=== PATIENT | female | born 1960 | race Caucasian/White ===

== ENCOUNTER 2022-03-16 16:34 | Inpatient (IN) | payer OTHER ==
--- NOTE | 2022-03-16 16:59 | Emergency Department Report ---
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 Pt also reported to be tachycardia. 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 No other modifying or associated factors reported. - Related Data Allergies/Adverse Reactions: Allergies Allergy/AdvReac Type Severity Reaction Status Date / Time No Known Allergies Allergy Unverified 03/16/22 16:49 ED Review of Systems ROS: Stated complaint: STROKE Other details as noted in HPI Comment: All other systems reviewed and negative Neurological: weakness, confusion, abnormal gait ED Past Medical Hx - Past Medical History Previous Medical History?: Yes Hx CVA: Yes ED Neuro Physical Exam - General Limitations: Altered Mental Status, Physical Limitation General appearance: lethargic Suspected Stroke: Yes - Head Head exam: Present: atraumatic - Eye Pupils: Present: normal accommodation - ENT ENT exam: Present: normal exam, normal orophraynx, mucous membranes dry - Neck Neck exam: Present: normal inspection, full ROM. Absent: tenderness - Respiratory Respiratory exam: Present: normal lung sounds bilaterally. Absent: respiratory distress, wheezes, accessory muscle use - Cardiovascular Cardiovascular Exam: Present: regular rate, normal rhythm, normal heart sounds - GI/Abdominal GI/Abdominal exam: Present: soft, normal bowel sounds. Absent: distended, tenderness - Extremities Exam Extremities exam: Present: pedal edema (+ bilateral pitting edema) - NIHSS Assessment Interval: Baseline 1a. Level of Consciousness: resp stimuli/obtunded 1b. LOC Questions: aphasic 1c. LOC Commands: performs no tasks correctly 2. Best Gaze: partial gaze palsy 3. Visual: no visual loss 4. Facial Palsy: partial paralysis 5b. Motor Arm Right: some gravity effort 5a. Motor Arm Left: no movement 6a. Motor Leg Left: no movement 6b. Motor Leg Right: some gravity effort 7. Limb Ataxia: present 1 limb 8. Sensory: severe/total sensory loss 9. Best Language: mute/global aphasia 10. Dysarthria: severe dysarthria 11. Extinction/Inattention: visual/tactile inattention Total Score: 30 Stroke Severity: Severe Stroke - Psychiatric Psychiatric exam: Present: normal affect - Skin Skin exam: Present: warm ED Course Vital Signs 03/16/22 03/16/22 03/16/22 16:46 16:48 16:49 Temperature 98.7 F Pulse Rate 136 H 117 H Respiratory 16 22 18 Rate Blood Pressure Blood Pressure 130/91 129/86 [Left] O2 Sat by Pulse 100 97 98 Oximetry 03/16/22 03/16/22 03/16/22 17:22 17:31 17:45 Temperature Pulse Rate 119 H 119 H 119 H Respiratory 15 21 22 Rate Blood Pressure 139/86 129/86 Blood Pressure [Left] O2 Sat by Pulse 97 97 Oximetry 03/16/22 03/16/22 03/16/22 18:01 18:15 18:31 Temperature Pulse Rate 118 H 118 H 117 H Respiratory 14 21 17 Rate Blood Pressure 129/91 124/85 128/92 Blood Pressure [Left] O2 Sat by Pulse 97 97 96 Oximetry 03/16/22 03/16/22 03/16/22 18:45 19:01 19:15 Temperature Pulse Rate 115 H 115 H 114 H Respiratory 20 20 20 Rate Blood Pressure 115/80 128/82 131/86 Blood Pressure [Left] O2 Sat by Pulse 97 97 97 Oximetry 03/16/22 03/16/22 03/16/22 19:31 19:45 20:01 Temperature Pulse Rate 114 H 114 H 113 H Respiratory 19 17 20 Rate Blood Pressure 144/70 128/72 118/67 Blood Pressure [Left] O2 Sat by Pulse 97 98 98 Oximetry 03/16/22 03/16/22 03/16/22 20:15 20:31 20:45 Temperature Pulse Rate 113 H 111 H 102 H Respiratory 15 17 18 Rate Blood Pressure 124/69 121/56 112/62 Blood Pressure [Left] O2 Sat by Pulse 98 97 99 Oximetry - Reevaluation(s) Reevaluation #1: 03/16/22 22:35 Dr. Casas from [facility] call me back and let me know that there would not be any medical or stepdown bed for this patient so therefore we can go ahead and admit patient to our hospital. At this point I called Dr. Chanel who accepted patient for further evaluation and treatment. - Consultations Consultation #1: 03/16/22 20:46 Dr Casas at [facility] consulted who plan to request for bed and call me back. 03/16/22 21:01 Dr Casas called and wanted her lactate acid-- immediately - Lab Data Result diagrams: 03/16/22 18:13 03/16/22 18:13 Lab Results 03/16/22 03/16/22 03/16/22 Range/Units 16:35 16:49 16:49 WBC (4.5-11.0) K/mm3 RBC (3.65-5.03) M/mm3 Hgb (10.1-14.3) gm/dl Hct (30.3-42.9) % MCV (79-97) fl MCH (28-32) pg MCHC (30-34) % RDW (13.2-15.2) % Plt Count (140-440) K/mm3 Add Manual Diff Total Counted Seg Neuts % (Manual) (40.0-70.0) % Band Neutrophils % % Lymphocytes % (Manual) (13.4-35.0) % Reactive Lymphs % (Man) % Monocytes % (Manual) (0.0-7.3) % Eosinophils % (Manual) (0.0-4.3) % Basophils % (Manual) (0.0-1.8) % Metamyelocytes % % Myelocytes % % Promyelocytes % % Blast Cells % % Nucleated RBC % Seg Neutrophils # Man (1.8-7.7) K/mm3 Band Neutrophils # K/mm3 Lymphocytes # (Manual) (1.2-5.4) K/mm3 Abs React Lymphs (Man) K/mm3 Monocytes # (Manual) (0.0-0.8) K/mm3 Eosinophils # (Manual) (0.0-0.4) K/mm3 Basophils # (Manual) (0.0-0.1) K/mm3 Metamyelocytes # K/mm3 Myelocytes # K/mm3 Promyelocytes # K/mm3 Blast Cells # K/mm3 WBC Morphology Hypersegmented Neuts Hyposegmented Neuts Hypogranular Neuts Smudge Cells Toxic Granulation Toxic Vacuolation Dohle Bodies Pelger-Huet Anomaly Patsy Rods Platelet Estimate Clumped Platelets Plt Clumps, EDTA Large Platelets Giant Platelets Platelet Satelliting Plt Morphology Comment RBC Morphology Dimorphic RBCs Polychromasia Hypochromasia Poikilocytosis Anisocytosis Microcytosis Macrocytosis Spherocytes Pappenheimer Bodies Sickle Cells Target Cells Tear Drop Cells Ovalocytes Helmet Cells [place] Bodies [place] Rings [place] Cells Bite Cells Crenated Cell Elliptocytes Acanthocytes (Spur) Rouleaux Hemoglobin C Crystals Schistocytes Malaria parasites Kali Bodies Hem Pathologist Commnt PT (12.2-14.9) Sec. INR (0.87-1.13) APTT (24.2-36.6) Sec. Thrombin Time (15.1-19.6) Sec. Sodium (137-145) mmol/L Potassium (3.6-5.0) mmol/L Chloride (98-107) mmol/L Carbon Dioxide (22-30) mmol/L Anion Gap mmol/L BUN (7-17) mg/dL Creatinine (0.6-1.2) mg/dL Estimated GFR ml/min BUN/Creatinine Ratio % Glucose (65-100) mg/dL POC Glucose 162 H (70-105) mg/dL Lactic Acid (0.7-2.0) mmol/L Calcium (8.4-10.2) mg/dL Total Bilirubin (0.1-1.2) mg/dL AST (5-40) units/L ALT (7-56) units/L Alkaline Phosphatase (35-129) units/L Total Creatine Kinase (30-135) units/L CK-MB (CK-2) (0.0-4.0) ng/mL CK-MB (CK-2) Rel Index (0-4) Troponin T (0.00-0.029) ng/mL Total Protein (6.3-8.2) g/dL Albumin (3.9-5) g/dL Albumin/Globulin Ratio % Triglycerides (2-149) mg/dL Cholesterol (50-199) mg/dL LDL Cholesterol Direct (50-130) mg/dL HDL Cholesterol (40-59) mg/dL Cholesterol/HDL Ratio % Urine Color Yellow (Yellow) Urine Turbidity Cloudy (Clear) Specific [place] (Man) 1.030 (1.003-1.030) Ur Protein (Man) 3+ (Negative) mg/dL Ur Ketones (Man) 1+ (Negative) Urine Bilirubin (Man) Large (Negative) Urine WBC (Auto) 24.0 H (0.0-6.0) /HPF Urine RBC (Auto) 14.0 (0.0-6.0) /HPF U Epithel Cells (Auto) 16.0 H (0-13.0) /HPF Urine Bacteria (Auto) 2+ (Negative) /HPF Urine RBC (Manual) 1+ (Negative) Calcium Oxalate Crystal 1+ Amorphous Crystals 3+ Urine Mucus Few /HPF Urine Opiates Screen Negative Urine Methadone Screen Negative Ur Barbiturates Screen Negative Ur Phencyclidine Scrn Negative Ur Amphetamines Screen Negative U Benzodiazepines Scrn Negative Urine Cocaine Screen Negative U Marijuana (THC) Screen Negative Drugs of Abuse Note Disclamer 03/16/22 03/16/22 03/16/22 Range/Units 18:13 18:13 18:13 WBC 22.4 H (4.5-11.0) K/mm3 RBC 4.20 (3.65-5.03) M/mm3 Hgb 11.7 (10.1-14.3) gm/dl Hct 36.8 (30.3-42.9) % MCV 88 (79-97) fl MCH 28 (28-32) pg MCHC 32 (30-34) % RDW 15.0 (13.2-15.2) % Plt Count 271 (140-440) K/mm3 Add Manual Diff Complete Total Counted 100 Seg Neuts % (Manual) 90.0 H (40.0-70.0) % Band Neutrophils % 0 % Lymphocytes % (Manual) 5.0 L (13.4-35.0) % Reactive Lymphs % (Man) 0 % Monocytes % (Manual) 5.0 (0.0-7.3) % Eosinophils % (Manual) 0 (0.0-4.3) % Basophils % (Manual) 0 (0.0-1.8) % Metamyelocytes % 0 % Myelocytes % 0 % Promyelocytes % 0 % Blast Cells % 0 % Nucleated RBC % Not Reportable Seg Neutrophils # Man 20.2 H (1.8-7.7) K/mm3 Band Neutrophils # 0.0 K/mm3 Lymphocytes # (Manual) 1.1 L (1.2-5.4) K/mm3 Abs React Lymphs (Man) 0.0 K/mm3 Monocytes # (Manual) 1.1 H (0.0-0.8) K/mm3 Eosinophils # (Manual) 0.0 (0.0-0.4) K/mm3 Basophils # (Manual) 0.0 (0.0-0.1) K/mm3 Metamyelocytes # 0.0 K/mm3 Myelocytes # 0.0 K/mm3 Promyelocytes # 0.0 K/mm3 Blast Cells # 0.0 K/mm3 WBC Morphology Not Reportable Hypersegmented Neuts Not Reportable Hyposegmented Neuts Not Reportable Hypogranular Neuts Not Reportable Smudge Cells Not Reportable Toxic Granulation Not Reportable Toxic Vacuolation Not Reportable Dohle Bodies Not Reportable Pelger-Huet Anomaly Not Reportable Patsy Rods Not Reportable Platelet Estimate Consistent w auto Clumped Platelets Not Reportable Plt Clumps, EDTA Not Reportable Large Platelets Not Reportable Giant Platelets Not Reportable Platelet Satelliting Not Reportable Plt Morphology Comment Not Reportable RBC Morphology Not Reportable Dimorphic RBCs Not Reportable Polychromasia Not Reportable Hypochromasia Not Reportable Poikilocytosis Not Reportable Anisocytosis Not Reportable Microcytosis Not Reportable Macrocytosis Not Reportable Spherocytes Not Reportable Pappenheimer Bodies Not Reportable Sickle Cells Not Reportable Target Cells Not Reportable Tear Drop Cells Not Reportable Ovalocytes Not Reportable Helmet Cells Not Reportable [place] Bodies Not Reportable [place] Rings Not Reportable [place] Cells Not Reportable Bite Cells Not Reportable Crenated Cell Not Reportable Elliptocytes Not Reportable Acanthocytes (Spur) Not Reportable Rouleaux Not Reportable Hemoglobin C Crystals Not Reportable Schistocytes Not Reportable Malaria parasites Not Reportable Kali Bodies Not Reportable Hem Pathologist Commnt No PT 15.2 H (12.2-14.9) Sec. INR 1.08 (0.87-1.13) APTT 31.8 (24.2-36.6) Sec. Thrombin Time 22.4 H (15.1-19.6) Sec. Sodium 150 H (137-145) mmol/L Potassium 4.2 (3.6-5.0) mmol/L Chloride 111.2 H (98-107) mmol/L Carbon Dioxide 23 (22-30) mmol/L Anion Gap 20 mmol/L BUN 49 H (7-17) mg/dL Creatinine 2.5 H (0.6-1.2) mg/dL Estimated GFR 20 ml/min BUN/Creatinine Ratio 20 % Glucose 162 H (65-100) mg/dL POC Glucose (70-105) mg/dL Lactic Acid (0.7-2.0) mmol/L Calcium 9.2 (8.4-10.2) mg/dL Total Bilirubin 0.60 (0.1-1.2) mg/dL AST 34 (5-40) units/L ALT 22 (7-56) units/L Alkaline Phosphatase 130 H (35-129) units/L Total Creatine Kinase 454 H (30-135) units/L CK-MB (CK-2) 7.0 H (0.0-4.0) ng/mL CK-MB (CK-2) Rel Index 1.5 (0-4) Troponin T 0.145 H* (0.00-0.029) ng/mL Total Protein 7.1 (6.3-8.2) g/dL Albumin 3.2 L (3.9-5) g/dL Albumin/Globulin Ratio 0.8 % Triglycerides 216 H (2-149) mg/dL Cholesterol 126 (50-199) mg/dL LDL Cholesterol Direct 53 (50-130) mg/dL HDL Cholesterol 32 L (40-59) mg/dL Cholesterol/HDL Ratio 3.93 % Urine Color (Yellow) Urine Turbidity (Clear) Specific [place] (Man) (1.003-1.030) Ur Protein (Man) (Negative) mg/dL Ur Ketones (Man) (Negative) Urine Bilirubin (Man) (Negative) Urine WBC (Auto) (0.0-6.0) /HPF Urine RBC (Auto) (0.0-6.0) /HPF U Epithel Cells (Auto) (0-13.0) /HPF Urine Bacteria (Auto) (Negative) /HPF Urine RBC (Manual) (Negative) Calcium Oxalate Crystal Amorphous Crystals Urine Mucus /HPF Urine Opiates Screen Urine Methadone Screen Ur Barbiturates Screen Ur Phencyclidine Scrn Ur Amphetamines Screen U Benzodiazepines Scrn Urine Cocaine Screen U Marijuana (THC) Screen Drugs of Abuse Note 03/16/22 03/16/22 Range/Units 19:16 21:38 WBC (4.5-11.0) K/mm3 RBC (3.65-5.03) M/mm3 Hgb (10.1-14.3) gm/dl Hct (30.3-42.9) % MCV (79-97) fl MCH (28-32) pg MCHC (30-34) % RDW (13.2-15.2) % Plt Count (140-440) K/mm3 Add Manual Diff Total Counted Seg Neuts % (Manual) (40.0-70.0) % Band Neutrophils % % Lymphocytes % (Manual) (13.4-35.0) % Reactive Lymphs % (Man) % Monocytes % (Manual) (0.0-7.3) % Eosinophils % (Manual) (0.0-4.3) % Basophils % (Manual) (0.0-1.8) % Metamyelocytes % % Myelocytes % % Promyelocytes % % Blast Cells % % Nucleated RBC % Seg Neutrophils # Man (1.8-7.7) K/mm3 Band Neutrophils # K/mm3 Lymphocytes # (Manual) (1.2-5.4) K/mm3 Abs React Lymphs (Man) K/mm3 Monocytes # (Manual) (0.0-0.8) K/mm3 Eosinophils # (Manual) (0.0-0.4) K/mm3 Basophils # (Manual) (0.0-0.1) K/mm3 Metamyelocytes # K/mm3 Myelocytes # K/mm3 Promyelocytes # K/mm3 Blast Cells # K/mm3 WBC Morphology Hypersegmented Neuts Hyposegmented Neuts Hypogranular Neuts Smudge Cells Toxic Granulation Toxic Vacuolation Dohle Bodies Pelger-Huet Anomaly Patsy Rods Platelet Estimate Clumped Platelets Plt Clumps, EDTA Large Platelets Giant Platelets Platelet Satelliting Plt Morphology Comment RBC Morphology Dimorphic RBCs Polychromasia Hypochromasia Poikilocytosis Anisocytosis Microcytosis Macrocytosis Spherocytes Pappenheimer Bodies Sickle Cells Target Cells Tear Drop Cells Ovalocytes Helmet Cells [place] Bodies [place] Rings [place] Cells Bite Cells Crenated Cell Elliptocytes Acanthocytes (Spur) Rouleaux Hemoglobin C Crystals Schistocytes Malaria parasites Kali Bodies Hem Pathologist Commnt PT (12.2-14.9) Sec. INR (0.87-1.13) APTT (24.2-36.6) Sec. Thrombin Time (15.1-19.6) Sec. Sodium (137-145) mmol/L Potassium (3.6-5.0) mmol/L Chloride (98-107) mmol/L Carbon Dioxide (22-30) mmol/L Anion Gap mmol/L BUN (7-17) mg/dL Creatinine (0.6-1.2) mg/dL Estimated GFR ml/min BUN/Creatinine Ratio % Glucose (65-100) mg/dL POC Glucose (70-105) mg/dL Lactic Acid 3.30 H* 1.90 (0.7-2.0) mmol/L Calcium (8.4-10.2) mg/dL Total Bilirubin (0.1-1.2) mg/dL AST (5-40) units/L ALT (7-56) units/L Alkaline Phosphatase (35-129) units/L Total Creatine Kinase (30-135) units/L CK-MB (CK-2) (0.0-4.0) ng/mL CK-MB (CK-2) Rel Index (0-4) Troponin T (0.00-0.029) ng/mL Total Protein (6.3-8.2) g/dL Albumin (3.9-5) g/dL Albumin/Globulin Ratio % Triglycerides (2-149) mg/dL Cholesterol (50-199) mg/dL LDL Cholesterol Direct (50-130) mg/dL HDL Cholesterol (40-59) mg/dL Cholesterol/HDL Ratio % Urine Color (Yellow) Urine Turbidity (Clear) Specific [place] (Man) (1.003-1.030) Ur Protein (Man) (Negative) mg/dL Ur Ketones (Man) (Negative) Urine Bilirubin (Man) (Negative) Urine WBC (Auto) (0.0-6.0) /HPF Urine RBC (Auto) (0.0-6.0) /HPF U Epithel Cells (Auto) (0-13.0) /HPF Urine Bacteria (Auto) (Negative) /HPF Urine RBC (Manual) (Negative) Calcium Oxalate Crystal Amorphous Crystals Urine Mucus /HPF Urine Opiates Screen Urine Methadone Screen Ur Barbiturates Screen Ur Phencyclidine Scrn Ur Amphetamines Screen U Benzodiazepines Scrn Urine Cocaine Screen U Marijuana (THC) Screen Drugs of Abuse Note - Radiology Data FINDINGS: BRAIN / INTRACRANIAL CONTENTS: Old, prominent corpus striatal infarct suggested on the right. Old, subacute to chronic infarcts suggested in the right parietotemporal region. Multiple lacunar type infarcts seen throughout the gangliocapsular and thalamic regions. It would be difficult to evaluate for small areas of ischemia without diffusion imaging by MRI. Old, branch PICA infarcts suggested on the left. There is a subtle, linearly oriented, region of increased attenuation in the gangliocapsular region on the right, which may be related to a remote injury, residual contrast in an area of subacute ischemia, or could be related to a late subacute hemorrhage in this region, which is less likely given the configuration of this finding. Comparison with any prior exam would be helpful, if available. Otherwise, no acute hemorrhage, mass effect, midline shift, hydrocephalus, or acute, large territorial infarct. Mild to moderate, diffuse cerebral and cerebellar atrophy noted. There are moderate to marked areas of decreased attenuation in the white matter of the cerebral hemispheres, as well as the gangliocapsular regions. These are nonspecific findings and may be related to microangiopathy (hypertension, diabetes, atherosclerosis), given the patient's age. Pontine disease noted as well. CRANIOCERVICAL JUNCTION: No significant abnormality. ORBITS: No significant abnormality of visualized orbits. SINUSES / MASTOIDS: Partial opacification of the left sphenoid sinus noted. Mild mucosal thickening in the mastoids. ADDITIONAL FINDINGS: Atherosclerotic disease is seen in the anterior and posterior circulation. Small sebaceous cyst seen superficial the right parietal bone. There may be a small lipoma deep to the left sternocleidomastoid muscle, which should be of no clinical significance. This finding is incompletely visualized on this exam. IMPRESSION: 1. Multiple , prior cerebral insults identified, as described above. It would be difficult to evaluate for small areas of ischemia without diffusion imaging by MRI. Please clinically correlate. 2. Subtle area of increased attenuation in the right gangliocapsular region, as described above. Please clinically correlate. - Medical Decision Making brought in with concern for stroke with h/o multiple stroke with left sided weakness and non verbal -- unsure this patient baseline-- with tachycardia this could also be systemic infection so will go ahead and order routine labs-- including CBC, CMP, UA, also CT head, CTA neck and brain-- Dr Trevor Prasad consulted via [facility] [employer] --who also access patient and did not recommend tPA at this time looking at this patient history of multiple stroke and with very high NIH score-- pending CT result-- CT head noted with FINDINGS: BRAIN / INTRACRANIAL CONTENTS: Old, prominent corpus striatal infarct suggested on the right. Old, subacute to chronic infarcts suggested in the right parietotemporal region. Multiple lacunar type infarcts seen throughout the gangliocapsular and thalamic regions. It would be difficult to evaluate for small areas of ischemia without diffusion imaging by MRI. Old, branch PICA infarcts suggested on the left. There is a subtle, linearly oriented, region of increased attenuation in the gangliocapsular region on the right, which may be related to a remote injury, residual contrast in an area of subacute ischemia, or could be related to a late subacute hemorrhage in this region, which is less likely given the configuration of this finding. Comparison with any prior exam would be helpful, if available. Otherwise, no acute hemorrhage, mass effect, midline shift, hydrocephalus, or acute, large territorial infarct. Mild to moderate, diffuse cerebral and cerebellar atrophy noted. There are moderate to marked areas of decreased attenuation in the white matter of the cerebral hemispheres, as well as the gangliocapsular regions. These are nonspecific findings and may be related to microangiopathy (hypertension, diabetes, atherosclerosis), given the patient's age. Pontine disease noted as well. CRANIOCERVICAL JUNCTION: No significant abnormality. ORBITS: No significant abnormality of visualized orbits. SINUSES / MASTOIDS: Partial opacification of the left sphenoid sinus noted. Mild mucosal thickening in the mastoids. ADDITIONAL FINDINGS: Atherosclerotic disease is seen in the anterior and posterior circulation. Small sebaceous cyst seen superficial the right parietal bone. There may be a small lipoma deep to the left sternocleidomastoid muscle, which should be of no clinical significance. This finding is incompletely visualized on this exam. IMPRESSION: 1. Multiple , prior cerebral insults identified, as described above. It would be difficult to evaluate for small areas of ischemia without diffusion imaging by MRI. Please clinically correlate. 2. Subtle area of increased attenuation in the right gangliocapsular region, as described above. Please clinically correlate. CTA neck and brain did not show any acute findings but old Labs reviewed and noted with elevated BUN/Cr- 49/2.5 with normal potassium this could be dehydration vs mild renal insufficiency -- will hydrate gently with 500 cc IVF ns considering this patient CHF Also noted is elevated NA+ 150 with total CK 454 and troponin 0.145 which might be as a result of the renal failure-- but because this patient is non verbal will continue to monitor and repeat Also noted with elevated lactic acid 3.30 and leukocytosis at 24, 000 with left shift and UA noted with urine bacterial -- with tachycardia this is likely UTI and Sepsis - will go ahead and start Cefe[facility] -- and admit-- Critical Care Time: Yes (120) Critical care time in (mins) excluding proc time.: 120 Critical care attestation.: If time is entered above; I have spent that time in minutes in the direct care of this critically ill patient, excluding procedure time. here with concern for stoke and noted with possible sepsis and due to high probability of clinically significant, life threatening deterioration, this patient required my highest level of preparedness to intervene emergently and I personally spent this critical care time directly and personally managing this patient. This critical care time included obtaining a history; examining this patient; pulse oximetry ; ordering and review of studies ; arranging urgent treatment with development of a management plan ; evaluation of patient's response to treatment ; frequent reassessment ; and, discussion with other providers. This critical care time was performed to assess and manage the high probability of imminent, life-threatening deterioration that could result in multiple organ damage if not done in a timely fashion. ED Disposition Clinical Impression: Left-sided weakness Stroke Qualifiers: CVA mechanism: unspecified Qualified Code(s): I63.9 - Cerebral infarction, unspecified UTI (urinary tract infection) Qualifiers: Urinary tract infection type: site unspecified Hematuria presence: without hematuria Qualified Code(s): N39.0 - Urinary tract infection, site not specified Sepsis Qualifiers: Sepsis type: sepsis due to unspecified organism Sepsis acute organ dysfunction status: unspecified Qualified Code(s): A41.9 - Sepsis, unspecified organism Disposition: 09 ADMITTED INPATIENT Is pt being admited?: Yes Does the pt Need Aspirin: No Condition: Stable Referrals: ARIAS PERKINS MD [Primary Care Provider] - 3-5 Days
--- NOTE | 2022-03-16 17:31 | Cat Scan Report ---
CT head/brain wo con INDICATION / CLINICAL INFORMATION: 62 years Female; Stroke symptoms. TECHNIQUE: Routine CT head without contrast. All CT scans at this location are performed using CT dos e reduction for ALARA by means of automated exposure control. COMPARISON: None. FINDINGS: BRAIN / INTRACRANIAL CONTENTS: Old, prominent corpus striatal infarct suggested on the right. Old, gonzalez bacute to chronic infarcts suggested in the right parietotemporal region. Multiple lacunar type infar cts seen throughout the gangliocapsular and thalamic regions. It would be difficult to evaluate for s mall areas of ischemia without diffusion imaging by MRI. Old, branch PICA infarcts suggested on the left. There is a subtle, linearly oriented, region of increased attenuation in the gangliocapsular region o n the right, which may be related to a remote injury, residual contrast in an area of subacute ischem ia, or could be related to a late subacute hemorrhage in this region, which is less likely given the configuration of this finding. Comparison with any prior exam would be helpful, if available. Otherwise, no acute hemorrhage, mass effect, midline shift, hydrocephalus, or acute, large territori al infarct. Mild to moderate, diffuse cerebral and cerebellar atrophy noted. There are moderate to marked areas of decreased attenuation in the white matter of the cerebral hemis pheres, as well as the gangliocapsular regions. These are nonspecific findings and may be related to microangiopathy (hypertension, diabetes, atherosclerosis), given the patient's age. Pontine disease n oted as well. CRANIOCERVICAL JUNCTION: No significant abnormality. ORBITS: No significant abnormality of visualized orbits. SINUSES / MASTOIDS: Partial opacification of the left sphenoid sinus noted. Mild mucosal thickening i n the mastoids. ADDITIONAL FINDINGS: Atherosclerotic disease is seen in the anterior and posterior circulation. Small sebaceous cyst seen superficial the right parietal bone. There may be a small lipoma deep to the left sternocleidomastoid muscle, which should be of no clinic al significance. This finding is incompletely visualized on this exam. IMPRESSION: 1. Multiple , prior cerebral insults identified, as described above. It would be difficult to evaluat e for small areas of ischemia without diffusion imaging by MRI. Please clinically correlate. 2. Subtle area of increased attenuation in the right gangliocapsular region, as described above. Plea se clinically correlate. Signer Name: Chris Valero MD, III Signed: 03/16/2022 5:27 PM Workstation Name: [id number]
--- NOTE | 2022-03-16 17:43 | Cat Scan Report ---
CTA neck without and with intravenous contrast material CLINICAL HISTORY: stroke sx TECHNIQUE: Following acquisition of a timing bolus 0.625 mm thick contiguous axial scans were obtained from aort ic arch to the skull base during rapid bolus intravenous contrast infusion. In addition to evaluation of axial source images multiplanar reconstructions were produced and reviewed for this report. 3 roddy ne MIP reconstructions were produced and reviewed. Contrast dose report: Omnipaque 350: 100 ml, administered intravenously All CT examinations performed at this facility utilize modulated dose reduction, iterative reconstruc tion or weight-based dosing, as appropriate, to obtain a radiation dose which is as low as can reason ably be achieved. FINDINGS: Thoracic aorta:No abnormalities are identified along the course of the thoracic aorta..The origins of the great vessels have an unremarkable appearance. Brachiocephalic artery, left common carotid arter y origin and left subclavian artery all have an unremarkable appearance. Right carotid artery: Mildly calcified atherosclerotic plaque is observed along the course of the rig ht carotid bulb and proximal R ICA. There is no associated stenosis. Left carotid artery: Mildly calcified atherosclerotic plaque is seen along the posterior margin of th e carotid bulb extending up into the proximal LICA. There is no associated stenosis. Posterior circulation: The V1, V2 and V3 segments of the vertebral arteries have an unremarkable appe arance. Calcified atherosclerotic plaque is seen along the course of the V4 segments of the vertebral arteries bilaterally. The degree of stenosis, if any, is determined utilizing NASCET like criteria. In this case there is no indication of hemodynamically significant stenosis at the carotid bifurcations or elsewhere. Evaluation of the nonvascular soft tissue structures reveal no abnormality. There is no indication of cervical lymphadenopathy. No abnormalities are seen along the course of the airway. Visualized porti ons of the parotid glands and the submandibular salivary glands have a normal appearance. Thyroid gla nd has a normal appearance. Evaluation of the lung apices reveals no evidence of lung nodule or infil trate. Evaluation of the cervical spine revealed no significant abnormalities. IMPRESSION: 1. No indication of hemodynamically significant stenosis at the carotid bifurcations or elsewhere. Signer Name: Konrad Proctor MD Signed: 03/16/2022 5:39 PM Workstation Name: [id number]
--- NOTE | 2022-03-16 17:54 | Cat Scan Report ---
CTA head with intravenous contrast CLINICAL HISTORY: stroke sx TECHNIQUE: 0.625 mm thick contiguous axial scans were obtained from the skull base to the skull vertex during r apid bolus administration of intravenous contrast material. Multiplanar reconstructions were produced in the coronal and sagittal planes. In addition 3 plane MIP instructions were produced and reviewed for this report. The axial source images and reconstructed images were reviewed for this report. CONTRAST DOSE REPORT: Omnipaque 350: 100 ml administered intravenously. All CT scans at this location are performed using CT dose reduction for ALARA by means of automated e xposure control. FINDINGS: Internal carotid arteries: Mildly calcified atherosclerotic plaque is observed along the course the c avernous segments of both internal carotid arteries extending up into the clinoid segments bilaterall y. There is no associated stenosis. Middle cerebral arteries: M1 segments of the middle cerebral arteries have a normal and symmetrical a ppearance. M2 and M3 segments have a symmetrical appearance. Anterior cerebral arteries:Bilaterally symmetrical A1 segments are demonstrated. No abnormalities are seen along the course of the A2 segments or their visualized pericallosal branches. A small anterior communicating artery is identified. Vertebral arteries: Calcified atherosclerotic plaque is present along the V4 segments of both vertebr al arteries. There is a less than 50% stenosis of the distal V4 segment on the right. Basilar artery:Basilar artery has an unremarkable appearance. Posterior cerebral arteries: origin of the left posterior cerebral arteries noted. Otherwise no rmal and symmetrical posterior cerebral arteries are demonstrated. A small posterior communicating ar edward is observed on the right. [place]:Not intact. see above. Dural sinuses: Limited evaluation of the dural sinuses is possible on this study. There is a filling defect in the lumen of the right transverse sinus consistent with nonocclusive thrombus in this locat ion. The left transverse sinus is hypoplastic. IMPRESSION: 1. No indication of hemodynamically significant intracranial stenosis. 2. Filling defect in the lumen of the right transverse sinus is identified. This is consistent with n onocclusive thrombus in the left transverse sinus. Signer Name: Konrad Proctor MD Signed: 03/16/2022 5:50 PM Workstation Name: [id number]
--- NOTE | 2022-03-16 17:57 | Consultation ---
History of Present Illness History of present illness: [facility] Consult Note # Demographics Consult Type: Acute Stroke Level 1 (0-4.5 hrs) Patient Location: Emergency Room First Name: Aby Last Name: Jeb Date of : 1960 Age: 62 Gender: Female Facility: [facility] Time of Initial Page (): 03/16/2022, 16:32 Time of Return Call ( Time): 03/16/2022, 16:32 # HPI Chief Complaint: weakness (focal) History: 62F with multiple prior strokes and left sided weakness, non-verbal at baseline, CHF, seizures, DM presents from senior care with worsened left-sided weakness. LKWT 1500 per facility staff. Fingerstick 162. Blood pressure 100/70 initially. # Scores Time of exam and NIHSS (): 03/16/2022, 16:33 Level of Consciousness 1a: [2] = Not alert; requires strong or painful stim LOC Questions 1b: [2] = Answers neither correctly LOC Commands 1c: [2] = Performs neither correctly Best Gaze 2: [0] = Normal Visual 3: [3] = Bilateral hemianopia Facial Palsy 4: [2] = Partial paralysis Motor Arm Left 5a: [4] = No movement Motor Arm Right 5b: [2] = Some effort against gravity Motor Leg Left 6a: [4] = No movement Motor Leg Right 6b: [2] = Some effort against gravity Limb Ataxia 7: [0] = Absent Sensory 8: [2] = Severe to total sensory loss Best Language 9: [3] = Mute Dysarthria 10: [2] = Severe dysarthria Extinction and Inattention 11: [2] = Profound enrique-inattention or extinction to more than one modality NIHSS Total: 32 # Data Time Head CT personally read by me ( Time): 03/16/2022, 16:[address]: no bleed per radiologist read chronic R MCA territory infarct, chronic left PICA infarct CTA Head: no large vessel occlusion preliminarily reviewed by me, please refer to radiology read for official reading CTA Neck: patent vessels per radiologist read # Assessment Impression: Chronic strokes, likely metabolic encephalopathy Not consistent with acute stroke given the high NIHSS and no LVO # Plan Thrombolytic/Intervention: NOT IV Thrombolysis or IA Intervention candidate Thrombolytic/Intraarterial Exclusion: IV thrombolytic and IA intervention considered but not recommended as this patient's symptoms are not clinically consistent with an assumed diagnosis of stroke Imaging: (urgency: routine): MRI Brain without contrast Other: If patient has any neurological deterioration please call me back immediately permissive hypertension telemetry monitoring I have discussed my recommendations with the referring provider Disposition: admit # Logistics Telemedicine: Interactive 2 way audio and visual telecommunication technology was utilized during this visit # Demographics First Name: Aby Last Name: Jeb Facility: [facility] Electronically signed at 03/16/2022 17:57 (Eastern Time) by Osmar Murray MD Medications and Allergies Allergies Allergy/AdvReac Type Severity Reaction Status Date / Time No Known Allergies Allergy Unverified 03/16/22 16:49 Physical Examination - Vital Signs Vital Signs: Vital Signs Pulse Resp BP Pulse Ox 136 H 16 130/91 100 03/16/22 16:46 03/16/22 16:46 03/16/22 16:46 03/16/22 16:46 Results - Laboratory Findings Abnormal Lab Findings: Abnormal Labs 03/16/22 16:35 POC Glucose 162 H
[2022-03-16 18:27] LABS: Hematocrit 36.8 % (30.3-42.9); Hemoglobin 11.7 gm/dl (10.1-14.3); Mean Corpuscular HGB Conc 32 % (30-34); Mean Corpuscular Volume 88 fl (79-97); Platelet Count 271 K/mm3 (140-440)
[2022-03-16 18:46] LABS: INR 1.08 (0.87-1.13)
[2022-03-16 18:47] LABS: Partial Thromboplastin Time 31.8 Sec. (24.2-36.6); Thrombin Time 22.4 Sec. (15.1-19.6)
[2022-03-16 18:55] LABS: Amorphous Crystals,Urine 3+; Bacteria,Urine 2+ /HPF (Negative); Calcium Oxalate Crystals,Urine 1+; Mucus,Urine FEW /HPF
[2022-03-16 19:05] LABS: Albumin 3.2 g/dL (3.9-5); Calcium 9.2 mg/dL (8.4-10.2)
[2022-03-16] MEDS ORDERED: SODIUM CHLORIDE 0.9% 500 ML 500 ML IV ONE (19:08)
[2022-03-16 19:15] LABS: Color,Urine Yellow (Yellow)
[2022-03-16 19:23] LABS: Chol/HDL Ratio 3.93 %
[2022-03-16 19:26] LABS: Amphetamine Screen,Urine Negative; Benzodiazepines Screen,Urine Negative; Cannabinoid Screen,Urine Negative; Cocaine Screen,Urine Negative; Methadone Screen,Urine Negative; Opiate Screen,Urine Negative
[2022-03-16] MEDS ORDERED: CEFEPIME/NS 2 GM/100 ML 2 GM/100 ML BAG IV ONE (20:47)
[2022-03-16] MEDS ORDERED: SODIUM CHLORIDE 0.9% 1000 ML 1,000 ML IV ONE (20:59)
[2022-03-16 21:15] LABS: Basophils % (Manual) 0 % (0.0-1.8); Eosinophils % (Manual) 0 % (0.0-4.3); Platelet Estimate Consistent w Auto; Total Cells Counted 100
--- NOTE | 2022-03-16 22:41 | XRay Report ---
CHEST 1 VIEW INDICATION / CLINICAL INFORMATION: productive cough. COMPARISON: None available. FINDINGS: SUPPORT DEVICES: None. HEART / MEDIASTINUM: Heart size is within normal limits. Mediastinal contour demonstrates no signific ant abnormality. LUNGS / PLEURA: Lungs are clear for degree of inspiration and technique utilized. BONES: No significant osseous abnormality. ADDITIONAL FINDINGS: No significant additional findings. IMPRESSION: 1. No active cardiopulmonary disease. Signer Name: Jorje Rodas II, MD Signed: 03/16/2022 10:37 PM Workstation Name: [id number]
[2022-03-16] MEDS ORDERED: MORPHINE 2 MG/1 ML INJ IV PRN (23:01)
[2022-03-16] MEDS ORDERED: ONDANSETRON 4 MG/2 ML INJ IV PRN (23:01)
[2022-03-16] MEDS ORDERED: ALBUTEROL 2.5 MG/3 ML NEBU IH PRN (23:01)
[2022-03-16] MEDS ORDERED: ACETAMINOPHEN 325 MG TAB PO PRN (23:01)
[2022-03-16] MEDS ORDERED: MORPHINE 4 MG/1 ML INJ IV PRN (23:01)
[2022-03-16] MEDS ORDERED: DEXTROSE 50% IN WATER (25GM) 50 ML SYRINGE IV PRN (23:01)
--- NOTE | 2022-03-16 23:11 | History and Physical Report ---
History of Present Illness Date of examination: 03/16/22 Date of admission: 03/16/22 Chief complaint: Left-sided weakness History of present illness: 62 yo F with 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 Pt also reported to be tachycardia. 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 No other modifying or associated factors reported. CT scan of the head showed 1. Multiple , prior cerebral insults identified, as described above. It would be difficult to evaluate for small areas of ischemia without diffusion imaging by MRI. Please clinically correlate. 2. Subtle area of increased attenuation in the right gangliocapsular region, as described above. Subsequently patient is seen and evaluated by telemetry neurology In the emergency room patient is found to have WBC of 22.4, also patient has UTI. Patient lactic acid is 3.30 and troponin is 0.145. Patient BUN 49 creatinine 2.5 Past History Past Medical History: diabetes, heart failure, hypertension, stroke Past Surgical History: No surgical history Social history: no significant social history Family history: diabetes, hypertension Medications and Allergies Allergies Allergy/AdvReac Type Severity Reaction Status Date / Time No Known Allergies Allergy Unverified 03/16/22 16:49 Review of Systems All systems: negative Constitutional: fatigue, malaise, lethargy, other (Left-sided weakness) Exam - Constitutional Vitals: Temp Pulse Resp BP Pulse Ox 98.6 F 95 H 12 115/71 98 03/16/22 22:41 03/16/22 22:41 03/16/22 22:41 03/16/22 22:41 03/16/22 22:41 General appearance: Present: no acute distress, well-nourished - EENT Eyes: Present: PERRL ENT: hearing intact, clear oral mucosa - Neck Neck: Present: supple, normal ROM - Respiratory Respiratory effort: normal Respiratory: bilateral: CTA - Cardiovascular Heart Sounds: Present: S1 & S2. Absent: rub, click - Extremities Extremities: pulses symmetrical, No edema Peripheral Pulses: within normal limits - Abdominal General gastrointestinal: Present: soft, non-tender, non-distended, normal bowel sounds Female genitourinary: Present: normal - Integumentary Integumentary: Present: clear, warm, dry - Musculoskeletal Musculoskeletal: gait normal, strength equal bilaterally - Psychiatric Psychiatric: other (Patient is lethargic) - Neurologic Neurologic: CNII-XII intact, moves all extremities, other (Patient is lethargic) HEART Score - HEART Score Troponin: Troponin T 0.145 ng/mL (0.00-0.029) H* 03/16/22 18:13 Results - Labs CBC & Chem 7: 03/16/22 18:13 03/16/22 18:13 Labs: Laboratory Last Values WBC 22.4 K/mm3 (4.5-11.0) H 03/16/22 18:13 RBC 4.20 M/mm3 (3.65-5.03) 03/16/22 18:13 Hgb 11.7 gm/dl (10.1-14.3) 03/16/22 18:13 Hct 36.8 % (30.3-42.9) 03/16/22 18:13 MCV 88 fl (79-97) 03/16/22 18:13 MCH 28 pg (28-32) 03/16/22 18:13 MCHC 32 % (30-34) 03/16/22 18:13 RDW 15.0 % (13.2-15.2) 03/16/22 18:13 Plt Count 271 K/mm3 (140-440) 03/16/22 18:13 Add Manual Diff Complete 03/16/22 18:13 Total Counted 100 03/16/22 18:13 Seg Neuts % (Manual) 90.0 % (40.0-70.0) H 03/16/22 18:13 Band Neutrophils % 0 % 03/16/22 18:13 Lymphocytes % (Manual) 5.0 % (13.4-35.0) L 03/16/22 18:13 Reactive Lymphs % (Man) 0 % 03/16/22 18:13 Monocytes % (Manual) 5.0 % (0.0-7.3) 03/16/22 18:13 Eosinophils % (Manual) 0 % (0.0-4.3) 03/16/22 18:13 Basophils % (Manual) 0 % (0.0-1.8) 03/16/22 18:13 Metamyelocytes % 0 % 03/16/22 18:13 Myelocytes % 0 % 03/16/22 18:13 Promyelocytes % 0 % 03/16/22 18:13 Blast Cells % 0 % 03/16/22 18:13 Nucleated RBC % Not Reportable 03/16/22 18:13 Seg Neutrophils # Man 20.2 K/mm3 (1.8-7.7) H 03/16/22 18:13 Band Neutrophils # 0.0 K/mm3 03/16/22 18:13 Lymphocytes # (Manual) 1.1 K/mm3 (1.2-5.4) L 03/16/22 18:13 Abs React Lymphs (Man) 0.0 K/mm3 03/16/22 18:13 Monocytes # (Manual) 1.1 K/mm3 (0.0-0.8) H 03/16/22 18:13 Eosinophils # (Manual) 0.0 K/mm3 (0.0-0.4) 03/16/22 18:13 Basophils # (Manual) 0.0 K/mm3 (0.0-0.1) 03/16/22 18:13 Metamyelocytes # 0.0 K/mm3 03/16/22 18:13 Myelocytes # 0.0 K/mm3 03/16/22 18:13 Promyelocytes # 0.0 K/mm3 03/16/22 18:13 Blast Cells # 0.0 K/mm3 03/16/22 18:13 WBC Morphology Not Reportable 03/16/22 18:13 Hypersegmented Neuts Not Reportable 03/16/22 18:13 Hyposegmented Neuts Not Reportable 03/16/22 18:13 Hypogranular Neuts Not Reportable 03/16/22 18:13 Smudge Cells Not Reportable 03/16/22 18:13 Toxic Granulation Not Reportable 03/16/22 18:13 Toxic Vacuolation Not Reportable 03/16/22 18:13 Dohle Bodies Not Reportable 03/16/22 18:13 Pelger-Huet Anomaly Not Reportable 03/16/22 18:13 Patsy Rods Not Reportable 03/16/22 18:13 Platelet Estimate Consistent w auto 03/16/22 18:13 Clumped Platelets Not Reportable 03/16/22 18:13 Plt Clumps, EDTA Not Reportable 03/16/22 18:13 Large Platelets Not Reportable 03/16/22 18:13 Giant Platelets Not Reportable 03/16/22 18:13 Platelet Satelliting Not Reportable 03/16/22 18:13 Plt Morphology Comment Not Reportable 03/16/22 18:13 RBC Morphology Not Reportable 03/16/22 18:13 Dimorphic RBCs Not Reportable 03/16/22 18:13 Polychromasia Not Reportable 03/16/22 18:13 Hypochromasia Not Reportable 03/16/22 18:13 Poikilocytosis Not Reportable 03/16/22 18:13 Anisocytosis Not Reportable 03/16/22 18:13 Microcytosis Not Reportable 03/16/22 18:13 Macrocytosis Not Reportable 03/16/22 18:13 Spherocytes Not Reportable 03/16/22 18:13 Pappenheimer Bodies Not Reportable 03/16/22 18:13 Sickle Cells Not Reportable 03/16/22 18:13 Target Cells Not Reportable 03/16/22 18:13 Tear Drop Cells Not Reportable 03/16/22 18:13 Ovalocytes Not Reportable 03/16/22 18:13 Helmet Cells Not Reportable 03/16/22 18:13 [place] Bodies Not Reportable 03/16/22 18:13 [place] Rings Not Reportable 03/16/22 18:13 [place] Cells Not Reportable 03/16/22 18:13 Bite Cells Not Reportable 03/16/22 18:13 Crenated Cell Not Reportable 03/16/22 18:13 Elliptocytes Not Reportable 03/16/22 18:13 Acanthocytes (Spur) Not Reportable 03/16/22 18:13 Rouleaux Not Reportable 03/16/22 18:13 Hemoglobin C Crystals Not Reportable 03/16/22 18:13 Schistocytes Not Reportable 03/16/22 18:13 Malaria parasites Not Reportable 03/16/22 18:13 Kali Bodies Not Reportable 03/16/22 18:13 Hem Pathologist Commnt No 03/16/22 18:13 PT 15.2 Sec. (12.2-14.9) H 03/16/22 18:13 INR 1.08 (0.87-1.13) 03/16/22 18:13 APTT 31.8 Sec. (24.2-36.6) 03/16/22 18:13 Thrombin Time 22.4 Sec. (15.1-19.6) H 03/16/22 18:13 Sodium 150 mmol/L (137-145) H 03/16/22 18:13 Potassium 4.2 mmol/L (3.6-5.0) 03/16/22 18:13 Chloride 111.2 mmol/L (98-107) H 03/16/22 18:13 Carbon Dioxide 23 mmol/L (22-30) 03/16/22 18:13 Anion Gap 20 mmol/L 03/16/22 18:13 BUN 49 mg/dL (7-17) H 03/16/22 18:13 Creatinine 2.5 mg/dL (0.6-1.2) H 03/16/22 18:13 Estimated GFR 20 ml/min 03/16/22 18:13 BUN/Creatinine Ratio 20 % 03/16/22 18:13 Glucose 162 mg/dL (65-100) H 03/16/22 18:13 POC Glucose 162 mg/dL (70-105) H 03/16/22 16:35 Lactic Acid 1.90 mmol/L (0.7-2.0) 03/16/22 21:38 Calcium 9.2 mg/dL (8.4-10.2) 03/16/22 18:13 Total Bilirubin 0.60 mg/dL (0.1-1.2) 03/16/22 18:13 AST 34 units/L (5-40) 03/16/22 18:13 ALT 22 units/L (7-56) 03/16/22 18:13 Alkaline Phosphatase 130 units/L (35-129) H 03/16/22 18:13 Total Creatine Kinase 454 units/L (30-135) H 03/16/22 18:13 CK-MB (CK-2) 7.0 ng/mL (0.0-4.0) H 03/16/22 18:13 CK-MB (CK-2) Rel Index 1.5 (0-4) 03/16/22 18:13 Troponin T 0.145 ng/mL (0.00-0.029) H* 03/16/22 18:13 Total Protein 7.1 g/dL (6.3-8.2) 03/16/22 18:13 Albumin 3.2 g/dL (3.9-5) L 03/16/22 18:13 Albumin/Globulin Ratio 0.8 % 03/16/22 18:13 Triglycerides 216 mg/dL (2-149) H 03/16/22 18:13 Cholesterol 126 mg/dL (50-199) 03/16/22 18:13 LDL Cholesterol Direct 53 mg/dL (50-130) 03/16/22 18:13 HDL Cholesterol 32 mg/dL (40-59) L 03/16/22 18:13 Cholesterol/HDL Ratio 3.93 % 03/16/22 18:13 Urine Color Yellow (Yellow) 03/16/22 16:49 Urine Turbidity Cloudy (Clear) 03/16/22 16:49 Specific [place] (Man) 1.030 (1.003-1.030) 03/16/22 16:49 Ur Protein (Man) 3+ mg/dL (Negative) 03/16/22 16:49 Ur Ketones (Man) 1+ (Negative) 03/16/22 16:49 Urine Bilirubin (Man) Large (Negative) 03/16/22 16:49 Urine WBC (Auto) 24.0 /HPF (0.0-6.0) H 03/16/22 16:49 Urine RBC (Auto) 14.0 /HPF (0.0-6.0) 03/16/22 16:49 U Epithel Cells (Auto) 16.0 /HPF (0-13.0) H 03/16/22 16:49 Urine Bacteria (Auto) 2+ /HPF (Negative) 03/16/22 16:49 Urine RBC (Manual) 1+ (Negative) 03/16/22 16:49 Calcium Oxalate Crystal 1+ 03/16/22 16:49 Amorphous Crystals 3+ 03/16/22 16:49 Urine Mucus Few /HPF 03/16/22 16:49 Urine Opiates Screen Negative 03/16/22 16:49 Urine Methadone Screen Negative 03/16/22 16:49 Ur Barbiturates Screen Negative 03/16/22 16:49 Ur Phencyclidine Scrn Negative 03/16/22 16:49 Ur Amphetamines Screen Negative 03/16/22 16:49 U Benzodiazepines Scrn Negative 03/16/22 16:49 Urine Cocaine Screen Negative 03/16/22 16:49 U Marijuana (THC) Screen Negative 03/16/22 16:49 Drugs of Abuse Note Disclamer 03/16/22 16:49 - Imaging and Cardiology CT Scan - head: report reviewed Assessment and Plan VTE prophylaxis?: Chemical Plan of care discussed with patient/family: Yes - Patient Problems (1) Stroke Current Visit: Yes Status: Acute Qualifiers: CVA mechanism: unspecified Qualified Code(s): I63.9 - Cerebral infarction, unspecified Plan to address problem: Admit the patient to the medical telemetry. NPO. Aspirin 325 mg p.o. daily. Lipitor 40 mg p.o. daily. PT OT speech evaluation. MRI of the brain and MRA of the brain and neck with and without contrast. Neurology evaluation. Echocardi ogram (2) Left-sided weakness Current Visit: No Status: Acute Plan to address problem: NPO. Aspirin 325 mg p.o. daily. Lipitor 40 mg p.o. daily. PT OT speech evaluation. MRI of the brain and MRA of the brain and neck with and without contrast. Neurology evaluation. Echocardiogram (3) CHF (congestive heart failure) Current Visit: Yes Status: Acute Plan to address problem: Fluid restriction. Maintain input output. Daily weight. Echocardiogram. Cardiology evaluation (4) Elevated troponin Current Visit: Yes Status: Acute Plan to address problem: Aspirin 325 mg p.o. daily. Lipitor 40 mg p.o. daily. Elevated troponin most likely secondary to CKD. Echocardiogram. Cardiology evaluation (5) Sepsis Current Visit: Yes Status: Acute Qualifiers: Sepsis type: sepsis due to unspecified organism Sepsis acute organ dysfunction status: unspecified Qualified Code(s): A41.9 - Sepsis, unspecified organism Plan to address problem: Cefepime 2 g IV every 8 hours. We do the blood culture urine culture. Recheck CBC in the morning (6) UTI (urinary tract infection) Current Visit: Yes Status: Acute Qualifiers: Urinary tract infection type: site unspecified Hematuria presence: without hematuria Qualified Code(s): N39.0 - Urinary tract infection, site not specified Plan to address problem: Cefepime 2 g IV every 8 hours. We do the blood culture urine culture. Recheck CBC in the morning (7) DVT prophylaxis Current Visit: Yes Status: Acute Plan to address problem: Heparin 5000 units subcu every 12 hours for DVT prophylaxis. Pepcid 20 mg IV every 12 hours for GI prophylaxis. Patient is a full code
[2022-03-16] MEDS ORDERED: SODIUM CHLORIDE 0.45% 1000 ML 1,000 ML IV SCH (23:45)
[2022-03-16] MEDS ORDERED: CEFEPIME/NS 2 GM/100 ML 2 GM/100 ML BAG IV SCH (23:45)
[2022-03-17] MEDS: INSULIN LISPRO 100 UNIT/ML SUB-Q SCH ×4 (01:09→19:14)
[2022-03-17] MEDS: IPRATROPIUM/ALBUTEROL SULFATE 3 ML AMPUL.NEB IH SCH ×2 (02:44→09:45)
--- NOTE | 2022-03-17 08:39 | Electrocardiograph Report ---
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
[2022-03-17] MEDS ORDERED: ASPIRIN 325 MG TAB PO SCH (10:00)
[2022-03-17 11:40] LABS: Hematocrit 28.4 % (30.3-42.9); Hemoglobin 9.1 gm/dl (10.1-14.3); Mean Corpuscular HGB Conc 32 % (30-34); Mean Corpuscular Volume 89 fl (79-97); Platelet Count 243 K/mm3 (140-440); Red Blood Count 3.18 M/mm3 (3.65-5.03); Red Cell Distribution Width 15.3 % (13.2-15.2)
--- NOTE | 2022-03-17 11:49 | Consultation ---
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 History is taken from chart and review of prior records due to patient's aphasia/dysarthria. In the ED, CT head showed multiple prior cerebral infarcts. Lab work showed leukocytosis, UA showed UTI, patient has lactic acidosis, elevated troponin, and elevated creatinine. Of note patient was recently discharged from [facility] 02/13/2022 for acute encephalopathy in which CT head showed late acute/early subacute infarct with minimal hemorrhagic conversion or laminar necrosis. Patient is previously unknown to our practice. Cardiology is consulted for elevated troponin. Past History Past Medical History: diabetes, heart failure, hypertension, seizures, stroke, other (see HPI) Past Surgical History: No surgical history Social history: no significant social history Family history: diabetes, hypertension Medications and Allergies Allergies Allergy/AdvReac Type Severity Reaction Status Date / Time No Known Allergies Allergy Unverified 03/16/22 16:49 Active Meds: Active Medications Acetaminophen (Acetaminophen 325 Mg Tab) 650 mg PO Q4H PRN PRN Reason: Pain MILD(1-3)/Fever >100.5/PINEDA Albuterol (Albuterol 2.5 Mg/3 Ml Nebu) 2.5 mg IH Q3HRT PRN PRN Reason: Shortness Of Breath Albuterol/Ipratropium (Ipratropium/Albuterol Sulfate 3 Ml Ampul.Neb) 1 ampul IH Q6HRT DARIANA Last Admin: 03/17/22 09:45 Dose: 1 ampul Aspirin (Aspirin 325 Mg Tab) 325 mg PO QDAY DARIANA Atorvastatin Calcium (Atorvastatin 40 Mg Tab) 40 mg PO QHS [facility] Dextrose (Dextrose 50% In Water (25gm) 50 Ml Syringe) 0 ml IV Q30MIN PRN; Protocol PRN Reason: Hypoglycemia Famotidine (Famotidine 20 Mg/2 Ml Inj) 20 mg IV QAM DARIANA Heparin Sodium (Porcine) (Heparin 5,000 Unit/1 Ml Vial) 5,000 unit SUB-Q Q12HR DARIANA Cefepime HCl (Cefepime/Ns 1 Gm/100 Ml) 1 gm in 100 mls @ 200 mls/hr IV Q24HR [facility]; Protocol Dextrose (D5w) 1,000 mls @ 75 mls/hr IV DIRECT DARIANA Insulin Human Lispro (Insulin Lispro 100 Unit/Ml) 0 unit SUB-Q Q6HR [facility]; Protocol Last Admin: 03/17/22 06:36 Dose: 2 unit Morphine Sulfate (Morphine 2 Mg/1 Ml Inj) 2 mg IV Q4H PRN PRN Reason: Pain, Moderate (4-6) Morphine Sulfate (Morphine 4 Mg/1 Ml Inj) 4 mg IV Q4H PRN PRN Reason: Pain , Severe (7-10) Ondansetron HCl (Ondansetron 4 Mg/2 Ml Inj) 4 mg IV Q8H PRN PRN Reason: Nausea And Vomiting Sodium Chloride (Sodium Chloride 0.9% 10 Ml Flush Syringe) 10 ml IV BID DARIANA Sodium Chloride (Sodium Chloride 0.9% 10 Ml Flush Syringe) 10 ml IV PRN PRN PRN Reason: LINE FLUSH Review of Systems ROS unobtainable: due to mental status Physical Examination Vital Signs Pulse Resp BP Pulse Ox 136 H 16 130/91 100 03/16/22 16:46 03/16/22 16:46 03/16/22 16:46 03/16/22 16:46 General appearance: other (Patient is nonverbal) HEENT: Positive: Mucus Membranes Dry Neck: Positive: trachea midline Cardiac: Positive: Reg Rate and Rhythm Lungs: Positive: Decreased Breath Sounds Neuro: Positive: Other (Unable to assess) Abdomen: Positive: Soft Skin: Negative: Rash, Suspicious Lesions, Ulceration Extremities: Absent: edema Results 03/16/22 18:13 03/16/22 18:13 Cardiac Enzymes 03/16/22 Range/Units 18:13 AST 34 (5-40) units/L CK-MB (CK-2) 7.0 H (0.0-4.0) ng/mL Coagulation 03/16/22 Range/Units 18:13 PT 15.2 H (12.2-14.9) Sec. INR 1.08 (0.87-1.13) APTT 31.8 (24.2-36.6) Sec. Lipids 03/16/22 Range/Units 18:13 Triglycerides 216 H (2-149) mg/dL Cholesterol 126 (50-199) mg/dL HDL Cholesterol 32 L (40-59) mg/dL Cholesterol/HDL Ratio 3.93 % CBC 03/16/22 Range/Units 18:13 WBC 22.4 H (4.5-11.0) K/mm3 RBC 4.20 (3.65-5.03) M/mm3 Hgb 11.7 (10.1-14.3) gm/dl Hct 36.8 (30.3-42.9) % Plt Count 271 (140-440) K/mm3 Comprehensive Metabolic Panel 03/16/22 Range/Units 18:13 Sodium 150 H (137-145) mmol/L Potassium 4.2 (3.6-5.0) mmol/L Chloride 111.2 H (98-107) mmol/L Carbon Dioxide 23 (22-30) mmol/L BUN 49 H (7-17) mg/dL Creatinine 2.5 H (0.6-1.2) mg/dL Glucose 162 H (65-100) mg/dL Calcium 9.2 (8.4-10.2) mg/dL AST 34 (5-40) units/L ALT 22 (7-56) units/L Alkaline Phosphatase 130 H (35-129) units/L Total Protein 7.1 (6.3-8.2) g/dL Albumin 3.2 L (3.9-5) g/dL - Imaging and Cardiology Echo: report reviewed EKG: report reviewed, image reviewed EKG interpretations - Telemetry EKG Rhythm: Sinus Tachycardia - EKG Sinus rhythms and dysrhythmias: sinus tachycardia Repolarization changes or abnormalities: nonspecific abnormality, ST segment, and/or T wave Myocardial infarction: inferior [place] (old age inde Assessment and Plan Patient is a 62-year-old female with a reported past medical history of multiple CVAs with left-sided residual weakness, 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 Acute encephalopathy NSTEMI suspect type II Sepsis UTI OSMAN History of CVA-neurology following History of PE/DVT s/p IVC filter Diabetes Hypothyroidism Echo 02/04/2022-?LVEF 60 - 65%. LV systolic function is normal. LV size is normal. LV volume is normal. Normal LV wall thickness. LV wall motion normal. Normal LV diastolic function. RV normal size. RV systolic function is normal. LA normal size. No evidence of PFO by color flow Doppler and agitated saline contrast. Tricuspid aortic valve. Mild aortic valve sclerosis. No aortic regurgitation. No aortic valve stenosis. Mitral valve normal. Aortic root normal. Ascending aorta normal. No pericardial effusion. Plan: EKG shows sinus tach 118 old inferior infarct with nonspecific T abnormalities. No acute ischemic changes Troponin noted to be elevated suspect NSTEMI type II in setting of sepsis, OSMAN, and CVA Furthermore due to patient's mental status recommend conservative management Patient had recent echo at [facility] see echo results above Per review of records patient was discharged on DAPT therapy with aspirin and Plavix x3 weeks and then to be on Plavix indefinitely. However as neurology is following will defer to their recommendation Patient seen in conjunction with Dr. Huerta who agrees with plan of care
--- NOTE | 2022-03-17 11:51 | Progress Note ---
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 Pt also reported to be tachycardia. 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 No other modifying or associated factors reported. CT scan of the head showed 1. Multiple , prior cerebral insults identified, as described above. It would be difficult to evaluate for small areas of ischemia without diffusion imaging by MRI. Please clinically correlate. 2. Subtle area of increased attenuation in the right gangliocapsular region, as described above. Subsequently patient is seen and evaluated by telemetry neurology In the emergency room patient is found to have WBC of 22.4, also patient has UTI. Patient lactic acid is 3.30 and troponin is 0.145. Patient BUN 49 creatinine 2.5 Hospital Course: 03/17: Remains encephalopathic but she is protecting airway. VSS. CVA appears to be chronic based on image findings and clinical history . Presentaiton appears to be driven by UTI and metabolic derrangements. IVF+abx therapy initiated. Patient appears to be from home, [place]. Will go back there when medically stable. Assessment and Plan: #Sepsis #Urinary tract infection #Toxic metabolic encephalopathy - confusion,weakness presentation appears to be largely driven by UTI, CVA ruled out - WBC: 22.4K, LA: 3.3-> 1.9, UA WBC 24. - Ucx, bcx, coronavirus test ordered - IVF: D5W at 75 cc/hr - empiric tx with Cefepime IV #history of CVA - CT imaging negative for acute findings - Neurology does not believe this is an acute cva - PT/OT ordered - Patient at baseline is nonverbal and has some gait instability. 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 #NSTEMI type II - troponin: 0.145 - likely driven by underlying sepsis -cardiology consulted #History of DVT/PE with IVC filter - per conversation with Dr Huerta, patient has a history of DVT/PE with IVC filter placement - anticoagulation is contraindicated in this patient. #Acute kidney injury due to vasomotor nephropathy #Hypernatremia - Na: 150, Cr: 2.5 on admission - likely volume depletion - hydration with hypotonic fluids: D5W ordered - avoid nephrotoxins - trend renal fx on bmp. Discussed case with [place] physician History Interval history: Patient very confused. Protecting airway but not responding to name. Does exhibiting some guarding to painful tactile stimuli. Hospitalist Physical - Physical exam Narrative exam: Physical Exam: VITAL SIGNS: Reviewed. GENERAL: The patient appears normally developed, Vital signs as documented. Not in any distress, confused HEAD: No signs of head trauma. EYES: Pupils are equal. Extraocular motions intact. EARS: Hearing grossly intact. MOUTH: Oropharynx is normal. NECK: No adenopathy, no JVD. CHEST: Chest with clear breath sounds bilaterally. No wheezes, rales, or rhonchi. CARDIAC: Regular rate and rhythm. S1 and S2, without murmurs, gallops, or rubs. VASCULAR: No Edema. Peripheral pulses normal and equal in all extremities. ABDOMEN: Soft, non tender and non distended. No rebound or guarding, and no masses palpated. Bowel Sounds normal. MUSCULOSKELETAL: Good range of motion of all major joints. Extremities without clubbing, cyanosis or edema. NEUROLOGIC EXAM: Confused, oriented x0. PSYCHIATRIC: Unable to assess SKIN: detail exam as documented in skin assessment - Constitutional Vitals: Temp Pulse Resp BP Pulse Ox 98.6 F 92 H 16 144/84 99 03/16/22 22:41 03/17/22 08:20 03/17/22 08:20 03/17/22 08:20 03/17/22 08:20 General appearance: Present: no acute distress, well-nourished HEART Score - HEART Score Troponin: Troponin T 0.145 ng/mL (0.00-0.029) H* 03/16/22 18:13 Results - Labs CBC & Chem 7: 03/16/22 18:13 03/16/22 18:13 Labs: Laboratory Last Values WBC 22.4 K/mm3 (4.5-11.0) H 03/16/22 18:13 RBC 4.20 M/mm3 (3.65-5.03) 03/16/22 18:13 Hgb 11.7 gm/dl (10.1-14.3) 03/16/22 18:13 Hct 36.8 % (30.3-42.9) 03/16/22 18:13 MCV 88 fl (79-97) 03/16/22 18:13 MCH 28 pg (28-32) 03/16/22 18:13 MCHC 32 % (30-34) 03/16/22 18:13 RDW 15.0 % (13.2-15.2) 03/16/22 18:13 Plt Count 271 K/mm3 (140-440) 03/16/22 18:13 Add Manual Diff Complete 03/16/22 18:13 Total Counted 100 03/16/22 18:13 Seg Neuts % (Manual) 90.0 % (40.0-70.0) H 03/16/22 18:13 Band Neutrophils % 0 % 03/16/22 18:13 Lymphocytes % (Manual) 5.0 % (13.4-35.0) L 03/16/22 18:13 Reactive Lymphs % (Man) 0 % 03/16/22 18:13 Monocytes % (Manual) 5.0 % (0.0-7.3) 03/16/22 18:13 Eosinophils % (Manual) 0 % (0.0-4.3) 03/16/22 18:13 Basophils % (Manual) 0 % (0.0-1.8) 03/16/22 18:13 Metamyelocytes % 0 % 03/16/22 18:13 Myelocytes % 0 % 03/16/22 18:13 Promyelocytes % 0 % 03/16/22 18:13 Blast Cells % 0 % 03/16/22 18:13 Nucleated RBC % Not Reportable 03/16/22 18:13 Seg Neutrophils # Man 20.2 K/mm3 (1.8-7.7) H 03/16/22 18:13 Band Neutrophils # 0.0 K/mm3 03/16/22 18:13 Lymphocytes # (Manual) 1.1 K/mm3 (1.2-5.4) L 03/16/22 18:13 Abs React Lymphs (Man) 0.0 K/mm3 03/16/22 18:13 Monocytes # (Manual) 1.1 K/mm3 (0.0-0.8) H 03/16/22 18:13 Eosinophils # (Manual) 0.0 K/mm3 (0.0-0.4) 03/16/22 18:13 Basophils # (Manual) 0.0 K/mm3 (0.0-0.1) 03/16/22 18:13 Metamyelocytes # 0.0 K/mm3 03/16/22 18:13 Myelocytes # 0.0 K/mm3 03/16/22 18:13 Promyelocytes # 0.0 K/mm3 03/16/22 18:13 Blast Cells # 0.0 K/mm3 03/16/22 18:13 WBC Morphology Not Reportable 03/16/22 18:13 Hypersegmented Neuts Not Reportable 03/16/22 18:13 Hyposegmented Neuts Not Reportable 03/16/22 18:13 Hypogranular Neuts Not Reportable 03/16/22 18:13 Smudge Cells Not Reportable 03/16/22 18:13 Toxic Granulation Not Reportable 03/16/22 18:13 Toxic Vacuolation Not Reportable 03/16/22 18:13 Dohle Bodies Not Reportable 03/16/22 18:13 Pelger-Huet Anomaly Not Reportable 03/16/22 18:13 Patsy Rods Not Reportable 03/16/22 18:13 Platelet Estimate Consistent w auto 03/16/22 18:13 Clumped Platelets Not Reportable 03/16/22 18:13 Plt Clumps, EDTA Not Reportable 03/16/22 18:13 Large Platelets Not Reportable 03/16/22 18:13 Giant Platelets Not Reportable 03/16/22 18:13 Platelet Satelliting Not Reportable 03/16/22 18:13 Plt Morphology Comment Not Reportable 03/16/22 18:13 RBC Morphology Not Reportable 03/16/22 18:13 Dimorphic RBCs Not Reportable 03/16/22 18:13 Polychromasia Not Reportable 03/16/22 18:13 Hypochromasia Not Reportable 03/16/22 18:13 Poikilocytosis Not Reportable 03/16/22 18:13 Anisocytosis Not Reportable 03/16/22 18:13 Microcytosis Not Reportable 03/16/22 18:13 Macrocytosis Not Reportable 03/16/22 18:13 Spherocytes Not Reportable 03/16/22 18:13 Pappenheimer Bodies Not Reportable 03/16/22 18:13 Sickle Cells Not Reportable 03/16/22 18:13 Target Cells Not Reportable 03/16/22 18:13 Tear Drop Cells Not Reportable 03/16/22 18:13 Ovalocytes Not Reportable 03/16/22 18:13 Helmet Cells Not Reportable 03/16/22 18:13 [place] Bodies Not Reportable 03/16/22 18:13 Bruni Rings Not Reportable 03/16/22 18:13 Solo Cells Not Reportable 03/16/22 18:13 Bite Cells Not Reportable 03/16/22 18:13 Crenated Cell Not Reportable 03/16/22 18:13 Elliptocytes Not Reportable 03/16/22 18:13 Acanthocytes (Spur) Not Reportable 03/16/22 18:13 Rouleaux Not Reportable 03/16/22 18:13 Hemoglobin C Crystals Not Reportable 03/16/22 18:13 Schistocytes Not Reportable 03/16/22 18:13 Malaria parasites Not Reportable 03/16/22 18:13 Kali Bodies Not Reportable 03/16/22 18:13 Hem Pathologist Commnt No 03/16/22 18:13 PT 15.2 Sec. (12.2-14.9) H 03/16/22 18:13 INR 1.08 (0.87-1.13) 03/16/22 18:13 APTT 31.8 Sec. (24.2-36.6) 03/16/22 18:13 Thrombin Time 22.4 Sec. (15.1-19.6) H 03/16/22 18:13 Sodium 150 mmol/L (137-145) H 03/16/22 18:13 Potassium 4.2 mmol/L (3.6-5.0) 03/16/22 18:13 Chloride 111.2 mmol/L (98-107) H 03/16/22 18:13 Carbon Dioxide 23 mmol/L (22-30) 03/16/22 18:13 Anion Gap 20 mmol/L 03/16/22 18:13 BUN 49 mg/dL (7-17) H 03/16/22 18:13 Creatinine 2.5 mg/dL (0.6-1.2) H 03/16/22 18:13 Estimated GFR 20 ml/min 03/16/22 18:13 BUN/Creatinine Ratio 20 % 03/16/22 18:13 Glucose 162 mg/dL (65-100) H 03/16/22 18:13 POC Glucose 261 mg/dL (70-105) H 03/17/22 01:05 Lactic Acid 1.90 mmol/L (0.7-2.0) 03/16/22 21:38 Calcium 9.2 mg/dL (8.4-10.2) 03/16/22 18:13 Total Bilirubin 0.60 mg/dL (0.1-1.2) 03/16/22 18:13 AST 34 units/L (5-40) 03/16/22 18:13 ALT 22 units/L (7-56) 03/16/22 18:13 Alkaline Phosphatase 130 units/L (35-129) H 03/16/22 18:13 Total Creatine Kinase 454 units/L (30-135) H 03/16/22 18:13 CK-MB (CK-2) 7.0 ng/mL (0.0-4.0) H 03/16/22 18:13 CK-MB (CK-2) Rel Index 1.5 (0-4) 03/16/22 18:13 Troponin T 0.145 ng/mL (0.00-0.029) H* 03/16/22 18:13 Total Protein 7.1 g/dL (6.3-8.2) 03/16/22 18:13 Albumin 3.2 g/dL (3.9-5) L 03/16/22 18:13 Albumin/Globulin Ratio 0.8 % 03/16/22 18:13 Triglycerides 216 mg/dL (2-149) H 03/16/22 18:13 Cholesterol 126 mg/dL (50-199) 03/16/22 18:13 LDL Cholesterol Direct 53 mg/dL (50-130) 03/16/22 18:13 HDL Cholesterol 32 mg/dL (40-59) L 03/16/22 18:13 Cholesterol/HDL Ratio 3.93 % 03/16/22 18:13 Urine Color Yellow (Yellow) 03/16/22 16:49 Urine Turbidity Cloudy (Clear) 03/16/22 16:49 Specific Serafina (Man) 1.030 (1.003-1.030) 03/16/22 16:49 Ur Protein (Man) 3+ mg/dL (Negative) 03/16/22 16:49 Ur Ketones (Man) 1+ (Negative) 03/16/22 16:49 Urine Bilirubin (Man) Large (Negative) 03/16/22 16:49 Urine WBC (Auto) 24.0 /HPF (0.0-6.0) H 03/16/22 16:49 Urine RBC (Auto) 14.0 /HPF (0.0-6.0) 03/16/22 16:49 U Epithel Cells (Auto) 16.0 /HPF (0-13.0) H 03/16/22 16:49 Urine Bacteria (Auto) 2+ /HPF (Negative) 03/16/22 16:49 Urine RBC (Manual) 1+ (Negative) 03/16/22 16:49 Calcium Oxalate Crystal 1+ 03/16/22 16:49 Amorphous Crystals 3+ 03/16/22 16:49 Urine Mucus Few /HPF 03/16/22 16:49 Urine Opiates Screen Negative 03/16/22 16:49 Urine Methadone Screen Negative 03/16/22 16:49 Ur Barbiturates Screen Negative 03/16/22 16:49 Ur Phencyclidine Scrn Negative 03/16/22 16:49 Ur Amphetamines Screen Negative 03/16/22 16:49 U Benzodiazepines Scrn Negative 03/16/22 16:49 Urine Cocaine Screen Negative 03/16/22 16:49 U Marijuana (THC) Screen Negative 03/16/22 16:49 Drugs of Abuse Note Disclamer 03/16/22 16:49 Active Medications - Current Medications Current Medications: Generic Name Dose Route Start Last Admin Trade Name Freq PRN Reason Stop Dose Admin Acetaminophen 650 mg 03/16/22 23:01 Acetaminophen 325 Mg Tab PO Q4H PRN Pain MILD(1-3)/Fever >100.5/PINEDA Albuterol 2.5 mg 03/16/22 23:01 Albuterol 2.5 Mg/3 Ml Nebu IH Q3HRT PRN Shortness Of Breath Albuterol/Ipratropium 1 ampul 03/17/22 02:00 03/17/22 09:45 Ipratropium/Albuterol Sulfate 3 Ml Ampul.Neb IH 1 ampul Q6HRT DARIANA Administration Aspirin 325 mg 03/17/22 10:00 Aspirin 325 Mg Tab PO QDAY [facility] Atorvastatin Calcium 40 mg 03/17/22 22:00 Atorvastatin 40 Mg Tab PO QHS [facility] Dextrose 0 ml 03/16/22 23:01 Dextrose 50% In Water (25gm) 50 Ml Syringe IV Q30MIN PRN Hypoglycemia Protocol Famotidine 20 mg 03/17/22 10:00 Famotidine 20 Mg/2 Ml Inj IV QAM [facility] Heparin Sodium (Porcine) 5,000 unit 03/17/22 10:00 Heparin 5,000 Unit/1 Ml Vial SUB-Q Q12HR [facility] Cefepime HCl 1 gm in 100 mls @ 200 mls/hr 03/17/22 10:00 Cefepime/Ns 1 Gm/100 Ml IV Q24HR [facility] Protocol Dextrose 1,000 mls @ 75 mls/hr 03/17/22 12:00 D5w IV DIRECT [facility] Insulin Human Lispro 0 unit 03/17/22 00:00 03/17/22 06:36 Insulin Lispro 100 Unit/Ml SUB-Q 2 unit Q6HR [facility] Administration Protocol Morphine Sulfate 2 mg 03/16/22 23:01 Morphine 2 Mg/1 Ml Inj IV Q4H PRN Pain, Moderate (4-6) Morphine Sulfate 4 mg 03/16/22 23:01 Morphine 4 Mg/1 Ml Inj IV Q4H PRN Pain , Severe (7-10) Ondansetron HCl 4 mg 03/16/22 23:01 Ondansetron 4 Mg/2 Ml Inj IV Q8H PRN Nausea And Vomiting Sodium Chloride 10 ml 03/17/22 10:00 Sodium Chloride 0.9% 10 Ml Flush Syringe IV BID [facility] Sodium Chloride 10 ml 03/16/22 23:01 Sodium Chloride 0.9% 10 Ml Flush Syringe IV PRN PRN LINE FLUSH
[2022-03-17 12:02] LABS: Calcium 8.7 mg/dL (8.4-10.2)
[2022-03-17] MEDS: HEPARIN 5,000 UNIT/1 ML VIAL SUB-Q SCH (12:07)
[2022-03-17 12:58] LABS: Basophils % (Manual) 0 % (0.0-1.8); Eosinophils % (Manual) 0 % (0.0-4.3); Total Cells Counted 100
[2022-03-17 12:59] LABS: Anisocytosis 1+; Platelet Estimate Consistent w Auto; Toxic Granulation 1+
[2022-03-17] MEDS: FAMOTIDINE 20 MG/2 ML INJ IV SCH (14:12)
[2022-03-17] MEDS: CEFEPIME/NS 1 GM/100 ML 1 GM/100 ML BAG IV SCH (14:12)
--- NOTE | 2022-03-17 16:16 | Consultation ---
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 Patient notes she's tired and then minimally cooperative with the history and exam. Past History Past Medical History: diabetes, heart failure, hypertension, seizures, stroke, other (see HPI) Past Surgical History: No surgical history Social history: no significant social history Family history: diabetes, hypertension Medications and Allergies Allergies Allergy/AdvReac Type Severity Reaction Status Date / Time No Known Allergies Allergy Unverified 03/16/22 16:49 Active Meds: Active Medications Acetaminophen (Acetaminophen 325 Mg Tab) 650 mg PO Q4H PRN PRN Reason: Pain MILD(1-3)/Fever >100.5/PINEDA Albuterol (Albuterol 2.5 Mg/3 Ml Nebu) 2.5 mg IH Q3HRT PRN PRN Reason: Shortness Of Breath Aspirin (Aspirin 325 Mg Tab) 325 mg PO QDAY [facility] Last Admin: 03/17/22 14:10 Dose: Not Given Atorvastatin Calcium (Atorvastatin 40 Mg Tab) 40 mg PO QHS DARIANA Dextrose (Dextrose 50% In Water (25gm) 50 Ml Syringe) 0 ml IV Q30MIN PRN; Protocol PRN Reason: Hypoglycemia Famotidine (Famotidine 20 Mg/2 Ml Inj) 20 mg IV QAM [facility] Last Admin: 03/17/22 14:12 Dose: 20 mg Heparin Sodium (Porcine) (Heparin 5,000 Unit/1 Ml Vial) 5,000 unit SUB-Q Q12HR DARIANA Cefepime HCl (Cefepime/Ns 1 Gm/100 Ml) 1 gm in 100 mls @ 200 mls/hr IV Q24HR DARIANA; Protocol Last Admin: 03/17/22 14:12 Dose: 200 mls/hr Dextrose (D5w) 1,000 mls @ 75 mls/hr IV DIRECT DARIANA Insulin Human Lispro (Insulin Lispro 100 Unit/Ml) 0 unit SUB-Q Q6HR DARIANA; Protocol Last Admin: 03/17/22 14:07 Dose: Not Given Morphine Sulfate (Morphine 2 Mg/1 Ml Inj) 2 mg IV Q4H PRN PRN Reason: Pain, Moderate (4-6) Morphine Sulfate (Morphine 4 Mg/1 Ml Inj) 4 mg IV Q4H PRN PRN Reason: Pain , Severe (7-10) Ondansetron HCl (Ondansetron 4 Mg/2 Ml Inj) 4 mg IV Q8H PRN PRN Reason: Nausea And Vomiting Sodium Chloride (Sodium Chloride 0.9% 10 Ml Flush Syringe) 10 ml IV BID DARIANA Last Admin: 03/17/22 14:08 Dose: 10 ml Sodium Chloride (Sodium Chloride 0.9% 10 Ml Flush Syringe) 10 ml IV PRN PRN PRN Reason: LINE FLUSH Review of Systems ROS unobtainable: due to mental status Physical Examination - Vital Signs Vital Signs: Vital Signs Pulse Resp BP Pulse Ox 136 H 16 130/91 100 03/16/22 16:46 03/16/22 16:46 03/16/22 16:46 03/16/22 16:46 - Physical Exam Narrative exam: Gen: nad, well-nourished; Head: normocephalic; Eyes: no gaze deviation; no ptosis; ENT: normal vocalization; CVS: warm and well-perfused; Pulm: no respiratory distress; GI: appears non-distended; Ext: no cyanosis appreciated at distal extremities; Skin: no acute rash at distal extremities; Heme: no pathologic ecchymosis appreciated at distal extremities; Neuro: alert, mixed aphasia (vs intentionally not choosing to communicate), not oriented to name, age, month, year, surroundings, +dysarthria, CN 2, 3 4, 5, 6, 7, 9, 10, 11, 12 - pt refuses to cooperate; Motor - at least 2/5 at rue; at l east 1/5 at lue and bilatearl lower exts (pt is nto cooperative); Sensory - pt notes pain with passive movement of left arm/bilateral legs; Cerebellar - pt is not cooperative, Gait - deferred secondary to fall risk; NIHSS (pt refuses to cooperate with NIHSS) Results - Laboratory Findings CBC and BMP: 03/17/22 10:35 03/17/22 10:35 Abnormal Lab Findings: Abnormal Labs 03/16/22 03/16/22 03/16/22 16:35 16:49 18:13 WBC 22.4 H RBC Hgb Hct RDW Seg Neuts % (Manual) 90.0 H Lymphocytes % (Manual) 5.0 L Seg Neutrophils # Man 20.2 H Lymphocytes # (Manual) 1.1 L Monocytes # (Manual) 1.1 H PT Thrombin Time Sodium Chloride BUN Creatinine Glucose POC Glucose 162 H Lactic Acid Alkaline Phosphatase Total Creatine Kinase CK-MB (CK-2) Troponin T Albumin Triglycerides HDL Cholesterol Urine WBC (Auto) 24.0 H U Epithel Cells (Auto) 16.0 H 03/16/22 03/16/22 03/16/22 18:13 18:13 19:16 WBC RBC Hgb Hct RDW Seg Neuts % (Manual) Lymphocytes % (Manual) Seg Neutrophils # Man Lymphocytes # (Manual) Monocytes # (Manual) PT 15.2 H Thrombin Time 22.4 H Sodium 150 H Chloride 111.2 H BUN 49 H Creatinine 2.5 H Glucose 162 H POC Glucose Lactic Acid 3.30 H* Alkaline Phosphatase 130 H Total Creatine Kinase 454 H CK-MB (CK-2) 7.0 H Troponin T 0.145 H* Albumin 3.2 L Triglycerides 216 H HDL Cholesterol 32 L Urine WBC (Auto) U Epithel Cells (Auto) 03/17/22 03/17/22 03/17/22 01:05 10:35 10:35 WBC 29.3 H RBC 3.18 L Hgb 9.1 L Hct 28.4 L D RDW 15.3 H Seg Neuts % (Manual) 90.0 H Lymphocytes % (Manual) 7.0 L Seg Neutrophils # Man 26.4 H Lymphocytes # (Manual) Monocytes # (Manual) 0.9 H PT Thrombin Time Sodium 158 H D Chloride 117.3 H BUN 53 H Creatinine 2.5 H Glucose 150 H POC Glucose 261 H Lactic Acid Alkaline Phosphatase Total Creatine Kinase CK-MB (CK-2) Troponin T Albumin Triglycerides HDL Cholesterol Urine WBC (Auto) U Epithel Cells (Auto) Assessment and Plan 62 yo female with htn, dm, multiple cva w/ residual aphasia and left-sided weak ness, seizure d/o, who presents with noted worsening of her left-sided weakness with noted leukocytosis of 22.4 with a uti and noted troponinemia w/ acute kidney injury. Patient notes she's tired and then minimally cooperative with the history and exam. 1. Acute Ischemic Stroke (due to extension vs. recrudescence) - continue antiplatelet/statin therapy; mri brain wo contrast and further workup based on imaging findings (such as stroke labs, tte); pt/ot/st/swallow evaluation/monitoring. 2. Hypertension - goal SBP 160-200 mmHg and DBP 80-100 mmHg for 24 hours only. 3. Diabetes Mellitus - maintain euglycemia. 4. Hyperlipidemia - goal LDL of 70 w/ statin therapy if no contraindications. 5. Dysarthria / Dysphagia - st / swallow evaluation/monitoring. 6. Left-sided weakness - pt/ot evaluation/monitoring. 7. Unsteady Gait - pt/ot evaluation/monitoring. 8. Seizure d/o - continue home regimen w/ seizure precautions/restrictions. 9. UTI w/ jelly w/ leukocytosis - aggressive treatment per primary team. 10. Aspiration / Fall / Seizure precautions. Jake Turner MD Neurology [id number]
[2022-03-18] MEDS: HEPARIN 5,000 UNIT/1 ML VIAL SUB-Q SCH (00:09)
[2022-03-18] MEDS: INSULIN LISPRO 100 UNIT/ML SUB-Q SCH ×4 (00:30→17:24)
[2022-03-18] MEDS: DEXTROSE 5% IN WATER 1,000 ML IV SCH ×2 (03:40→18:40)
[2022-03-18] MEDS ORDERED: CLOPIDOGREL 75 MG TAB PO SCH (10:00)
[2022-03-18] MEDS ORDERED: ASPIRIN 81 MG TAB CHEW PO SCH (10:00)
[2022-03-18] MEDS: CEFEPIME/NS 1 GM/100 ML 1 GM/100 ML BAG IV SCH (10:06)
[2022-03-18] MEDS: FAMOTIDINE 20 MG/2 ML INJ IV SCH (10:07)
--- NOTE | 2022-03-18 11:52 | Progress Note ---
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 Pt also reported to be tachycardia. 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 No other modifying or associated factors reported. CT scan of the head showed 1. Multiple , prior cerebral insults identified, as described above. It would be difficult to evaluate for small areas of ischemia without diffusion imaging by MRI. Please clinically correlate. 2. Subtle area of increased attenuation in the right gangliocapsular region, as described above. Subsequently patient is seen and evaluated by telemetry neurology In the emergency room patient is found to have WBC of 22.4, also patient has UTI. Patient lactic acid is 3.30 and troponin is 0.145. Patient BUN 49 creatinine 2.5 Hospital Course: 03/17: Remains encephalopathic but she is protecting airway. VSS. CVA appears to be chronic based on image findings and clinical history . Presentaiton appears to be driven by UTI and metabolic derrangements. IVF+abx therapy initiated. Patient appears to be from home, [place]. Will go back there when medically stable. 03/18: Follows yes/no commands, nonverbal at baseline. daughter at bedside during encounter. Stated mother has not been having sufficient oral intake despite being clear for puree diet. ST eval currently pending. Consult to GI for PEG. MRI/BLANCA pending work up for CVA however still have low suspicion for new CVA. Sepsis/UTI/encephalopathy improved with IVF/Abx. Will follow neuro recs re: Antiplatelet strategy. Patient has a history of hemorrhagic cva in November 2021 per daughter and they were at the time told that the patient should not be on Aspirin. however, records from [facility] admission in January 2022 seem to indicate that she was placed on plavix at the time of d/c. ASA and plavix on hold at this time pending neurology recommendation. Assessment and Plan: #Sepsis #Urinary tract infection #Toxic metabolic encephalopathy - confusion,weakness presentation appears to be largely driven by UTI, CVA ruled out - WBC: 22.4K, LA: 3.3-> 1.9, UA WBC 24. - Ucx, bcx, coronavirus test ordered - IVF: D5W at 75 cc/hr - empiric tx with Cefepime IV #history of CVA - history of CVA x 4 in past. Most recent was hemorrhagic cva in November 2021 and is chemic cva in January 2022. - CT imaging negative for acute findings - [facility] does not believe this is an acute cva - PT/OT ordered - Patient at baseline is nonverbal and has some gait instability. 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 - TTE pending - MRI brain pending - will follow tele neuro recommendation. #NSTEMI type II - troponin: 0.145 - likely driven by underlying sepsis -cardiology consulted #History of DVT/PE with IVC filter - per conversation with Dr Huerta, patient has a history of DVT/PE with IVC filter placement - anticoagulation is contraindicated in this patient. #Acute kidney injury due to vasomotor nephropathy #Hypernatremia - Na: 150, Cr: 2.5 on admission - likely volume depletion - hydration with hypotonic fluids: D5W ordered - avoid nephrotoxins - trend renal fx on bmp. History Interval history: NO acute issues. patient appears to be back at baseline per conversation with daughter at bedside. Hospitalist Physical - Physical exam Narrative exam: Physical Exam: VITAL SIGNS: Reviewed. GENERAL: The patient appears normally developed, Vital signs as documented. Not in any distress, confused HEAD: No signs of head trauma. EYES: Pupils are equal. Extraocular motions intact. EARS: Hearing grossly intact. MOUTH: Oropharynx is normal. NECK: No adenopathy, no JVD. CHEST: Chest with clear breath sounds bilaterally. No wheezes, rales, or rhonchi. CARDIAC: Regular rate and rhythm. S1 and S2, without murmurs, gallops, or rubs. VASCULAR: No Edema. Peripheral pulses normal and equal in all extremities. ABDOMEN: Soft, non tender and non distended. No rebound or guarding, and no masses palpated. Bowel Sounds normal. MUSCULOSKELETAL: Good range of motion of all major joints. Extremities without clubbing, cyanosis or edema. NEUROLOGIC EXAM: Confused, oriented x0. PSYCHIATRIC: Unable to assess SKIN: detail exam as documented in skin assessment - Constitutional Vitals: Temp Pulse Resp BP Pulse Ox 97.2 F L 89 16 141/80 100 03/18/22 11:03 03/18/22 08:14 03/18/22 11:03 03/18/22 11:03 03/18/22 10:00 General appearance: Present: no acute distress, well-nourished HEART Score - HEART Score Troponin: Troponin T 0.145 ng/mL (0.00-0.029) H* 03/16/22 18:13 Results - Labs CBC & Chem 7: 03/17/22 10:35 03/17/22 10:35 Labs: Laboratory Last Values WBC 29.3 K/mm3 (4.5-11.0) H 03/17/22 10:35 RBC 3.18 M/mm3 (3.65-5.03) L 03/17/22 10:35 Hgb 9.1 gm/dl (10.1-14.3) L 03/17/22 10:35 Hct 28.4 % (30.3-42.9) L D 03/17/22 10:35 MCV 89 fl (79-97) 03/17/22 10:35 MCH 29 pg (28-32) 03/17/22 10:35 MCHC 32 % (30-34) 03/17/22 10:35 RDW 15.3 % (13.2-15.2) H 03/17/22 10:35 Plt Count 243 K/mm3 (140-440) 03/17/22 10:35 Add Manual Diff Complete 03/17/22 10:35 Total Counted 100 03/17/22 10:35 Seg Neuts % (Manual) 90.0 % (40.0-70.0) H 03/17/22 10:35 Band Neutrophils % 0 % 03/17/22 10:35 Lymphocytes % (Manual) 7.0 % (13.4-35.0) L 03/17/22 10:35 Reactive Lymphs % (Man) 0 % 03/17/22 10:35 Monocytes % (Manual) 3.0 % (0.0-7.3) 03/17/22 10:35 Eosinophils % (Manual) 0 % (0.0-4.3) 03/17/22 10:35 Basophils % (Manual) 0 % (0.0-1.8) 03/17/22 10:35 Metamyelocytes % 0 % 03/17/22 10:35 Myelocytes % 0 % 03/17/22 10:35 Promyelocytes % 0 % 03/17/22 10:35 Blast Cells % 0 % 03/17/22 10:35 Nucleated RBC % Not Reportable 03/17/22 10:35 Seg Neutrophils # Man 26.4 K/mm3 (1.8-7.7) H 03/17/22 10:35 Band Neutrophils # 0.0 K/mm3 03/17/22 10:35 Lymphocytes # (Manual) 2.1 K/mm3 (1.2-5.4) 03/17/22 10:35 Abs React Lymphs (Man) 0.0 K/mm3 03/17/22 10:35 Monocytes # (Manual) 0.9 K/mm3 (0.0-0.8) H 03/17/22 10:35 Eosinophils # (Manual) 0.0 K/mm3 (0.0-0.4) 03/17/22 10:35 Basophils # (Manual) 0.0 K/mm3 (0.0-0.1) 03/17/22 10:35 Metamyelocytes # 0.0 K/mm3 03/17/22 10:35 Myelocytes # 0.0 K/mm3 03/17/22 10:35 Promyelocytes # 0.0 K/mm3 03/17/22 10:35 Blast Cells # 0.0 K/mm3 03/17/22 10:35 WBC Morphology Not Reportable 03/17/22 10:35 Hypersegmented Neuts Not Reportable 03/17/22 10:35 Hyposegmented Neuts Not Reportable 03/17/22 10:35 Hypogranular Neuts Not Reportable 03/17/22 10:35 Smudge Cells Not Reportable 03/17/22 10:35 Toxic Granulation 1+ 03/17/22 10:35 Toxic Vacuolation Not Reportable 03/17/22 10:35 Dohle Bodies Not Reportable 03/17/22 10:35 Pelger-Huet Anomaly Not Reportable 03/17/22 10:35 Patsy Rods Not Reportable 03/17/22 10:35 Platelet Estimate Consistent w auto 03/17/22 10:35 Clumped Platelets Not Reportable 03/17/22 10:35 Plt Clumps, EDTA Not Reportable 03/17/22 10:35 Large Platelets Not Reportable 03/17/22 10:35 Giant Platelets Not Reportable 03/17/22 10:35 Platelet Satelliting Not Reportable 03/17/22 10:35 Plt Morphology Comment Not Reportable 03/17/22 10:35 RBC Morphology Not Reportable 03/17/22 10:35 Dimorphic RBCs Not Reportable 03/17/22 10:35 Polychromasia Not Reportable 03/17/22 10:35 Hypochromasia Not Reportable 03/17/22 10:35 Poikilocytosis Not Reportable 03/17/22 10:35 Anisocytosis 1+ 03/17/22 10:35 Microcytosis Not Reportable 03/17/22 10:35 Macrocytosis Not Reportable 03/17/22 10:35 Spherocytes Not Reportable 03/17/22 10:35 Pappenheimer Bodies Not Reportable 03/17/22 10:35 Sickle Cells Not Reportable 03/17/22 10:35 Target Cells Not Reportable 03/17/22 10:35 Tear Drop Cells Not Reportable 03/17/22 10:35 Ovalocytes Not Reportable 03/17/22 10:35 Helmet Cells Not Reportable 03/17/22 10:35 [place]-Pixley Bodies Not Reportable 03/17/22 10:35 [place] Rings Not Reportable 03/17/22 10:35 [place] Cells Not Reportable 03/17/22 10:35 Bite Cells Not Reportable 03/17/22 10:35 Crenated Cell Not Reportable 03/17/22 10:35 Elliptocytes Not Reportable 03/17/22 10:35 Acanthocytes (Spur) Not Reportable 03/17/22 10:35 Rouleaux Not Reportable 03/17/22 10:35 Hemoglobin C Crystals Not Reportable 03/17/22 10:35 Schistocytes Not Reportable 03/17/22 10:35 Malaria parasites Not Reportable 03/17/22 10:35 Kali Bodies Not Reportable 03/17/22 10:35 Hem Pathologist Commnt No 03/17/22 10:35 PT 15.2 Sec. (12.2-14.9) H 03/16/22 18:13 INR 1.08 (0.87-1.13) 03/16/22 18:13 APTT 31.8 Sec. (24.2-36.6) 03/16/22 18:13 Thrombin Time 22.4 Sec. (15.1-19.6) H 03/16/22 18:13 Sodium 158 mmol/L (137-145) H D 03/17/22 10:35 Potassium 4.0 mmol/L (3.6-5.0) 03/17/22 10:35 Chloride 117.3 mmol/L (98-107) H 03/17/22 10:35 Carbon Dioxide 22 mmol/L (22-30) 03/17/22 10:35 Anion Gap 23 mmol/L 03/17/22 10:35 BUN 53 mg/dL (7-17) H 03/17/22 10:35 Creatinine 2.5 mg/dL (0.6-1.2) H 03/17/22 10:35 Estimated GFR 20 ml/min 03/17/22 10:35 BUN/Creatinine Ratio 21 % 03/17/22 10:35 Glucose 150 mg/dL (65-100) H 03/17/22 10:35 POC Glucose 249 mg/dL (70-105) H 03/18/22 05:58 Lactic Acid 1.90 mmol/L (0.7-2.0) 03/16/22 21:38 Calcium 8.7 mg/dL (8.4-10.2) 03/17/22 10:35 Total Bilirubin 0.60 mg/dL (0.1-1.2) 03/16/22 18:13 AST 34 units/L (5-40) 03/16/22 18:13 ALT 22 units/L (7-56) 03/16/22 18:13 Alkaline Phosphatase 130 units/L (35-129) H 03/16/22 18:13 Total Creatine Kinase 454 units/L (30-135) H 03/16/22 18:13 CK-MB (CK-2) 7.0 ng/mL (0.0-4.0) H 03/16/22 18:13 CK-MB (CK-2) Rel Index 1.5 (0-4) 03/16/22 18:13 Troponin T 0.145 ng/mL (0.00-0.029) H* 03/16/22 18:13 Total Protein 7.1 g/dL (6.3-8.2) 03/16/22 18:13 Albumin 3.2 g/dL (3.9-5) L 03/16/22 18:13 Albumin/Globulin Ratio 0.8 % 03/16/22 18:13 Triglycerides 216 mg/dL (2-149) H 03/16/22 18:13 Cholesterol 126 mg/dL (50-199) 03/16/22 18:13 LDL Cholesterol Direct 53 mg/dL (50-130) 03/16/22 18:13 HDL Cholesterol 32 mg/dL (40-59) L 03/16/22 18:13 Cholesterol/HDL Ratio 3.93 % 03/16/22 18:13 Urine Color Yellow (Yellow) 03/16/22 16:49 Urine Turbidity Cloudy (Clear) 03/16/22 16:49 Specific [place] (Man) 1.030 (1.003-1.030) 03/16/22 16:49 Ur Protein (Man) 3+ mg/dL (Negative) 03/16/22 16:49 Ur Ketones (Man) 1+ (Negative) 03/16/22 16:49 Urine Bilirubin (Man) Large (Negative) 03/16/22 16:49 Urine WBC (Auto) 24.0 /HPF (0.0-6.0) H 03/16/22 16:49 Urine RBC (Auto) 14.0 /HPF (0.0-6.0) 03/16/22 16:49 U Epithel Cells (Auto) 16.0 /HPF (0-13.0) H 03/16/22 16:49 Urine Bacteria (Auto) 2+ /HPF (Negative) 03/16/22 16:49 Urine RBC (Manual) 1+ (Negative) 03/16/22 16:49 Calcium Oxalate Crystal 1+ 03/16/22 16:49 Amorphous Crystals 3+ 03/16/22 16:49 Urine Mucus Few /HPF 03/16/22 16:49 Urine Opiates Screen Negative 03/16/22 16:49 Urine Methadone Screen Negative 03/16/22 16:49 Ur Barbiturates Screen Negative 03/16/22 16:49 Ur Phencyclidine Scrn Negative 03/16/22 16:49 Ur Amphetamines Screen Negative 03/16/22 16:49 U Benzodiazepines Scrn Negative 03/16/22 16:49 Urine Cocaine Screen Negative 03/16/22 16:49 U Marijuana (THC) Screen Negative 03/16/22 16:49 Drugs of Abuse Note Disclamer 03/16/22 16:49 Microbiology: Microbiology 03/17/22 10:35 Peripheral/Venous Blood Culture - Preliminary Culture in Progress 03/17/22 10:35 Peripheral/Venous Blood Culture - Preliminary Culture in Progress Hayes/IV: Voiding Method Indwelling Catheter Active Medications - Current Medications Current Medications: Generic Name Dose Route Start Last Admin Trade Name Freq PRN Reason Stop Dose Admin Acetaminophen 650 mg 03/16/22 23:01 Acetaminophen 325 Mg Tab PO Q4H PRN Pain MILD(1-3)/Fever >100.5/PINEDA Albuterol 2.5 mg 03/16/22 23:01 Albuterol 2.5 Mg/3 Ml Nebu IH Q3HRT PRN Shortness Of Breath Atorvastatin Calcium 40 mg 03/17/22 22:00 03/17/22 22:49 Atorvastatin 40 Mg Tab PO Not Given QHS DARIANA Dextrose 0 ml 03/16/22 23:01 Dextrose 50% In Water (25gm) 50 Ml Syringe IV Q30MIN PRN Hypoglycemia Protocol Famotidine 20 mg 03/17/22 10:00 03/18/22 10:07 Famotidine 20 Mg/2 Ml Inj IV 20 mg QAM DARIANA Administration Cefepime HCl 1 gm in 100 mls @ 200 mls/hr 03/17/22 10:00 03/18/22 10:06 Cefepime/Ns 1 Gm/100 Ml IV 200 mls/hr Q24HR DARIANA Administration Protocol Dextrose 1,000 mls @ 75 mls/hr 03/17/22 12:00 03/18/22 03:40 D5w IV 75 mls/hr DIRECT DARIANA Administration Insulin Human Lispro 0 unit 03/17/22 00:00 03/18/22 07:05 Insulin Lispro 100 Unit/Ml SUB-Q 3 unit Q6HR DARIANA Administration Protocol Morphine Sulfate 2 mg 03/16/22 23:01 Morphine 2 Mg/1 Ml Inj IV Q4H PRN Pain, Moderate (4-6) Morphine Sulfate 4 mg 03/16/22 23:01 Morphine 4 Mg/1 Ml Inj IV Q4H PRN Pain , Severe (7-10) Ondansetron HCl 4 mg 03/16/22 23:01 Ondansetron 4 Mg/2 Ml Inj IV Q8H PRN Nausea And Vomiting Sodium Chloride 10 ml 03/17/22 10:00 03/18/22 10:07 Sodium Chloride 0.9% 10 Ml Flush Syringe IV 10 ml BID DARIANA Administration Sodium Chloride 10 ml 03/16/22 23:01 Sodium Chloride 0.9% 10 Ml Flush Syringe IV PRN PRN LINE FLUSH Nutrition/Malnutrition Assess - Dietary Evaluation Nutrition/Malnutrition Findings: Nutrition Notes Start: 03/17/22 12:20 Freq: Status: Active Protocol: Document 03/17/22 12:20 SUDHIR (Rec: 03/17/22 12:34 SUDHIR [id number]) Nutrition Notes Need for Assessment generated from: MD Order,Education Initial or Follow up Brief Note Current Diagnosis Acute Kidney Injury,Diabetes, Hypertension,Stroke Other Pertinent Diagnosis UTI, Metabolic Encephalopathy, Leukocytosis, CHF. Current Diet NPO (since 03/16 17:54). Height 5 ft 5 in Weight 68.946 kg [place] Body Weight (kg) 56.81 BMI 25.2 Weight change and time frame None provided at admission. Weight Status Overweight Subjective/Other Information RD consult for nutrition education assessment. Pt is currently on NPO. Pt is on Room Air, O2 saturation @ 98%, according to Physical Assessment History notes. Pt failed bedside swallow assessment, according to Swallow Screen notes. I strongly recommend NUCLEAR OPERATIONS SPECIALIST evaluation/recommendations before proceding to feed Pt. Pt needs total assistance with ADL activities, not a candidate for Nutrition Education. Percent of energy/protein needs met: Pt is currently on NPO. Nutrition Intervention Follow-Up By: 03/19/22 Additional Comments NUCLEAR OPERATIONS SPECIALIST Recommendations. When pertinent, start monitoring food tolerance, %PO intake of meals, dietary supplements, and BM.
--- NOTE | 2022-03-18 12:28 | Progress Note ---
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 Acute encephalopathy NSTEMI suspect type II Sepsis UTI OSMAN History of CVA-neurology following History of PE/DVT s/p IVC filter Diabetes Hypothyroidism Echo 02/04/2022-?LVEF 60 - 65%. LV systolic function is normal. LV size is normal. LV volume is normal. Normal LV wall thickness. LV wall motion normal. Normal LV diastolic function. RV normal size. RV systolic function is normal. LA normal size. No evidence of PFO by color flow Doppler and agitated saline contrast. Tricuspid aortic valve. Mild aortic valve sclerosis. No aortic regurgitation. No aortic valve stenosis. Mitral valve normal. Aortic root normal. Ascending aorta normal. No pericardial effusion. Plan: Troponin noted to be elevated suspect NSTEMI type II in setting of sepsis, OSMAN, and CVA Furthermore due to patient's mental status recommend conservative management Per review of records patient was discharged on DAPT therapy with aspirin and Plavix x3 weeks and then to be on Plavix indefinitely. However as neurology is following will defer to their recommendation Patient's daughter reports patient having poor oral intake. Patient may need PEG placement, will defer to primary team Cardiac status otherwise stable. We will see as needed Patient seen in conjunction with Dr. Huerta who agrees with plan of care - Patient Problems (1) Type 2 myocardial infarction Current Visit: Yes Status: Acute (2) Sepsis Current Visit: Yes Status: Acute Qualifiers: Sepsis type: sepsis due to unspecified organism Sepsis acute organ dysfunction status: unspecified Qualified Code(s): A41.9 - Sepsis, unspecified organism (3) Stroke Current Visit: Yes Status: Acute Qualifiers: CVA mechanism: unspecified Qualified Code(s): I63.9 - Cerebral infarction, unspecified (4) UTI (urinary tract infection) Current Visit: Yes Status: Acute Qualifiers: Urinary tract infection type: site unspecified Hematuria presence: without hematuria Qualified Code(s): N39.0 - Urinary tract infection, site not specified Subjective Date of service: 03/18/22 Principal diagnosis: AMS/CVA/Sepsis Interval history: Patient transferred to telemetry. Patient remains nonverbal however patient daughter at bedside Sinus 80s on monitor with no event Objective Vital Signs Temp Pulse Resp BP BP Pulse Ox 03/18/22 11:03 97.2 F L 16 141/80 03/18/22 10:00 100 03/18/22 08:14 89 97 03/18/22 08:10 97.1 F L 89 16 145/92 100 03/18/22 07:00 84 03/18/22 04:21 97.3 F L 91 H 20 163/87 97 03/18/22 00:27 97.4 F L 88 18 145/76 95 03/17/22 23:50 99 03/17/22 23:30 95 H 16 129/86 99 03/17/22 23:20 94 H 18 129/86 98 03/17/22 23:10 97 H 18 129/86 98 03/17/22 23:00 97 H 18 129/86 98 03/17/22 22:50 96 H 17 129/86 98 03/17/22 22:48 98 H 17 129/86 99 03/17/22 22:40 100 H 17 126/56 99 03/17/22 22:30 96 H 16 128/78 98 03/17/22 22:20 98 H 18 128/78 99 03/17/22 22:10 94 H 17 128/78 98 03/17/22 22:00 93 H 16 126/56 98 03/17/22 21:50 98 H 18 126/56 98 03/17/22 21:40 96 H 17 128/78 98 03/17/22 21:30 95 H 18 128/78 98 03/17/22 21:20 95 H 18 128/78 99 03/17/22 21:10 95 H 17 128/78 98 03/17/22 21:00 97 H 22 128/78 99 03/17/22 20:50 97 H 18 128/78 99 03/17/22 20:40 94 H 16 121/72 98 03/17/22 20:30 92 H 17 121/72 98 03/17/22 20:20 94 H 19 121/72 99 03/17/22 20:10 93 H 18 121/72 99 03/17/22 20:00 94 H 16 121/72 99 03/17/22 19:50 94 H 19 121/72 98 03/17/22 19:40 92 H 16 125/53 99 03/17/22 19:30 92 H 17 125/53 99 03/17/22 19:20 93 H 18 125/53 98 03/17/22 19:10 92 H 17 125/53 99 03/17/22 19:00 92 H 17 125/53 99 03/17/22 18:50 93 H 17 125/53 99 03/17/22 18:40 92 H 19 103/51 99 03/17/22 18:30 93 H 17 103/51 98 03/17/22 18:00 93 H 19 103/51 98 03/17/22 17:30 93 H 16 120/71 98 03/17/22 17:00 18 125/75 99 03/17/22 16:30 18 120/71 99 03/17/22 16:00 15 120/71 99 03/17/22 15:30 14 120/59 99 03/17/22 15:00 18 120/59 99 03/17/22 14:30 18 141/76 99 03/17/22 14:12 98 H 16 140/76 99 03/17/22 14:00 16 141/76 99 03/17/22 13:54 97 03/17/22 13:30 17 131/71 98 03/17/22 13:00 17 131/71 98 03/17/22 12:30 18 149/78 99 - Physical Examination General: No Apparent Distress HEENT: Positive: Mucus Membranes Dry Neck: Positive: trachea midline Cardiac: Positive: Reg Rate and Rhythm Lungs: Positive: Normal Breath Sounds Neuro: Positive: Other (Unable to assess) Abdomen: Positive: Soft Skin: Negative: Rash, Suspicious Lesions, Ulceration Extremities: Absent: edema - Imaging and Cardiology EKG: report reviewed, image reviewed Echo: report reviewed - Telemetry EKG Rhythm: Sinus Rhythm - EKG Sinus rhythms and dysrhythmias: sinus tachycardia Repolarization changes or abnormalities: nonspecific abnormality, ST segment, and/or T wave Myocardial infarction: inferior AL (old age inde
--- NOTE | 2022-03-18 14:22 | Magnetic Resonance Report ---
MR brain wo con INDICATION / CLINICAL INFORMATION: acute ischemic stroke. TECHNIQUE: Multiplanar, multisequence MR images of the brain were obtained. COMPARISON: CT head 03/16/2022 FINDINGS: INTRACRANIAL: There is a subacute right basal ganglia hemorrhage which is centered in the right putam en and right external capsule. No restricted diffusion to suggest acute infarction. Remote right jarred etal infarction. Confluent periventricular and centrum semiovale T2 white matter hyperintensities mos t consistent with severe sequela of chronic microvascular disease. Wallerian degeneration in the brai nstem. Ventricular caliber is normal. No extra-axial collection. No mass. No herniation. Major intra cranial vascular flow voids are preserved. ORBITS: No significant abnormality of visualized orbits. SINUSES / MASTOIDS: No significant abnormality of visualized sinuses and mastoid air cells. ADDITIONAL FINDINGS: None. IMPRESSION: 1. Subacute right basal ganglia hemorrhage. 2. Severe sequela of chronic microvascular disease. 3. Remote right MCA distribution infarction. Signer Name: Avery Crawford MD Signed: 03/18/2022 2:18 PM Workstation Name: [id number]
--- NOTE | 2022-03-18 15:56 | XRay Report ---
ABDOMEN 1 VIEW(S) INDICATION / CLINICAL INFORMATION: Dobbhoff Placement. COMPARISON: None available. FINDINGS: TUBES / LINES: Feeding tube tip at the fundus of the stomach. BOWEL GAS PATTERN: No significant abnormality. ADDITIONAL FINDINGS: IVC filter. Signer Name: Ld Baca MD Signed: 03/18/2022 3:52 PM Workstation Name: [email or web address]
[2022-03-18 16:25] LABS: Hematocrit 30.3 % (30.3-42.9); Hemoglobin 9.6 gm/dl (10.1-14.3); Mean Corpuscular HGB Conc 32 % (30-34); Mean Corpuscular Volume 88 fl (79-97); Platelet Count 191 K/mm3 (140-440); Red Blood Count 3.44 M/mm3 (3.65-5.03); Red Cell Distribution Width 15.5 % (13.2-15.2)
[2022-03-18 16:56] LABS: Calcium 8.4 mg/dL (8.4-10.2)
[2022-03-18 17:12] LABS: Anisocytosis 1+; Basophils % (Manual) 0 % (0.0-1.8); Eosinophils % (Manual) 0 % (0.0-4.3); Platelet Estimate Consistent w Auto; Total Cells Counted 100
--- NOTE | 2022-03-18 19:30 | Gastroenterology Consultation ---
History of Present Illness - Reason for Consult Consult date: 03/18/22 PEG tube Requesting physician: DOLORES SHARMA - History of Present Illness This is a 62-year-old female with history of uncontrolled hypertension, diabetes, PE DVT status post IVC filter, depression, left-sided weakness admitted to the ED on for worsening left-sided weakness and facial droop. GI consulted for PEG tube placement. Patient was on pured diet at halfway but has not been having adequate p.o. intake for nutrition support. Per patient's daughter patient has significant weight loss recently. No prior history of abdominal surgery except for and hysterectomy. No prior EGD noted. Per daughter last dose of Plavix was on at the halfway. Medication list reviewed. Past History Past Medical History: diabetes, heart failure, hypertension, seizures, stroke, other (see HPI) Past Surgical History: No surgical history Social history: no significant social history Family history: diabetes, hypertension Medications and Allergies Allergies Allergy/AdvReac Type Severity Reaction Status Date / Time No Known Allergies Allergy Unverified 03/16/22 16:49 Home Medications Medication Instructions Recorded Confirmed Last Taken Type Amlodipine Besylate [Norvasc] 5 mg PO DAILY 03/18/22 03/18/22 Unknown History Atorvastatin [Lipitor Tab] 80 mg PO QHS 03/18/22 03/18/22 Unknown History Cholecalciferol Vit D3 [Vitamin D3 1,000 unit PO QDAY 03/18/22 03/18/22 Unknown History 1,000 UNIT TAB] Clopidogrel [Plavix] 75 mg PO QDAY 03/18/22 03/18/22 Unknown History Duloxetine HCl [Drizalma Sprinkle] 30 mg PO BID 03/18/22 03/18/22 Unknown History Levothyroxine [Synthroid] 88 mcg PO QAM 03/18/22 03/18/22 Unknown History Metoprolol Xl [Toprol Xl] 50 mg PO BID 03/18/22 03/18/22 Unknown History levETIRAcetam [Keppra TAB] 750 mg PO BID 03/18/22 03/18/22 Unknown History Active Meds: Active Medications Acetaminophen (Acetaminophen 325 Mg Tab) 650 mg PO Q4H PRN PRN Reason: Pain MILD(1-3)/Fever >100.5/PINEDA Albuterol (Albuterol 2.5 Mg/3 Ml Nebu) 2.5 mg IH Q3HRT PRN PRN Reason: Shortness Of Breath Atorvastatin Calcium (Atorvastatin 40 Mg Tab) 40 mg PO QHS [facility] Last Admin: 03/17/22 22:49 Dose: Not Given Dextrose (Dextrose 50% In Water (25gm) 50 Ml Syringe) 0 ml IV Q30MIN PRN; Protocol PRN Reason: Hypoglycemia Famotidine (Famotidine 20 Mg/2 Ml Inj) 20 mg IV QAM [facility] Last Admin: 03/18/22 10:07 Dose: 20 mg Cefepime HCl (Cefepime/Ns 1 Gm/100 Ml) 1 gm in 100 mls @ 200 mls/hr IV Q24HR [facility]; Protocol Last Admin: 03/18/22 10:06 Dose: 200 mls/hr Dextrose (D5w) 1,000 mls @ 75 mls/hr IV DIRECT DARIANA Last Admin: 03/18/22 18:40 Dose: 75 mls/hr Insulin Human Lispro (Insulin Lispro 100 Unit/Ml) 0 unit SUB-Q Q6HR [facility]; Protocol Last Admin: 03/18/22 17:24 Dose: 3 unit Morphine Sulfate (Morphine 2 Mg/1 Ml Inj) 2 mg IV Q4H PRN PRN Reason: Pain, Moderate (4-6) Morphine Sulfate (Morphine 4 Mg/1 Ml Inj) 4 mg IV Q4H PRN PRN Reason: Pain , Severe (7-10) Ondansetron HCl (Ondansetron 4 Mg/2 Ml Inj) 4 mg IV Q8H PRN PRN Reason: Nausea And Vomiting Sodium Chloride (Sodium Chloride 0.9% 10 Ml Flush Syringe) 10 ml IV BID [facility] Last Admin: 03/18/22 10:07 Dose: 10 ml Sodium Chloride (Sodium Chloride 0.9% 10 Ml Flush Syringe) 10 ml IV PRN PRN PRN Reason: LINE FLUSH Review of Systems - Review of Systems ROS unobtainable: due to mental status Exam - Constitutional Vital Signs: Temp Pulse Resp BP Pulse Ox 98.1 F 89 16 156/89 99 03/18/22 15:33 03/18/22 15:33 03/18/22 15:33 03/18/22 15:33 03/18/22 15:33 General appearance: no acute distress - Neck Neck: supple - Respiratory Respiratory effort: normal - Cardiovascular Rhythm: regular Heart Sounds: Present: S1 & S2 Extremities: No edema - Gastrointestinal General gastrointestinal: Present: soft, non-tender, non-distended - Integumentary Integumentary: Present: clear, warm - Neurologic Neurological: left side weakness - Labs CBC & Chem 7: 03/18/22 16:03 03/18/22 16:03 Lab Results: Laboratory Results - last 24 hr 03/18/22 03/18/22 03/18/22 05:58 09:12 12:15 WBC RBC Hgb Hct MCV MCH MCHC RDW Plt Count Add Manual Diff Total Counted Seg Neutrophils % Seg Neuts % (Manual) Band Neutrophils % Lymphocytes % (Manual) Reactive Lymphs % (Man) Monocytes % (Manual) Eosinophils % (Manual) Basophils % (Manual) Metamyelocytes % Myelocytes % Promyelocytes % Blast Cells % Nucleated RBC % Seg Neutrophils # Man Band Neutrophils # Lymphocytes # (Manual) Abs React Lymphs (Man) Monocytes # (Manual) Eosinophils # (Manual) Basophils # (Manual) Metamyelocytes # Myelocytes # Promyelocytes # Blast Cells # WBC Morphology Hypersegmented Neuts Hyposegmented Neuts Hypogranular Neuts Smudge Cells Toxic Granulation Toxic Vacuolation Dohle Bodies Pelger-Huet Anomaly Patsy Rods Platelet Estimate Clumped Platelets Plt Clumps, EDTA Large Platelets Giant Platelets Platelet Satelliting Plt Morphology Comment RBC Morphology Dimorphic RBCs Polychromasia Hypochromasia Poikilocytosis Anisocytosis Microcytosis Macrocytosis Spherocytes Pappenheimer Bodies Sickle Cells Target Cells Tear Drop Cells Ovalocytes Helmet Cells [place] Bodies Doerun Rings [place] Cells Bite Cells Crenated Cell Elliptocytes Acanthocytes (Spur) Rouleaux Hemoglobin C Crystals Schistocytes Malaria parasites Kali Bodies Hem Pathologist Commnt Sodium Potassium Chloride Carbon Dioxide Anion Gap BUN Creatinine Estimated GFR BUN/Creatinine Ratio Glucose POC Glucose 249 H 278 H 312 H Calcium 03/18/22 03/18/22 03/18/22 16:03 16:03 16:28 WBC 17.8 H RBC 3.44 L Hgb 9.6 L Hct 30.3 MCV 88 MCH 28 MCHC 32 RDW 15.5 H Plt Count 191 Add Manual Diff Complete Total Counted 100 Seg Neutrophils % [employer] Seg Neuts % (Manual) 96.0 H Band Neutrophils % 0 Lymphocytes % (Manual) 3.0 L Reactive Lymphs % (Man) 0 Monocytes % (Manual) 1.0 Eosinophils % (Manual) 0 Basophils % (Manual) 0 Metamyelocytes % 0 Myelocytes % 0 Promyelocytes % 0 Blast Cells % 0 Nucleated RBC % Not Reportable Seg Neutrophils # Man 17.1 H Band Neutrophils # 0.0 Lymphocytes # (Manual) 0.5 L Abs React Lymphs (Man) 0.0 Monocytes # (Manual) 0.2 Eosinophils # (Manual) 0.0 Basophils # (Manual) 0.0 Metamyelocytes # 0.0 Myelocytes # 0.0 Promyelocytes # 0.0 Blast Cells # 0.0 WBC Morphology Not Reportable Hypersegmented Neuts Not Reportable Hyposegmented Neuts Not Reportable Hypogranular Neuts Not Reportable Smudge Cells Not Reportable Toxic Granulation Not Reportable Toxic Vacuolation Not Reportable Dohle Bodies Not Reportable Pelger-Huet Anomaly Not Reportable Patsy Rods Not Reportable Platelet Estimate Consistent w auto Clumped Platelets Not Reportable Plt Clumps, EDTA Not Reportable Large Platelets Not Reportable Giant Platelets Not Reportable Platelet Satelliting Not Reportable Plt Morphology Comment Not Reportable RBC Morphology Not Reportable Dimorphic RBCs Not Reportable Polychromasia Not Reportable Hypochromasia Not Reportable Poikilocytosis Not Reportable Anisocytosis 1+ Microcytosis Not Reportable Macrocytosis Not Reportable Spherocytes Not Reportable Pappenheimer Bodies Not Reportable Sickle Cells Not Reportable Target Cells Not Reportable Tear Drop Cells Not Reportable Ovalocytes Not Reportable Helmet Cells Not Reportable [place] Bodies Not Reportable Doerun Rings Not Reportable [place] Cells Not Reportable Bite Cells Not Reportable Crenated Cell Not Reportable Elliptocytes Not Reportable Acanthocytes (Spur) Not Reportable Rouleaux Not Reportable Hemoglobin C Crystals Not Reportable Schistocytes Not Reportable Malaria parasites Not Reportable Kali Bodies Not Reportable Hem Pathologist Commnt No Sodium 153 H Potassium 3.5 L Chloride 116.7 H Carbon Dioxide 21 L Anion Gap 19 BUN 56 H Creatinine 2.2 H Estimated GFR 23 BUN/Creatinine Ratio 25 Glucose 276 H POC Glucose 241 H Calcium 8.4 Assessment and Plan # Oropharyngeal dysphagia # Malnutrition - multiple CVAs and now with significant weight loss -Discussed PEG tube placement with the daughter who has agreeable with the procedure. She is a manager social and understands the procedure very well. Discussed risks and benefits and the nature of the procedure. Rec - will plan for EGD/PEG on Wednesday. Last dose of plavix on 03/16 per patient's daughter. - recommend tube feeds via dobhoff in the meantime. - hold anticoagulation.
[2022-03-19] MEDS: INSULIN LISPRO 100 UNIT/ML SUB-Q SCH ×4 (00:44→17:44)
--- NOTE | 2022-03-19 08:40 | Progress Note ---
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 Pt also reported to be tachycardia. 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 No other modifying or associated factors reported. CT scan of the head showed 1. Multiple , prior cerebral insults identified, as described above. It would be difficult to evaluate for small areas of ischemia without diffusion imaging by MRI. Please clinically correlate. 2. Subtle area of increased attenuation in the right gangliocapsular region, as described above. Subsequently patient is seen and evaluated by telemetry neurology In the emergency room patient is found to have WBC of 22.4, also patient has UTI. Patient lactic acid is 3.30 and troponin is 0.145. Patient BUN 49 creatinine 2.5 Hospital Course: 03/17: Remains encephalopathic but she is protecting airway. VSS. CVA appears to be chronic based on image findings and clinical history . Presentaiton appears to be driven by UTI and metabolic derrangements. IVF+abx therapy initiated. Patient appears to be from home, [place]. Will go back there when medically stable. 03/18: Follows yes/no commands, nonverbal at baseline. daughter at bedside during encounter. Stated mother has not been having sufficient oral intake despite being clear for puree diet. ST eval currently pending. Consult to GI for PEG. MRI/BLANCA pending work up for CVA however still have low suspicion for new CVA. Sepsis/UTI/encephalopathy improved with IVF/Abx. Will follow neuro recs re: Antiplatelet strategy. Patient has a history of hemorrhagic cva in November 2021 per daughter and they were at the time told that the patient should not be on Aspirin. however, records from [facility] admission in January 2022 seem to indicate that she was placed on plavix at the time of d/c. ASA and plavix on hold at this time pending neurology recommendation. 03/19: NGT placed. NPO for now as GI may place PEG today or tomorrow. [facility] Assessment and Plan: #Sepsis #Urinary tract infection #Toxic metabolic encephalopathy - confusion,weakness presentation appears to be largely driven by UTI, CVA ruled out - WBC: 22.4K, LA: 3.3-> 1.9, UA WBC 24. - Ucx, bcx, coronavirus test ordered - IVF: D5W at 75 cc/hr - empiric tx with Cefepime IV #History of CVA - history of CVA x 4 in past. Most recent was hemorrhagic cva in November 2021 and ischemic cva in January 2022. - CT imaging negative for acute findings - [facility] does not believe this is an acute cva - PT/OT ordered - Patient at baseline is nonverbal and has some gait instability. 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 - TTE pending - MRI brain pending - will follow tele neuro recommendation. - speech eval - Patient was cleared after stroke last month for puree diet however caloric intake has been poor per daughter. Will consult GI for PEG. #NSTEMI type II - troponin: 0.145 - likely driven by underlying sepsis -cardiology consulted #History of DVT/PE with IVC filter - per conversation with Dr Huerta, patient has a history of DVT/PE with IVC filter placement - anticoagulation is contraindicated in this patient. #Acute kidney injury due to vasomotor nephropathy #Hypernatremia - Na: 150, Cr: 2.5 on admission - likely volume depletion - hydration with hypotonic fluids: D5W ordered - avoid nephrotoxins - trend renal fx on bmp. History Interval history: No acute complaints on encounter. Patient not in any distress. Hospitalist Physical - Physical exam Narrative exam: Physical Exam: VITAL SIGNS: Reviewed. GENERAL: The patient appears normally developed, Vital signs as documented. Not in any distress, confused HEAD: No signs of head trauma. EYES: Pupils are equal. Extraocular motions intact. EARS: Hearing grossly intact. MOUTH: Oropharynx is normal. NECK: No adenopathy, no JVD. Nose: NG in place. CHEST: Chest with clear breath sounds bilaterally. No wheezes, rales, or rhonchi. CARDIAC: Regular rate and rhythm. S1 and S2, without murmurs, gallops, or rubs. VASCULAR: No Edema. Peripheral pulses normal and equal in all extremities. ABDOMEN: Soft, non tender and non distended. No rebound or guarding, and no masses palpated. Bowel Sounds normal. MUSCULOSKELETAL: Good range of motion of all major joints. Extremities without clubbing, cyanosis or edema. NEUROLOGIC EXAM: Confused, oriented x0. PSYCHIATRIC: Unable to assess SKIN: detail exam as documented in skin assessment - Constitutional Vitals: Temp Pulse Resp BP Pulse Ox 97.2 F L 73 18 156/83 100 03/19/22 08:19 03/19/22 08:19 03/19/22 08:19 03/19/22 08:19 03/19/22 08:19 General appearance: Present: no acute distress, well-nourished HEART Score - HEART Score Troponin: Troponin T 0.145 ng/mL (0.00-0.029) H* 03/16/22 18:13 Results - Labs CBC & Chem 7: 03/18/22 16:03 03/18/22 16:03 Labs: Laboratory Last Values WBC 17.8 K/mm3 (4.5-11.0) H 03/18/22 16:03 RBC 3.44 M/mm3 (3.65-5.03) L 03/18/22 16:03 Hgb 9.6 gm/dl (10.1-14.3) L 03/18/22 16:03 Hct 30.3 % (30.3-42.9) 03/18/22 16:03 MCV 88 fl (79-97) 03/18/22 16:03 MCH 28 pg (28-32) 03/18/22 16:03 MCHC 32 % (30-34) 03/18/22 16:03 RDW 15.5 % (13.2-15.2) H 03/18/22 16:03 Plt Count 191 K/mm3 (140-440) 03/18/22 16:03 Add Manual Diff Complete 03/18/22 16:03 Total Counted 100 03/18/22 16:03 Seg Neutrophils % Front Worker 03/18/22 16:03 Seg Neuts % (Manual) 96.0 % (40.0-70.0) H 03/18/22 16:03 Band Neutrophils % 0 % 03/18/22 16:03 Lymphocytes % (Manual) 3.0 % (13.4-35.0) L 03/18/22 16:03 Reactive Lymphs % (Man) 0 % 03/18/22 16:03 Monocytes % (Manual) 1.0 % (0.0-7.3) 03/18/22 16:03 Eosinophils % (Manual) 0 % (0.0-4.3) 03/18/22 16:03 Basophils % (Manual) 0 % (0.0-1.8) 03/18/22 16:03 Metamyelocytes % 0 % 03/18/22 16:03 Myelocytes % 0 % 03/18/22 16:03 Promyelocytes % 0 % 03/18/22 16:03 Blast Cells % 0 % 03/18/22 16:03 Nucleated RBC % Not Reportable 03/18/22 16:03 Seg Neutrophils # Man 17.1 K/mm3 (1.8-7.7) H 03/18/22 16:03 Band Neutrophils # 0.0 K/mm3 03/18/22 16:03 Lymphocytes # (Manual) 0.5 K/mm3 (1.2-5.4) L 03/18/22 16:03 Abs React Lymphs (Man) 0.0 K/mm3 03/18/22 16:03 Monocytes # (Manual) 0.2 K/mm3 (0.0-0.8) 03/18/22 16:03 Eosinophils # (Manual) 0.0 K/mm3 (0.0-0.4) 03/18/22 16:03 Basophils # (Manual) 0.0 K/mm3 (0.0-0.1) 03/18/22 16:03 Metamyelocytes # 0.0 K/mm3 03/18/22 16:03 Myelocytes # 0.0 K/mm3 03/18/22 16:03 Promyelocytes # 0.0 K/mm3 03/18/22 16:03 Blast Cells # 0.0 K/mm3 03/18/22 16:03 WBC Morphology Not Reportable 03/18/22 16:03 Hypersegmented Neuts Not Reportable 03/18/22 16:03 Hyposegmented Neuts Not Reportable 03/18/22 16:03 Hypogranular Neuts Not Reportable 03/18/22 16:03 Smudge Cells Not Reportable 03/18/22 16:03 Toxic Granulation Not Reportable 03/18/22 16:03 Toxic Vacuolation Not Reportable 03/18/22 16:03 Dohle Bodies Not Reportable 03/18/22 16:03 Pelger-Huet Anomaly Not Reportable 03/18/22 16:03 Patsy Rods Not Reportable 03/18/22 16:03 Platelet Estimate Consistent w auto 03/18/22 16:03 Clumped Platelets Not Reportable 03/18/22 16:03 Plt Clumps, EDTA Not Reportable 03/18/22 16:03 Large Platelets Not Reportable 03/18/22 16:03 Giant Platelets Not Reportable 03/18/22 16:03 Platelet Satelliting Not Reportable 03/18/22 16:03 Plt Morphology Comment Not Reportable 03/18/22 16:03 RBC Morphology Not Reportable 03/18/22 16:03 Dimorphic RBCs Not Reportable 03/18/22 16:03 Polychromasia Not Reportable 03/18/22 16:03 Hypochromasia Not Reportable 03/18/22 16:03 Poikilocytosis Not Reportable 03/18/22 16:03 Anisocytosis 1+ 03/18/22 16:03 Microcytosis Not Reportable 03/18/22 16:03 Macrocytosis Not Reportable 03/18/22 16:03 Spherocytes Not Reportable 03/18/22 16:03 Pappenheimer Bodies Not Reportable 03/18/22 16:03 Sickle Cells Not Reportable 03/18/22 16:03 Target Cells Not Reportable 03/18/22 16:03 Tear Drop Cells Not Reportable 03/18/22 16:03 Ovalocytes Not Reportable 03/18/22 16:03 Helmet Cells Not Reportable 03/18/22 16:03 Webster-B[place]os[place] Bodies Not Reportable 03/18/22 16:03 Parks Rings Not Reportable 03/18/22 16:03 Eliceo Cells Not Reportable 03/18/22 16:03 Bite Cells Not Reportable 03/18/22 16:03 Crenated Cell Not Reportable 03/18/22 16:03 Elliptocytes Not Reportable 03/18/22 16:03 Acanthocytes (Spur) Not Reportable 03/18/22 16:03 Rouleaux Not Reportable 03/18/22 16:03 Hemoglobin C Crystals Not Reportable 03/18/22 16:03 Schistocytes Not Reportable 03/18/22 16:03 Malaria parasites Not Reportable 03/18/22 16:03 Kali Bodies Not Reportable 03/18/22 16:03 Hem Pathologist Commnt No 03/18/22 16:03 PT 15.2 Sec. (12.2-14.9) H 03/16/22 18:13 INR 1.08 (0.87-1.13) 03/16/22 18:13 APTT 31.8 Sec. (24.2-36.6) 03/16/22 18:13 Thrombin Time 22.4 Sec. (15.1-19.6) H 03/16/22 18:13 Sodium 153 mmol/L (137-145) H 03/18/22 16:03 Potassium 3.5 mmol/L (3.6-5.0) L 03/18/22 16:03 Chloride 116.7 mmol/L (98-107) H 03/18/22 16:03 Carbon Dioxide 21 mmol/L (22-30) L 03/18/22 16:03 Anion Gap 19 mmol/L 03/18/22 16:03 BUN 56 mg/dL (7-17) H 03/18/22 16:03 Creatinine 2.2 mg/dL (0.6-1.2) H 03/18/22 16:03 Estimated GFR 23 ml/min 03/18/22 16:03 BUN/Creatinine Ratio 25 % 03/18/22 16:03 Glucose 276 mg/dL (65-100) H 03/18/22 16:03 POC Glucose 241 mg/dL (70-105) H 03/18/22 16:28 Lactic Acid 1.90 mmol/L (0.7-2.0) 03/16/22 21:38 Calcium 8.4 mg/dL (8.4-10.2) 03/18/22 16:03 Total Bilirubin 0.60 mg/dL (0.1-1.2) 03/16/22 18:13 AST 34 units/L (5-40) 03/16/22 18:13 ALT 22 units/L (7-56) 03/16/22 18:13 Alkaline Phosphatase 130 units/L (35-129) H 03/16/22 18:13 Total Creatine Kinase 454 units/L (30-135) H 03/16/22 18:13 CK-MB (CK-2) 7.0 ng/mL (0.0-4.0) H 03/16/22 18:13 CK-MB (CK-2) Rel Index 1.5 (0-4) 03/16/22 18:13 Troponin T 0.145 ng/mL (0.00-0.029) H* 03/16/22 18:13 Total Protein 7.1 g/dL (6.3-8.2) 03/16/22 18:13 Albumin 3.2 g/dL (3.9-5) L 03/16/22 18:13 Albumin/Globulin Ratio 0.8 % 03/16/22 18:13 Triglycerides 216 mg/dL (2-149) H 03/16/22 18:13 Cholesterol 126 mg/dL (50-199) 03/16/22 18:13 LDL Cholesterol Direct 53 mg/dL (50-130) 03/16/22 18:13 HDL Cholesterol 32 mg/dL (40-59) L 03/16/22 18:13 Cholesterol/HDL Ratio 3.93 % 03/16/22 18:13 Urine Color Yellow (Yellow) 03/16/22 16:49 Urine Turbidity Cloudy (Clear) 03/16/22 16:49 Specific [place] (Man) 1.030 (1.003-1.030) 03/16/22 16:49 Ur Protein (Man) 3+ mg/dL (Negative) 03/16/22 16:49 Ur Ketones (Man) 1+ (Negative) 03/16/22 16:49 Urine Bilirubin (Man) Large (Negative) 03/16/22 16:49 Urine WBC (Auto) 24.0 /HPF (0.0-6.0) H 03/16/22 16:49 Urine RBC (Auto) 14.0 /HPF (0.0-6.0) 03/16/22 16:49 U Epithel Cells (Auto) 16.0 /HPF (0-13.0) H 03/16/22 16:49 Urine Bacteria (Auto) 2+ /HPF (Negative) 03/16/22 16:49 Urine RBC (Manual) 1+ (Negative) 03/16/22 16:49 Calcium Oxalate Crystal 1+ 03/16/22 16:49 Amorphous Crystals 3+ 03/16/22 16:49 Urine Mucus Few /HPF 03/16/22 16:49 Urine Opiates Screen Negative 03/16/22 16:49 Urine Methadone Screen Negative 03/16/22 16:49 Ur Barbiturates Screen Negative 03/16/22 16:49 Ur Phencyclidine Scrn Negative 03/16/22 16:49 Ur Amphetamines Screen Negative 03/16/22 16:49 U Benzodiazepines Scrn Negative 03/16/22 16:49 Urine Cocaine Screen Negative 03/16/22 16:49 U Marijuana (THC) Screen Negative 03/16/22 16:49 Drugs of Abuse Note Disclamer 03/16/22 16:49 Microbiology: Microbiology 03/16/22 16:49 Urine,Clean Catch Urine Culture - Preliminary 03/17/22 10:35 Peripheral/Venous Blood Culture - Preliminary NO GROWTH AFTER 24 HOURS 03/17/22 10:35 Peripheral/Venous Blood Culture - Preliminary NO GROWTH AFTER 24 HOURS Hayes/IV: Voiding Method Indwelling Catheter Active Medications - Current Medications Current Medications: Generic Name Dose Route Start Last Admin Trade Name Freq PRN Reason Stop Dose Admin Acetaminophen 650 mg 03/16/22 23:01 Acetaminophen 325 Mg Tab PO Q4H PRN Pain MILD(1-3)/Fever >100.5/PINEDA Albuterol 2.5 mg 03/16/22 23:01 Albuterol 2.5 Mg/3 Ml Nebu IH Q3HRT PRN Shortness Of Breath Atorvastatin Calcium 40 mg 03/17/22 22:00 03/18/22 21:39 Atorvastatin 40 Mg Tab PO 40 mg QHS DARIANA Administration Dextrose 0 ml 03/16/22 23:01 Dextrose 50% In Water (25gm) 50 Ml Syringe IV Q30MIN PRN Hypoglycemia Protocol Famotidine 20 mg 03/17/22 10:00 03/18/22 10:07 Famotidine 20 Mg/2 Ml Inj IV 20 mg QAM DARIANA Administration Cefepime HCl 1 gm in 100 mls @ 200 mls/hr 03/17/22 10:00 03/18/22 10:06 Cefepime/Ns 1 Gm/100 Ml IV 200 mls/hr Q24HR DARIANA Administration Protocol Dextrose 1,000 mls @ 75 mls/hr 03/17/22 12:00 03/18/22 18:40 D5w IV 75 mls/hr DIRECT DARIANA Administration Insulin Human Lispro 0 unit 03/17/22 00:00 03/19/22 06:10 Insulin Lispro 100 Unit/Ml SUB-Q 3 unit Q6HR DARIANA Administration Protocol Morphine Sulfate 2 mg 03/16/22 23:01 Morphine 2 Mg/1 Ml Inj IV Q4H PRN Pain, Moderate (4-6) Morphine Sulfate 4 mg 03/16/22 23:01 Morphine 4 Mg/1 Ml Inj IV Q4H PRN Pain , Severe (7-10) Ondansetron HCl 4 mg 03/16/22 23:01 Ondansetron 4 Mg/2 Ml Inj IV Q8H PRN Nausea And Vomiting Sodium Chloride 10 ml 03/17/22 10:00 03/18/22 21:39 Sodium Chloride 0.9% 10 Ml Flush Syringe IV 10 ml BID DARIANA Administration Sodium Chloride 10 ml 03/16/22 23:01 Sodium Chloride 0.9% 10 Ml Flush Syringe IV PRN PRN LINE FLUSH Nutrition/Malnutrition Assess - Dietary Evaluation Nutrition/Malnutrition Findings: Nutrition Notes Start: 03/17/22 12:20 Freq: Status: Active Protocol: Document 03/18/22 15:57 SUDHIR (Rec: 03/18/22 16:43 SUDHIR [id number]) Nutrition Notes Need for Assessment generated from: blockers skiver,MST Initial or Follow up Assessment Current Diagnosis Acute Kidney Injury,Decubitus( Pressure Ulcer),Diabetes, Sepsis,Hypertension,Stroke Other Pertinent Diagnosis UTI, Metabolic Encephalopathy, Leukocytosis, NSTEMI II, PE/ DVT s/p IVC. Current Diet NPO (since 03/16 17:54). Labs/Tests 03/17: Na 158, Cl 117.3, BUN 53, BUN 2.5, Glu 150. Pertinent Medications 03/18: D5w @ 75ml/hr, Humalog 6U, others nutritionally unremarkable. Height 5 ft 5 in Weight 68.9 kg [place] Body Weight (kg) 56.81 BMI 25.2 Intake Prior to Admission Poor Weight change and time frame Pt states having loss more than 34 lb, unintentionally, recently. 0.049 Kg body weight loss in 1 day reported. Weight Status Overweight Subjective/Other Information RD consult for risk of malnutrition assessment. Pt continues on NPO since admission. I will prepare TF prescription to follow RESEARCH ASSOCIATE recommendations and provide Pt with energy/ protein needs during LOS. Pt is on Room Air, O2 saturation @ 98%, according to Physical Assessment History notes. RESEARCH ASSOCIATE note on 03/18/22 14:05: Evaluation was attempted with the patient's daughter, Katina present. Patient was resistant to po feedings, clenching her mouth tightly. According to the patient's daughter, the patient has lost over 50 pounds as her intake was very poor while residing in the nursing facility. Patient will require an alternative method of nutrition to support her nutritional needs. No further recommendations. - END OF NOTE . Pt has missing teeth, according to Physical Assessment History notes. Pt presents generalized Pitting Edema 1+, according to Physical Assessment History notes. Pt has experienced poor PO intake of meals recently as sign of concern for risk of malnutrition at the time, according to Progress notes. Pt presents a sacral decubitus ulcer stage I as signs of concern for skin risk at the time, according to Physical Assessment History notes and Admission documentes. Percent of energy/protein needs met: Pt is currently on NPO. When pertinent, start with prescribed TF-Nepro w/ CARBSTEADY @ 35 ml/hr provides for energy/protein needs (1, 511 Kcal/68 g) during LOS, 100 % Kcal; 82% AA. Burn Absent Trauma Absent GI Symptoms None Difficulty In Swallowing Food Allergy No Skin Integrity/Comment Sacral decubitus ulcer stage I . Minimum of two criteria Yes Energy Intake (severe) < or equal to 50% Estimated Energy Requirement > or equal to 5 days Interpretation of Weight Loss (severe) >7.5% in 3 months Fluid Accumulation Mild (non-severe) Reduced Licensing Coordinator Strength N/A (non-severe) Protein-Calorie Malnutrition Severe #1 Nutrition Diagnosis Malnutrition Etiology Uncertain. As Evidenced by Signs and Symptoms Pt presents generalized Pitting Edema 1+, according to Physical Assessment History notes. Pt has experienced poor PO intakeof meals recently, and unintentional loss of body weight as signs of concern for risk of malnutrition at the time, according to Progress notes. Is patient on ventilator? No Is Patient Ambulatory and/or Out of Bed No REE-([facility]-confined to bed) 1510.884 Calculation Used for Recommendations [facility] Additional Notes Protein: 0.2-1.5 g/Kg ABW; 83- 104 g/day. Fluids: 1 ml/Kcal, or as per MD. Nutrition Intervention Nutrition Support: When pertinent, procede according to RESEARCH ASSOCIATE recommendations. Start TF-Nepro w/CARBSTEADY @ 35 ml/hr. Flush: 150 ml water Q 4 hr, or as per MD. Kcal 1,511 Protein (gm) 68 Carbohydrates (gm) 135 Fat (gm) 81 Fluid (mL) 610 Fiber (gm) 11 % RDI: 100% Kcal; 82% AA. Goal #1 Provide at least 75% of energy /protein needs through Enteral Feeding during LOS. Goal #2 Adjust the dietary intervention to better serve Pt's needs and clinical conditions during LOS. Follow-Up By: 03/19/22 Additional Comments When pertinent, start monitoring TF tolerance and BM .
[2022-03-19] MEDS: FAMOTIDINE 20 MG/2 ML INJ IV SCH (10:03)
[2022-03-19] MEDS: DEXTROSE 5% IN WATER 1,000 ML IV SCH (10:03)
[2022-03-19] MEDS: CEFEPIME/NS 1 GM/100 ML 1 GM/100 ML BAG IV SCH (10:03)
[2022-03-20] MEDS: INSULIN LISPRO 100 UNIT/ML SUB-Q SCH ×4 (00:35→18:12)
[2022-03-20] MEDS: DEXTROSE 5% IN WATER 1,000 ML IV SCH ×2 (00:35→18:10)
[2022-03-20] MEDS: INSULIN GLARGINE 100 UNITS/ML SUB-Q SCH (10:13)
[2022-03-20] MEDS: FAMOTIDINE 20 MG/2 ML INJ IV SCH (10:14)
[2022-03-20] MEDS: CEFEPIME/NS 1 GM/100 ML 1 GM/100 ML BAG IV SCH (10:14)
--- NOTE | 2022-03-20 13:08 | Progress Note ---
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 Pt also reported to be tachycardia. This patient is non verbal from her previous stroke but manage to walk with logging assistant which she was not able to do today. No other modifying or associated factors reported. CT scan of the head showed 1. Multiple , prior cerebral insults identified, as described above. It would be difficult to evaluate for small areas of ischemia without diffusion imaging by MRI. Please clinically correlate. 2. Subtle area of increased attenuation in the right gangliocapsular region, as described above. Subsequently patient is seen and evaluated by telemetry neurology In the emergency room patient is found to have WBC of 22.4, also patient has UTI. Patient lactic acid is 3.30 and troponin is 0.145. Patient BUN 49 creatinine 2.5 Hospital Course: 03/17: Remains encephalopathic but she is protecting airway. VSS. CVA appears to be chronic based on image findings and clinical history . Presentaiton appears to be driven by UTI and metabolic derrangements. IVF+abx therapy initiated. Patient appears to be from home, [place]. Will go back there when medically stable. 03/18: Follows yes/no commands, nonverbal at baseline. daughter at bedside during encounter. Stated mother has not been having sufficient oral intake despite being clear for puree diet. ST eval currently pending. Consult to GI for PEG. MRI/BLANCA pending work up for CVA however still have low suspicion for new CVA. Sepsis/UTI/encephalopathy improved with IVF/Abx. Will follow neuro recs re: Antiplatelet strategy. Patient has a history of hemorrhagic cva in November 2021 per daughter and they were at the time told that the patient should not be on Aspirin. however, records from [facility] admission in January 2022 seem to indicate that she was placed on plavix at the time of d/c. ASA and plavix on hold at this time pending neurology recommendation. 03/19: NGT placed. NPO for now as GI may place PEG today or tomorrow. Plan for return back to [facility] once placed. 03/20: Plan for PEG tube today .can be discharged back to [facility] once PEG placed and confirmed to be functional. Assessment and Plan: #Sepsis #Urinary tract infection #Toxic metabolic encephalopathy - confusion,weakness presentation appears to be largely driven by UTI, CVA ruled out - WBC: 22.4K, LA: 3.3-> 1.9, UA WBC 24. - Ucx, bcx, coronavirus test ordered - IVF: D5W at 75 cc/hr - empiric tx with Cefepime IV #History of CVA - history of CVA x 4 in past. Most recent was hemorrhagic cva in November 2021 and ischemic cva in January 2022. - CT imaging negative for acute findings - [facility] does not believe this is an acute cva - PT/OT ordered - Patient at baseline is nonverbal and has some gait instability. - NPO for now, may need ST eval for swallow evaluation, unclear what patient's baseline was BODY MASKER. - TTE pending - MRI brain pending - will follow tele neuro recommendation. - speech eval - Patient was cleared after stroke last month for puree diet however caloric intake has been poor per daughter. Will consult GI for PEG. #NSTEMI type II - troponin: 0.145 - likely driven by underlying sepsis -cardiology consulted #History of DVT/PE with IVC filter - per conversation with Dr Huerta, patient has a history of DVT/PE with IVC filter placement - anticoagulation is contraindicated in this patient. #Acute kidney injury due to vasomotor nephropathy #Hypernatremia - Na: 150, Cr: 2.5 on admission - likely volume depletion - hydration with hypotonic fluids: D5W ordered - avoid nephrotoxins - trend renal fx on bmp. History Interval history: No acute overnight issues or complaints. Hospitalist Physical - Physical exam Narrative exam: Physical Exam: VITAL SIGNS: Reviewed. GENERAL: The patient appears normally developed, Vital signs as documented. Not in any distress, confused HEAD: No signs of head trauma. EYES: Pupils are equal. Extraocular motions intact. EARS: Hearing grossly intact. MOUTH: Oropharynx is normal. NECK: No adenopathy, no JVD. Nose: NG in place. CHEST: Chest with clear breath sounds bilaterally. No wheezes, rales, or rhonchi. CARDIAC: Regular rate and rhythm. S1 and S2, without murmurs, gallops, or rubs. VASCULAR: No Edema. Peripheral pulses normal and equal in all extremities. ABDOMEN: Soft, non tender and non distended. No rebound or guarding, and no masses palpated. Bowel Sounds normal. MUSCULOSKELETAL: Good range of motion of all major joints. Extremities without clubbing, cyanosis or edema. NEUROLOGIC EXAM: Confused, oriented x0. PSYCHIATRIC: Unable to assess SKIN: detail exam as documented in skin assessment - Constitutional Vitals: Temp Pulse Resp BP Pulse Ox 98.6 F 86 18 139/77 80 L 03/20/22 11:59 03/20/22 11:59 03/20/22 11:59 03/20/22 11:59 03/20/22 11:59 General appearance: Present: no acute distress, well-nourished HEART Score - HEART Score Troponin: Troponin T 0.145 ng/mL (0.00-0.029) H* 03/16/22 18:13 Results - Labs CBC & Chem 7: 03/18/22 16:03 03/18/22 16:03 Labs: Laboratory Last Values WBC 17.8 K/mm3 (4.5-11.0) H 03/18/22 16:03 RBC 3.44 M/mm3 (3.65-5.03) L 03/18/22 16:03 Hgb 9.6 gm/dl (10.1-14.3) L 03/18/22 16:03 Hct 30.3 % (30.3-42.9) 03/18/22 16:03 MCV 88 fl (79-97) 03/18/22 16:03 MCH 28 pg (28-32) 03/18/22 16:03 MCHC 32 % (30-34) 03/18/22 16:03 RDW 15.5 % (13.2-15.2) H 03/18/22 16:03 Plt Count 191 K/mm3 (140-440) 03/18/22 16:03 Add Manual Diff Complete 03/18/22 16:03 Total Counted 100 03/18/22 16:03 Seg Neutrophils % Fish Net Maker 03/18/22 16:03 Seg Neuts % (Manual) 96.0 % (40.0-70.0) H 03/18/22 16:03 Band Neutrophils % 0 % 03/18/22 16:03 Lymphocytes % (Manual) 3.0 % (13.4-35.0) L 03/18/22 16:03 Reactive Lymphs % (Man) 0 % 03/18/22 16:03 Monocytes % (Manual) 1.0 % (0.0-7.3) 03/18/22 16:03 Eosinophils % (Manual) 0 % (0.0-4.3) 03/18/22 16:03 Basophils % (Manual) 0 % (0.0-1.8) 03/18/22 16:03 Metamyelocytes % 0 % 03/18/22 16:03 Myelocytes % 0 % 03/18/22 16:03 Promyelocytes % 0 % 03/18/22 16:03 Blast Cells % 0 % 03/18/22 16:03 Nucleated RBC % Not Reportable 03/18/22 16:03 Seg Neutrophils # Man 17.1 K/mm3 (1.8-7.7) H 03/18/22 16:03 Band Neutrophils # 0.0 K/mm3 03/18/22 16:03 Lymphocytes # (Manual) 0.5 K/mm3 (1.2-5.4) L 03/18/22 16:03 Abs React Lymphs (Man) 0.0 K/mm3 03/18/22 16:03 Monocytes # (Manual) 0.2 K/mm3 (0.0-0.8) 03/18/22 16:03 Eosinophils # (Manual) 0.0 K/mm3 (0.0-0.4) 03/18/22 16:03 Basophils # (Manual) 0.0 K/mm3 (0.0-0.1) 03/18/22 16:03 Metamyelocytes # 0.0 K/mm3 03/18/22 16:03 Myelocytes # 0.0 K/mm3 03/18/22 16:03 Promyelocytes # 0.0 K/mm3 03/18/22 16:03 Blast Cells # 0.0 K/mm3 03/18/22 16:03 WBC Morphology Not Reportable 03/18/22 16:03 Hypersegmented Neuts Not Reportable 03/18/22 16:03 Hyposegmented Neuts Not Reportable 03/18/22 16:03 Hypogranular Neuts Not Reportable 03/18/22 16:03 Smudge Cells Not Reportable 03/18/22 16:03 Toxic Granulation Not Reportable 03/18/22 16:03 Toxic Vacuolation Not Reportable 03/18/22 16:03 Dohle Bodies Not Reportable 03/18/22 16:03 Pelger-Huet Anomaly Not Reportable 03/18/22 16:03 Patsy Rods Not Reportable 03/18/22 16:03 Platelet Estimate Consistent w auto 03/18/22 16:03 Clumped Platelets Not Reportable 03/18/22 16:03 Plt Clumps, EDTA Not Reportable 03/18/22 16:03 Large Platelets Not Reportable 03/18/22 16:03 Giant Platelets Not Reportable 03/18/22 16:03 Platelet Satelliting Not Reportable 03/18/22 16:03 Plt Morphology Comment Not Reportable 03/18/22 16:03 RBC Morphology Not Reportable 03/18/22 16:03 Dimorphic RBCs Not Reportable 03/18/22 16:03 Polychromasia Not Reportable 03/18/22 16:03 Hypochromasia Not Reportable 03/18/22 16:03 Poikilocytosis Not Reportable 03/18/22 16:03 Anisocytosis 1+ 03/18/22 16:03 Microcytosis Not Reportable 03/18/22 16:03 Macrocytosis Not Reportable 03/18/22 16:03 Spherocytes Not Reportable 03/18/22 16:03 Pappenheimer Bodies Not Reportable 03/18/22 16:03 Sickle Cells Not Reportable 03/18/22 16:03 Target Cells Not Reportable 03/18/22 16:03 Tear Drop Cells Not Reportable 03/18/22 16:03 Ovalocytes Not Reportable 03/18/22 16:03 Helmet Cells Not Reportable 03/18/22 16:03 [place] Bodies Not Reportable 03/18/22 16:03 Daven[place] Rings Not Reportable 03/18/22 16:03 Eliceo Cells Not Reportable 03/18/22 16:03 Bite Cells Not Reportable 03/18/22 16:03 Crenated Cell Not Reportable 03/18/22 16:03 Elliptocytes Not Reportable 03/18/22 16:03 Acanthocytes (Spur) Not Reportable 03/18/22 16:03 Rouleaux Not Reportable 03/18/22 16:03 Hemoglobin C Crystals Not Reportable 03/18/22 16:03 Schistocytes Not Reportable 03/18/22 16:03 Malaria parasites Not Reportable 03/18/22 16:03 Kali Bodies Not Reportable 03/18/22 16:03 Hem Pathologist Commnt No 03/18/22 16:03 PT 15.2 Sec. (12.2-14.9) H 03/16/22 18:13 INR 1.08 (0.87-1.13) 03/16/22 18:13 APTT 31.8 Sec. (24.2-36.6) 03/16/22 18:13 Thrombin Time 22.4 Sec. (15.1-19.6) H 03/16/22 18:13 Sodium 153 mmol/L (137-145) H 03/18/22 16:03 Potassium 3.5 mmol/L (3.6-5.0) L 03/18/22 16:03 Chloride 116.7 mmol/L (98-107) H 03/18/22 16:03 Carbon Dioxide 21 mmol/L (22-30) L 03/18/22 16:03 Anion Gap 19 mmol/L 03/18/22 16:03 BUN 56 mg/dL (7-17) H 03/18/22 16:03 Creatinine 2.2 mg/dL (0.6-1.2) H 03/18/22 16:03 Estimated GFR 23 ml/min 03/18/22 16:03 BUN/Creatinine Ratio 25 % 03/18/22 16:03 Glucose 276 mg/dL (65-100) H 03/18/22 16:03 POC Glucose 302 mg/dL (70-105) H 03/20/22 06:04 Lactic Acid 1.90 mmol/L (0.7-2.0) 03/16/22 21:38 Calcium 8.4 mg/dL (8.4-10.2) 03/18/22 16:03 Total Bilirubin 0.60 mg/dL (0.1-1.2) 03/16/22 18:13 AST 34 units/L (5-40) 03/16/22 18:13 ALT 22 units/L (7-56) 03/16/22 18:13 Alkaline Phosphatase 130 units/L (35-129) H 03/16/22 18:13 Total Creatine Kinase 454 units/L (30-135) H 03/16/22 18:13 CK-MB (CK-2) 7.0 ng/mL (0.0-4.0) H 03/16/22 18:13 CK-MB (CK-2) Rel Index 1.5 (0-4) 03/16/22 18:13 Troponin T 0.145 ng/mL (0.00-0.029) H* 03/16/22 18:13 Total Protein 7.1 g/dL (6.3-8.2) 03/16/22 18:13 Albumin 3.2 g/dL (3.9-5) L 03/16/22 18:13 Albumin/Globulin Ratio 0.8 % 03/16/22 18:13 Triglycerides 216 mg/dL (2-149) H 03/16/22 18:13 Cholesterol 126 mg/dL (50-199) 03/16/22 18:13 LDL Cholesterol Direct 53 mg/dL (50-130) 03/16/22 18:13 HDL Cholesterol 32 mg/dL (40-59) L 03/16/22 18:13 Cholesterol/HDL Ratio 3.93 % 03/16/22 18:13 Urine Color Yellow (Yellow) 03/16/22 16:49 Urine Turbidity Cloudy (Clear) 03/16/22 16:49 Specific [place] (Man) 1.030 (1.003-1.030) 03/16/22 16:49 Ur Protein (Man) 3+ mg/dL (Negative) 03/16/22 16:49 Ur Ketones (Man) 1+ (Negative) 03/16/22 16:49 Urine Bilirubin (Man) Large (Negative) 03/16/22 16:49 Urine WBC (Auto) 24.0 /HPF (0.0-6.0) H 03/16/22 16:49 Urine RBC (Auto) 14.0 /HPF (0.0-6.0) 03/16/22 16:49 U Epithel Cells (Auto) 16.0 /HPF (0-13.0) H 03/16/22 16:49 Urine Bacteria (Auto) 2+ /HPF (Negative) 03/16/22 16:49 Urine RBC (Manual) 1+ (Negative) 03/16/22 16:49 Calcium Oxalate Crystal 1+ 03/16/22 16:49 Amorphous Crystals 3+ 08/22/22 16:49 Urine Mucus Few /HPF 03/16/22 16:49 Nasal Screen MRSA (PCR) Negative (Negative) 03/18/22 15:00 Urine Opiates Screen Negative 03/16/22 16:49 Urine Methadone Screen Negative 03/16/22 16:49 Ur Barbiturates Screen Negative 03/16/22 16:49 Ur Phencyclidine Scrn Negative 03/16/22 16:49 Ur Amphetamines Screen Negative 03/16/22 16:49 U Benzodiazepines Scrn Negative 03/16/22 16:49 Urine Cocaine Screen Negative 03/16/22 16:49 U Marijuana (THC) Screen Negative 03/16/22 16:49 Drugs of Abuse Note Disclamer 03/16/22 16:49 Coronavirus (PCR) Negative (Negative) 03/19/22 10:52 Microbiology: Microbiology 03/17/22 10:35 Peripheral/Venous Blood Culture - Preliminary NO GROWTH AFTER 72 HOURS 03/17/22 10:35 Peripheral/Venous Blood Culture - Preliminary NO GROWTH AFTER 72 HOURS 03/16/22 16:49 Urine,Clean Catch Urine Culture - Final Hayes/IV: Voiding Method Indwelling Catheter Active Medications - Current Medications Current Medications: Generic Name Dose Route Start Last Admin Trade Name Freq PRN Reason Stop Dose Admin Acetaminophen 650 mg 03/16/22 23:01 Acetaminophen 325 Mg Tab PO Q4H PRN Pain MILD(1-3)/Fever >100.5/PINEDA Albuterol 2.5 mg 03/16/22 23:01 Albuterol 2.5 Mg/3 Ml Nebu IH Q3HRT PRN Shortness Of Breath Atorvastatin Calcium 40 mg 03/17/22 22:00 03/19/22 21:02 Atorvastatin 40 Mg Tab PO 40 mg QHS DARIANA Administration Dextrose 0 ml 03/16/22 23:01 Dextrose 50% In Water (25gm) 50 Ml Syringe IV Q30MIN PRN Hypoglycemia Protocol Famotidine 20 mg 03/17/22 10:00 03/20/22 10:14 Famotidine 20 Mg/2 Ml Inj IV 20 mg QAM DARIANA Administration Cefepime HCl 1 gm in 100 mls @ 200 mls/hr 03/17/22 10:00 03/20/22 10:14 Cefepime/Ns 1 Gm/100 Ml IV 200 mls/hr Q24HR DARIANA Administration Protocol Dextrose 1,000 mls @ 75 mls/hr 03/17/22 12:00 03/20/22 00:35 D5w IV 75 mls/hr DIRECT DARIANA Administration Insulin Glargine 20 units 03/20/22 10:00 03/20/22 10:13 Insulin Glargine 100 Units/Ml SUB-Q Not Given QAM DARIANA Insulin Human Lispro 0 unit 03/17/22 00:00 03/20/22 06:16 Insulin Lispro 100 Unit/Ml SUB-Q 6 unit Q6HR DARIANA Administration Protocol Morphine Sulfate 2 mg 03/16/22 23:01 Morphine 2 Mg/1 Ml Inj IV Q4H PRN Pain, Moderate (4-6) Morphine Sulfate 4 mg 03/16/22 23:01 Morphine 4 Mg/1 Ml Inj IV Q4H PRN Pain , Severe (7-10) Ondansetron HCl 4 mg 03/16/22 23:01 Ondansetron 4 Mg/2 Ml Inj IV Q8H PRN Nausea And Vomiting Sodium Chloride 10 ml 03/17/22 10:00 03/20/22 10:14 Sodium Chloride 0.9% 10 Ml Flush Syringe IV Not Given BID DARIANA Sodium Chloride 10 ml 03/16/22 23:01 Sodium Chloride 0.9% 10 Ml Flush Syringe IV PRN PRN LINE FLUSH Nutrition/Malnutrition Assess - Dietary Evaluation Nutrition/Malnutrition Findings: Nutrition Notes Start: 03/17/22 12:20 Freq: Status: Active Protocol: Document 03/19/22 10:26 SUDHIR (Rec: 03/19/22 10:32 SUDHIR [id number]) Nutrition Notes Initial or Follow up Brief Note Current Diagnosis Acute Kidney Injury,Decubitus( Pressure Ulcer),Diabetes, Sepsis,Hypertension,Stroke Other Pertinent Diagnosis UTI, Metabolic Encephalopathy, Leukocytosis, NSTEMI II, PE/ DVT s/p IVC. Current Diet NPO (since 03/16 17:54). Height 5 ft 5 in Weight 68.9 kg Graham Body Weight (kg) 56.81 BMI 25.2 Weight change and time frame No body weight change reported in 1 day. Weight Status Overweight Subjective/Other Information RD consult for routine F/U on dietary advancement. Pt continues on NPO. No TF order received at the time. Pt is on Room Air, O2 saturation @ 100%, according to Physical Assessment History notes. Plans for PEG-tube placement on 03/20, according to Progress notes. Percent of energy/protein needs met: Pt continues on NPO. #1 Nutrition Diagnosis Malnutrition Diagnosis Progress(for reassessment Continues documentation) Is patient on ventilator? No Is Patient Ambulatory and/or Out of Bed No REE-(Almond-St. Jeor-confined to bed) 1510.884 Calculation Used for Recommendations Almond-St Jeor Additional Notes Protein: 0.2-1.5 g/Kg ABW; 83- 104 g/day. Fluids: 1 ml/Kcal, or as per MD. Nutrition Intervention Goal #1 Adjust the dietary intervention to better serve Pt's needs and clinical conditions during LOS. Follow-Up By: 03/20/22 Additional Comments When pertinent, start monitoring TF tolerance and BM .When pertinent, start monitoring TF tolerance and BM .
[2022-03-20 14:09] LABS: Basophils % (Auto) 0.1 % (0.0-1.8); Eosinophils # (Auto) 0.1 K/mm3 (0.0-0.4); Eosinophils % (Auto) 0.7 % (0.0-4.3); Hematocrit 25.6 % (30.3-42.9); Hemoglobin 8.7 gm/dl (10.1-14.3); Lymphocytes # (Auto) 0.9 K/mm3 (1.2-5.4); Lymphocytes % (Auto) 7.1 % (13.4-35.0); Mean Corpuscular HGB Conc 34 % (30-34); Mean Corpuscular Volume 86 fl (79-97); Monocytes # (Auto) 0.5 K/mm3 (0.0-0.8); Platelet Count 150 K/mm3 (140-440); Red Blood Count 2.97 M/mm3 (3.65-5.03); Red Cell Distribution Width 14.7 % (13.2-15.2)
[2022-03-20 14:37] LABS: Calcium 7.8 mg/dL (8.4-10.2)
[2022-03-20] MEDS ORDERED: SODIUM CHLORIDE 0.9% 1000 ML 1,000 ML ONE (14:50)
--- NOTE | 2022-03-20 15:16 | Anesthesia Day of Surgery ---
Anesthesia Day of Surgery - Day of Surgery Patient Examined: Yes Patient H&P Reviewed: Yes Patient is NPO: Yes
--- NOTE | 2022-03-20 15:20 | Anesthesia Consultation ---
Anesthesia Consult and Med Hx Date of service: 03/20/22 - Airway Intubation Access Assessment: Probably Good (Unable to assess airway) - Pre-Operative Health Status ASA Pre-Surgery Classification: ASA3 Proposed Anesthetic Plan: MAC - Cardiovascular System Hx Hypertension: Yes (CHF) Hx Heart Attack/AMI: Yes (NSTEMI type II) Hx Peripheral Vascular Disease: Yes (History of DVT/PE with IVC filter) - Central Nervous System CVA: Yes (L-sided weakness) - Endocrine Hx Renal Disease: Yes (UTI and OSMAN) Hx Non-Insulin Dependent Diabetes: Yes - Hematic Hx Anemia: Yes Hx Sickle Cell Disease: No - Other Systems Hx Obesity: No - Additional Comments Anesthesia Medical History Comments: Echo 02/04/2022-?LVEF 60 - 65%. LV systolic function is normal. LV size is normal. LV volume is normal. Normal LV wall thickness. LV wall motion normal. Normal LV diastolic function. RV normal size. RV systolic function is normal. LA normal size. No evidence of PFO by color flow Doppler and agitated saline contrast. Tricuspid aortic valve. Mild aortic valve sclerosis. No aortic regurgitation. No aortic valve stenosis. Mitral valve normal. Aortic root normal. Ascending aorta normal. No pericardial effusion.
[2022-03-20] MEDS ORDERED: fentaNYL 100 MCG/2 ML INJ ONE (15:24)
[2022-03-20] MEDS ORDERED: propofoL 200 MG/20 ML VIAL IV ONE ×2 (15:25→16:03)
[2022-03-20] MEDS ORDERED: SODIUM CHLORIDE 0.9% 1000 ML 1,000 ML IV SCH (16:00)
--- NOTE | 2022-03-20 16:27 | Operative Report ---
Operative Report Operative Report: Date of procedure: 03/20/2022 Pre procedure diagnosis: Inability to swallow due to CVA Post procedure diagnosis: same Procedure: Esophagogastroduodenoscopy with percutaneous endoscopic gastrostomy Endoscopist: Rafael Garcia MD (Jenny) Medications: Per anesthesia- see separate records for details./ patient on cefepime IV Complications: none Estimated blood loss: None After careful discussion of the nature and purpose of the procedure, details of the technique, risks, benefits and alternatives consent was obtained from patient's family. The patient was placed in the left lateral decubitus position and medicated by anesthesia- see separate records for details. The tip of the olympus video upper scope was passed per orum under direct view through the mouth and into the esophagus, stomach and duodenum. The scope was advanced to the third portion of the duodenum without difficulty. The third portion and second portion of the duodenum were normal. The bulb revealed normal mucosa. The scope was withdrawn back into the stomach and the stomach gently insufflated with air. The antrum revealed normal mucosa. The scope was then retroflexed and partially withdrawn to inspect the proximal stomach. The cardia, fundus and body were normal. The stomach was insufflated and a suitable gastrostomy site selected by transillumination and percutaneous compression demonstrating good opposition of the stomach and abdominal wall. The abdomen was prepped and draped in sterile f ashion and 1% lidocaine instilled at the optimal site. A small incision was made and the tissue spread with sterile hemostats. The needle and catheter were inserted percutaneously into the stomach without difficulty under direct view. The needle was withdrawn followed by insertion of the guidewire through the catheter. The guidewire was grasped by the snare and positioned by withdrawal of the scope. A [employer] 20 gauge gastrostomy tube was pulled into place from the abdominal side of the wire to a snug fit at 2-3 cm on the skin. The external bumper was applied and the site again dressed in sterile fashion. The scope was then withdrawn in the forward view. The EG junction was at 40 cm. The esophagus revealed normal mucosa throughout. . The procedure was well tolerated and the patient was observed in the GI recovery unit. IMPRESSION: 1. S/p Percutaneous Endoscopic gastrostomy. Plan: 1. Ok to start using tube for meds in 6 hours and May use PEG tube tomorrow if patient has good bowel sounds and no significant erythema/induration/signs of infection at PEG insertion site. Rafael Lanza) MD [facility]
--- NOTE | 2022-03-20 16:31 | Post Anesthesia Evaluation ---
- Post Anesthesia Evaluation Patient Participated: Yes Airway Patent: Yes Stable Respiratory Function: Yes Nausea/Vomiting: No Temp > 96.8F: Yes Pain Manageable: Yes Adequeate Hydration: Yes Anesthesia Complications: No Block Receding Appropriately: Not Applicable Patient on Ventilator: No
[2022-03-21] MEDS: INSULIN LISPRO 100 UNIT/ML SUB-Q SCH ×4 (00:24→17:18)
[2022-03-21] MEDS: INSULIN GLARGINE 100 UNITS/ML SUB-Q SCH (08:59)
[2022-03-21] MEDS: CEFEPIME/NS 1 GM/100 ML 1 GM/100 ML BAG IV SCH (08:59)
[2022-03-21] MEDS: FAMOTIDINE 20 MG/2 ML INJ IV SCH (08:59)
[2022-03-21] MEDS ORDERED: SIMPLE SYRUP 15 ML FEEDTUBE PRN ×2 (09:27)
[2022-03-21] MEDS ORDERED: LIPASE 10,500/PROTEASE 25,000/AMYLASE 43,750 (UNITS) DR CAP FEEDTUBE PRN (09:27)
[2022-03-21] MEDS ORDERED: SODIUM BICARBONATE 325 MG TAB FEEDTUBE PRN (09:27)
[2022-03-21] MEDS ORDERED: INSULIN GLARGINE 100 UNITS/ML SUB-Q SCH (09:29)
[2022-03-21] MEDS ORDERED: POTASSIUM CHLORIDE 20 MEQ PACKET FEEDTUBE ONE (09:30)
--- NOTE | 2022-03-21 09:35 | Discharge Summary ---
Providers - Providers Date of Admission: 03/16/22 23:01 Date of discharge: 03/21/22 Attending physician: DOLORES SHARMA MD 03/16/22 Consult to Physician [CONS] Routine Comment: Consulting Provider: LUPE GARCIA Physician Instructions: Reason For Exam: elevated troponin 03/16/22 23:01 Consult to Dietitian/Nutrition [CONS] Routine Physician Instructions: Reason For Exam: Reason for Consult: Diet education Occupational Therapy Evaluate and Treat [CONS] Routine Comment: Reason For Exam: Neuro deficits Physical Therapy Evaluation and Treat [CONS] Routine Comment: Reason For Exam: Neuro deficits 03/16/22 23:06 Consult to Physician [CONS] Routine Comment: Consulting Provider: ZO VALDEZ Physician Instructions: Reason For Exam: cva 03/18/22 08:22 Speech Therapy Evaluation and Treat [CONS] Routine Reason For Exam: Swallow Screen 03/18/22 11:38 Consult to Physician [CONS] Routine Comment: Consulting Provider: LORENA FRANCOIS Physician Instructions: Reason For Exam: PEG tube 03/19/22 08:33 Speech Therapy Evaluation and Treat [CONS] Routine Reason For Exam: eval and tx 03/20/22 14:37 Consult to Wound/ET Nurse [CONS] Routine Reason For Exam: wound eval on sacrum Primary care physician: ARIAS PERKINS Hospitalization Reason for admission: Altered mental status Condition: Stable Hospital course: History of present illness: 62 yo F with 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 Pt also reported to be tachycardia. This patient is non verbal from her previous stroke but manage to walk with senior it assistant which she was not able to do today. No other modifying or associated factors reported. CT scan of the head showed 1. Multiple , prior cerebral insults identified, as described above. It would be difficult to evaluate for small areas of ischemia without diffusion imaging by MRI. Please clinically correlate. 2. Subtle area of increased attenuation in the right gangliocapsular region, as described above. Subsequently patient is seen and evaluated by telemetry neurology In the emergency room patient is found to have WBC of 22.4, also patient has UTI. Patient lactic acid is 3.30 and troponin is 0.145. Patient BUN 49 creatinine 2.5 Hospital Course: 03/17: Remains encephalopathic but she is protecting airway. VSS. CVA appears to be chronic based on image findings and clinical history . Presentaiton appears to be driven by UTI and metabolic derrangements. IVF+abx therapy initiated. Patient appears to be from home, [place]. Will go back there when medically stable. 03/18: Follows yes/no commands, nonverbal at baseline. daughter at bedside during encounter. Stated mother has not been having sufficient oral intake despite being clear for puree diet. ST eval currently pending. Consult to GI for PEG. MRI/BLANCA pending work up for CVA however still have low suspicion for new CVA. Sepsis/UTI/encephalopathy improved with IVF/Abx. Will follow neuro recs re: Antiplatelet strategy. Patient has a history of hemorrhagic cva in November 2021 per daughter and they were at the time told that the patient should not be on Aspirin. however, records from [facility] admission in January 2022 seem to indicate that she was placed on plavix at the time of d/c. ASA and plavix on hold at this time pending neurology recommendation. 03/19: NGT placed. NPO for now as GI may place PEG today or tomorrow. Plan for return back to [facility] once placed. 03/20: Plan for PEG tube today .can be discharged back to [facility] once PEG placed and confirmed to be functional. 03/21: S/p PEG tube placement. initiated on TF. Last dose Cefepime for tx of UTI today. Medical clear for d/c to [facility]. Discharge pending placement. Assessment and Plan: #Sepsis #Urinary tract infection #Toxic metabolic encephalopathy - confusion,weakness presentation appears to be largely driven by UTI, CVA ruled out - WBC: 22.4K, LA: 3.3-> 1.9, UA WBC 24. - Ucx, bcx, coronavirus test ordered - IVF: D5W at 75 cc/hr - empiric tx with Cefepime IV #History of CVA - history of CVA x 4 in past. Most recent was hemorrhagic cva in November 2021 and ischemic cva in January 2022. - CT imaging negative for acute findings - [facility] does not believe this is an acute cva - PT/OT ordered - Patient at baseline is nonverbal and has some gait instability. - NPO for now, may need ST eval for swallow evaluation, unclear what patient's baseline was [employer]. - TTE pending - MRI brain pending - will follow tele neuro recommendation. - speech eval, recommend NPO - glucerna 35 cc/hr continuous feed goal with 200 cc FWF q4hr - s/p PEG placement on 03/20 by GI. #NSTEMI type II - troponin: 0.145 - likely driven by underlying sepsis -cardiology consulted #History of DVT/PE with IVC filter - per conversation with Dr Huerta, patient has a history of DVT/PE with IVC filter placement - anticoagulation is contraindicated in this patient. #Acute kidney injury due to vasomotor nephropathy #Hypernatremia - Na: 150, Cr: 2.5 on admission - likely volume depletion - hydration with hypotonic fluids: D5W ordered - avoid nephrotoxins - trend renal fx on bmp. Disposition: 03 [facility] Final Discharge Diagnosis (Prints w/discharge instructions): Acute metabolic encephalopathy, sepsis, uti, chronic cva Time spent for discharge: 35 Core Measure Documentation - Palliative Care Palliative Care/ Comfort Measures: Not Applicable - Core Measures Any of the following diagnoses?: none Exam - Physical Exam Narrative exam: Physical Exam: VITAL SIGNS: Reviewed. GENERAL: The patient appears normally developed, Vital signs as documented. Not in any distress, confused HEAD: No signs of head trauma. EYES: Pupils are equal. Extraocular motions intact. EARS: Hearing grossly intact. MOUTH: Oropharynx is normal. NECK: No adenopathy, no JVD. Nose: NG in place. CHEST: Chest with clear breath sounds bilaterally. No wheezes, rales, or rhonchi. CARDIAC: Regular rate and rhythm. S1 and S2, without murmurs, gallops, or rubs. VASCULAR: No Edema. Peripheral pulses normal and equal in all extremities. ABDOMEN: s/p peg. Soft, non tender and non distended. No rebound or guarding, and no masses palpated. Bowel Sounds normal. MUSCULOSKELETAL: Good range of motion of all major joints. Extremities without clubbing, cyanosis or edema. NEUROLOGIC EXAM: Confused, oriented x0. PSYCHIATRIC: Unable to assess SKIN: detail exam as documented in skin assessment - Constitutional Vitals: Temp Pulse Resp BP Pulse Ox 98.3 F 82 15 124/59 99 03/21/22 08:01 03/21/22 08:01 03/21/22 08:01 03/21/22 08:01 03/21/22 08:01 Plan Follow up with: ARIAS PERKINS MD [Primary Care Provider] - 3-5 Days
--- NOTE | 2022-03-21 10:33 | Gastroenterology Progress Note ---
Assessment and Plan oropharyngeal dysphagia - s/p egd/peg 03/20, can resume plavix if no signs of bleeding, tube feedings per nutrition recommendations. post-peg care daily. will sign off, please call as needed. Subjective Date of service: 03/21/22 Principal diagnosis: AMS/CVA/Sepsis Interval history: s/p egd/peg placement yesterday. tolerating tube feeds, no events overnight. Objective - Exam Narrative Exam: gen: nad, non-verbal abd: soft, peg tube site c/d/i - external bumper loosened at bedside CV: rrr - Constitutional Vitals: Temp Pulse Resp BP Pulse Ox 98.3 F 82 15 124/59 99 03/21/22 08:01 03/21/22 08:01 03/21/22 08:01 03/21/22 08:01 03/21/22 08:01 - Labs CBC & Chem 7: 03/20/22 14:00 03/20/22 14:00 Labs: Laboratory Results - last 24 hr 03/20/22 03/20/22 03/20/22 12:01 14:00 14:00 WBC 13.2 H RBC 2.97 L Hgb 8.7 L Hct 25.6 L MCV 86 MCH 29 MCHC 34 RDW 14.7 Plt Count 150 Lymph % (Auto) 7.1 L [place] % (Auto) 4.0 Eos % (Auto) 0.7 Baso % (Auto) 0.1 Lymph # (Auto) 0.9 L [place] # (Auto) 0.5 Eos # (Auto) 0.1 Baso # (Auto) 0.0 Seg Neutrophils % 88.1 H Seg Neutrophils # 11.6 H Sodium 140 D Potassium 3.0 L Chloride 105.6 Carbon Dioxide 22 Anion Gap 15 BUN 33 H Creatinine 1.4 H Estimated GFR 38 BUN/Creatinine Ratio 24 Glucose 240 H POC Glucose 199 H Calcium 7.8 L 03/20/22 03/20/22 03/20/22 15:02 17:34 23:22 WBC RBC Hgb Hct MCV MCH MCHC RDW Plt Count Lymph % (Auto) [place] % (Auto) Eos % (Auto) Baso % (Auto) Lymph # (Auto) [place] # (Auto) Eos # (Auto) Baso # (Auto) Seg Neutrophils % Seg Neutrophils # Sodium Potassium Chloride Carbon Dioxide Anion Gap BUN Creatinine Estimated GFR BUN/Creatinine Ratio Glucose POC Glucose 243 H 248 H 272 H Calcium 03/21/22 03/21/22 05:23 08:04 WBC RBC Hgb Hct MCV MCH MCHC RDW Plt Count Lymph % (Auto) [place] % (Auto) Eos % (Auto) Baso % (Auto) Lymph # (Auto) [place] # (Auto) Eos # (Auto) Baso # (Auto) Seg Neutrophils % Seg Neutrophils # Sodium Potassium Chloride Carbon Dioxide Anion Gap BUN Creatinine Estimated GFR BUN/Creatinine Ratio Glucose POC Glucose 298 H 284 H Calcium
[2022-03-21] MEDS ORDERED: INSULIN GLARGINE 100 UNITS/ML SUB-Q ONE (11:00)
[2022-03-22] MEDS: INSULIN LISPRO 100 UNIT/ML SUB-Q SCH ×4 (07:02→17:39)
--- NOTE | 2022-03-22 08:42 | Progress Note ---
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 Pt also reported to be tachycardia. 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 No other modifying or associated factors reported. CT scan of the head showed 1. Multiple , prior cerebral insults identified, as described above. It would be difficult to evaluate for small areas of ischemia without diffusion imaging by MRI. Please clinically correlate. 2. Subtle area of increased attenuation in the right gangliocapsular region, as described above. Subsequently patient is seen and evaluated by telemetry neurology In the emergency room patient is found to have WBC of 22.4, also patient has UTI. Patient lactic acid is 3.30 and troponin is 0.145. Patient BUN 49 creatinine 2.5 Hospital Course: 03/17: Remains encephalopathic but she is protecting airway. VSS. CVA appears to be chronic based on image findings and clinical history . Presentaiton appears to be driven by UTI and metabolic derrangements. IVF+abx therapy initiated. Patient appears to be from home, [place]. Will go back there when medically stable. 03/18: Follows yes/no commands, nonverbal at baseline. daughter at bedside during encounter. Stated mother has not been having sufficient oral intake despite being clear for puree diet. ST eval currently pending. Consult to GI for PEG. MRI/BLANCA pending work up for CVA however still have low suspicion for new CVA. Sepsis/UTI/encephalopathy improved with IVF/Abx. Will follow neuro recs re: Antiplatelet strategy. Patient has a history of hemorrhagic cva in November 2021 per daughter and they were at the time told that the patient should not be on Aspirin. however, records from [facility] admission in January 2022 seem to indicate that she was placed on plavix at the time of d/c. ASA and plavix on hold at this time pending neurology recommendation. 03/19: NGT placed. NPO for now as GI may place PEG today or tomorrow. Plan for return back to [facility] once placed. 03/20: Plan for PEG tube today .can be discharged back to [facility] once PEG placed and confirmed to be functional. 03/21: S/p PEG tube placement. initiated on TF. Last dose Cefepime for tx of UTI today. Medical clear for d/c to [facility]. Discharge pending placement. 03/22: Per RN, high residuals after initiation of peg tube feeds. No BM reported in last 24hrs. Will order dulcolax AL x 1. Medical clear for d/c to [facility]. Discharge pending placement. Assessment and Plan: #Sepsis #Urinary tract infection #Toxic metabolic encephalopathy - confusion,weakness presentation appears to be largely driven by UTI, CVA ruled out - WBC: 22.4K, LA: 3.3-> 1.9, UA WBC 24. - Ucx, bcx, coronavirus test ordered - IVF: D5W at 75 cc/hr - Cefepime IV x 5 day. #History of CVA - history of CVA x 4 in past. Most recent was hemorrhagic cva in November 2021 and ischemic cva in January 2022. - CT imaging negative for acute findings - [facility] does not believe this is an acute cva - PT/OT ordered - Patient at baseline is nonverbal and has some gait instability. 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 - TTE pending - MRI brain pending - will follow tele neuro recommendation. - speech eval, recommend NPO - glucerna 35 cc/hr continuous feed goal with 200 cc FWF q4hr - s/p PEG placement on 03/20 by GI. #NSTEMI type II - troponin: 0.145 - likely driven by underlying sepsis -cardiology consulted #History of DVT/PE with IVC filter - per conversation with Dr Huerta, patient has a history of DVT/PE with IVC filter placement - anticoagulation is contraindicated in this patient. #Acute kidney injury due to vasomotor nephropathy #Hypernatremia - Na: 150, Cr: 2.5 on admission - likely volume depletion - hydration with hypotonic fluids: D5W ordered - avoid nephrotoxins - trend renal fx on bmp. History Interval history: No acute overnight issues. Per RN, high residuals after initiation of peg tube feeds. No BM reported in last 24hrs. Will order dulcolax AL x 1. Hospitalist Physical - Physical exam Narrative exam: Physical Exam: VITAL SIGNS: Reviewed. GENERAL: The patient appears normally developed, Vital signs as documented. Not in any distress, confused HEAD: No signs of head trauma. EYES: Pupils are equal. Extraocular motions intact. EARS: Hearing grossly intact. MOUTH: Oropharynx is normal. NECK: No adenopathy, no JVD. Nose: NG in place. CHEST: Chest with clear breath sounds bilaterally. No wheezes, rales, or rhonchi. CARDIAC: Regular rate and rhythm. S1 and S2, without murmurs, gallops, or rubs. VASCULAR: No Edema. Peripheral pulses normal and equal in all extremities. ABDOMEN: s/p peg. Soft, non tender and non distended. No rebound or guarding, and no masses palpated. Bowel Sounds normal. MUSCULOSKELETAL: Good range of motion of all major joints. Extremities without clubbing, cyanosis or edema. NEUROLOGIC EXAM: Confused, oriented x0. PSYCHIATRIC: Unable to assess SKIN: detail exam as documented in skin assessment - Constitutional Vitals: Temp Pulse Resp BP Pulse Ox 99.4 F 96 H 18 132/81 100 03/22/22 01:04 03/22/22 01:02 03/22/22 01:04 03/22/22 01:04 03/22/22 08:07 General appearance: Present: no acute distress, well-nourished HEART Score - HEART Score Troponin: Troponin T 0.145 ng/mL (0.00-0.029) H* 03/16/22 18:13 Results - Labs CBC & Chem 7: 03/20/22 14:00 03/20/22 14:00 Labs: Laboratory Last Values WBC 13.2 K/mm3 (4.5-11.0) H 03/20/22 14:00 RBC 2.97 M/mm3 (3.65-5.03) L 03/20/22 14:00 Hgb 8.7 gm/dl (10.1-14.3) L 03/20/22 14:00 Hct 25.6 % (30.3-42.9) L 03/20/22 14:00 MCV 86 fl (79-97) 03/20/22 14:00 MCH 29 pg (28-32) 03/20/22 14:00 MCHC 34 % (30-34) 03/20/22 14:00 RDW 14.7 % (13.2-15.2) 03/20/22 14:00 Plt Count 150 K/mm3 (140-440) 03/20/22 14:00 Lymph % (Auto) 7.1 % (13.4-35.0) L 03/20/22 14:00 [place] % (Auto) 4.0 % (0.0-7.3) 03/20/22 14:00 Eos % (Auto) 0.7 % (0.0-4.3) 03/20/22 14:00 Baso % (Auto) 0.1 % (0.0-1.8) 03/20/22 14:00 Lymph # (Auto) 0.9 K/mm3 (1.2-5.4) L 03/20/22 14:00 [place] # (Auto) 0.5 K/mm3 (0.0-0.8) 03/20/22 14:00 Eos # (Auto) 0.1 K/mm3 (0.0-0.4) 03/20/22 14:00 Baso # (Auto) 0.0 K/mm3 (0.0-0.1) 03/20/22 14:00 Add Manual Diff Complete 03/18/22 16:03 Total Counted 100 03/18/22 16:03 Seg Neutrophils % 88.1 % (40.0-70.0) H 03/20/22 14:00 Seg Neuts % (Manual) 96.0 % (40.0-70.0) H 03/18/22 16:03 Band Neutrophils % 0 % 03/18/22 16:03 Lymphocytes % (Manual) 3.0 % (13.4-35.0) L 03/18/22 16:03 Reactive Lymphs % (Man) 0 % 03/18/22 16:03 Monocytes % (Manual) 1.0 % (0.0-7.3) 03/18/22 16:03 Eosinophils % (Manual) 0 % (0.0-4.3) 03/18/22 16:03 Basophils % (Manual) 0 % (0.0-1.8) 03/18/22 16:03 Metamyelocytes % 0 % 03/18/22 16:03 Myelocytes % 0 % 03/18/22 16:03 Promyelocytes % 0 % 03/18/22 16:03 Blast Cells % 0 % 03/18/22 16:03 Nucleated RBC % Not Reportable 03/18/22 16:03 Seg Neutrophils # 11.6 K/mm3 (1.8-7.7) H 03/20/22 14:00 Seg Neutrophils # Man 17.1 K/mm3 (1.8-7.7) H 03/18/22 16:03 Band Neutrophils # 0.0 K/mm3 03/18/22 16:03 Lymphocytes # (Manual) 0.5 K/mm3 (1.2-5.4) L 03/18/22 16:03 Abs React Lymphs (Man) 0.0 K/mm3 03/18/22 16:03 Monocytes # (Manual) 0.2 K/mm3 (0.0-0.8) 03/18/22 16:03 Eosinophils # (Manual) 0.0 K/mm3 (0.0-0.4) 03/18/22 16:03 Basophils # (Manual) 0.0 K/mm3 (0.0-0.1) 03/18/22 16:03 Metamyelocytes # 0.0 K/mm3 03/18/22 16:03 Myelocytes # 0.0 K/mm3 03/18/22 16:03 Promyelocytes # 0.0 K/mm3 03/18/22 16:03 Blast Cells # 0.0 K/mm3 03/18/22 16:03 WBC Morphology Not Reportable 03/18/22 16:03 Hypersegmented Neuts Not Reportable 03/18/22 16:03 Hyposegmented Neuts Not Reportable 03/18/22 16:03 Hypogranular Neuts Not Reportable 03/18/22 16:03 Smudge Cells Not Reportable 03/18/22 16:03 Toxic Granulation Not Reportable 03/18/22 16:03 Toxic Vacuolation Not Reportable 03/18/22 16:03 Dohle Bodies Not Reportable 03/18/22 16:03 Pelger-Huet Anomaly Not Reportable 03/18/22 16:03 Patsy Rods Not Reportable 03/18/22 16:03 Platelet Estimate Consistent w auto 03/18/22 16:03 Clumped Platelets Not Reportable 03/18/22 16:03 Plt Clumps, EDTA Not Reportable 03/18/22 16:03 Large Platelets Not Reportable 03/18/22 16:03 Giant Platelets Not Reportable 03/18/22 16:03 Platelet Satelliting Not Reportable 03/18/22 16:03 Plt Morphology Comment Not Reportable 03/18/22 16:03 RBC Morphology Not Reportable 03/18/22 16:03 Dimorphic RBCs Not Reportable 03/18/22 16:03 Polychromasia Not Reportable 03/18/22 16:03 Hypochromasia Not Reportable 03/18/22 16:03 Poikilocytosis Not Reportable 03/18/22 16:03 Anisocytosis 1+ 03/18/22 16:03 Microcytosis Not Reportable 03/18/22 16:03 Macrocytosis Not Reportable 03/18/22 16:03 Spherocytes Not Reportable 03/18/22 16:03 Pappenheimer Bodies Not Reportable 03/18/22 16:03 Sickle Cells Not Reportable 03/18/22 16:03 Target Cells Not Reportable 03/18/22 16:03 Tear Drop Cells Not Reportable 03/18/22 16:03 Ovalocytes Not Reportable 03/18/22 16:03 Helmet Cells Not Reportable 03/18/22 16:03 Webster-Nibley Bodies Not Reportable 03/18/22 16:03 [place] Rings Not Reportable 03/18/22 16:03 [place] Cells Not Reportable 03/18/22 16:03 Bite Cells Not Reportable 03/18/22 16:03 Crenated Cell Not Reportable 03/18/22 16:03 Elliptocytes Not Reportable 03/18/22 16:03 Acanthocytes (Spur) Not Reportable 03/18/22 16:03 Rouleaux Not Reportable 03/18/22 16:03 Hemoglobin C Crystals Not Reportable 03/18/22 16:03 Schistocytes Not Reportable 03/18/22 16:03 Malaria parasites Not Reportable 03/18/22 16:03 Kali Bodies Not Reportable 03/18/22 16:03 Hem Pathologist Commnt No 03/18/22 16:03 PT 15.2 Sec. (12.2-14.9) H 03/16/22 18:13 INR 1.08 (0.87-1.13) 03/16/22 18:13 APTT 31.8 Sec. (24.2-36.6) 03/16/22 18:13 Thrombin Time 22.4 Sec. (15.1-19.6) H 03/16/22 18:13 Sodium 140 mmol/L (137-145) D 03/20/22 14:00 Potassium 3.0 mmol/L (3.6-5.0) L 03/20/22 14:00 Chloride 105.6 mmol/L (98-107) 03/20/22 14:00 Carbon Dioxide 22 mmol/L (22-30) 03/20/22 14:00 Anion Gap 15 mmol/L 03/20/22 14:00 BUN 33 mg/dL (7-17) H 03/20/22 14:00 Creatinine 1.4 mg/dL (0.6-1.2) H 03/20/22 14:00 Estimated GFR 38 ml/min 03/20/22 14:00 BUN/Creatinine Ratio 24 % 03/20/22 14:00 Glucose 240 mg/dL (65-100) H 03/20/22 14:00 POC Glucose 100 mg/dL (70-105) 03/21/22 23:14 Lactic Acid 1.90 mmol/L (0.7-2.0) 03/16/22 21:38 Calcium 7.8 mg/dL (8.4-10.2) L 03/20/22 14:00 Total Bilirubin 0.60 mg/dL (0.1-1.2) 03/16/22 18:13 AST 34 units/L (5-40) 03/16/22 18:13 ALT 22 units/L (7-56) 03/16/22 18:13 Alkaline Phosphatase 130 units/L (35-129) H 03/16/22 18:13 Total Creatine Kinase 454 units/L (30-135) H 03/16/22 18:13 CK-MB (CK-2) 7.0 ng/mL (0.0-4.0) H 03/16/22 18:13 CK-MB (CK-2) Rel Index 1.5 (0-4) 03/16/22 18:13 Troponin T 0.145 ng/mL (0.00-0.029) H* 03/16/22 18:13 Total Protein 7.1 g/dL (6.3-8.2) 03/16/22 18:13 Albumin 3.2 g/dL (3.9-5) L 03/16/22 18:13 Albumin/Globulin Ratio 0.8 % 03/16/22 18:13 Triglycerides 216 mg/dL (2-149) H 03/16/22 18:13 Cholesterol 126 mg/dL (50-199) 03/16/22 18:13 LDL Cholesterol Direct 53 mg/dL (50-130) 03/16/22 18:13 HDL Cholesterol 32 mg/dL (40-59) L 03/16/22 18:13 Cholesterol/HDL Ratio 3.93 % 03/16/22 18:13 Urine Color Yellow (Yellow) 03/16/22 16:49 Urine Turbidity Cloudy (Clear) 03/16/22 16:49 Specific [place] (Man) 1.030 (1.003-1.030) 03/16/22 16:49 Ur Protein (Man) 3+ mg/dL (Negative) 03/16/22 16:49 Ur Ketones (Man) 1+ (Negative) 03/16/22 16:49 Urine Bilirubin (Man) Large (Negative) 03/16/22 16:49 Urine WBC (Auto) 24.0 /HPF (0.0-6.0) H 03/16/22 16:49 Urine RBC (Auto) 14.0 /HPF (0.0-6.0) 03/16/22 16:49 U Epithel Cells (Auto) 16.0 /HPF (0-13.0) H 03/16/22 16:49 Urine Bacteria (Auto) 2+ /HPF (Negative) 03/16/22 16:49 Urine RBC (Manual) 1+ (Negative) 03/16/22 16:49 Calcium Oxalate Crystal 1+ 03/16/22 16:49 Amorphous Crystals 3+ 03/16/22 16:49 Urine Mucus Few /HPF 03/16/22 16:49 Nasal Screen MRSA (PCR) Negative (Negative) 03/18/22 15:00 Urine Opiates Screen Negative 03/16/22 16:49 Urine Methadone Screen Negative 03/16/22 16:49 Ur Barbiturates Screen Negative 03/16/22 16:49 Ur Phencyclidine Scrn Negative 03/16/22 16:49 Ur Amphetamines Screen Negative 03/16/22 16:49 U Benzodiazepines Scrn Negative 03/16/22 16:49 Urine Cocaine Screen Negative 03/16/22 16:49 U Marijuana (THC) Screen Negative 03/16/22 16:49 Drugs of Abuse Note Disclamer 03/16/22 16:49 Coronavirus (PCR) Negative (Negative) 03/19/22 10:52 Microbiology: Microbiology 03/17/22 10:35 Peripheral/Venous Blood Culture - Preliminary NO GROWTH AFTER 4 DAYS 03/17/22 10:35 Peripheral/Venous Blood Culture - Preliminary NO GROWTH AFTER 4 DAYS Hayes/IV: Voiding Method External Female Catheter Active Medications - Current Medications Current Medications: Generic Name Dose Route Start Last Admin Trade Name Freq PRN Reason Stop Dose Admin Acetaminophen 650 mg 03/16/22 23:01 Acetaminophen 325 Mg Tab PO Q4H PRN Pain MILD(1-3)/Fever >100.5/PINEDA Albuterol 2.5 mg 03/16/22 23:01 Albuterol 2.5 Mg/3 Ml Nebu IH Q3HRT PRN Shortness Of Breath Lipase/Protease/Amylase 1 each 03/21/22 09:27 Lipase 10,500/Protease 25,000/Amylase 43,750 (Units) Dr Cardona FEEDTUBE PRN PRN For Clogged Feeding Tube Atorvastatin Calcium 40 mg 03/17/22 22:00 03/21/22 21:41 Atorvastatin 40 Mg Tab PO 40 mg QHS DARIANA Administration Dextrose 0 ml 03/16/22 23:01 Dextrose 50% In Water (25gm) 50 Ml Syringe IV Q30MIN PRN Hypoglycemia Protocol Famotidine 20 mg 03/17/22 10:00 03/21/22 08:59 Famotidine 20 Mg/2 Ml Inj IV 20 mg QAM DARIANA Administration Cefepime HCl 1 gm in 100 mls @ 200 mls/hr 03/17/22 10:00 03/21/22 08:59 Cefepime/Ns 1 Gm/100 Ml IV 200 mls/hr Q24HR DARIANA Administration Protocol Dextrose 1,000 mls @ 75 mls/hr 03/17/22 12:00 03/20/22 18:10 D5w IV 75 mls/hr DIRECT DARIANA Administration Insulin Glargine 30 units 03/22/22 10:00 Insulin Glargine 100 Units/Ml SUB-Q QAM DARIANA Insulin Human Lispro 0 unit 03/17/22 00:00 03/22/22 07:02 Insulin Lispro 100 Unit/Ml SUB-Q Not Given Q6HR [facility] Protocol Morphine Sulfate 2 mg 03/16/22 23:01 Morphine 2 Mg/1 Ml Inj IV Q4H PRN Pain, Moderate (4-6) Morphine Sulfate 4 mg 03/16/22 23:01 Morphine 4 Mg/1 Ml Inj IV Q4H PRN Pain , Severe (7-10) Ondansetron HCl 4 mg 03/16/22 23:01 Ondansetron 4 Mg/2 Ml Inj IV Q8H PRN Nausea And Vomiting Simple Syrup 15 ml 03/21/22 09:27 Simple Syrup 15 Ml FEEDTUBE PRN PRN Hypoglycemia Simple Syrup 30 ml 03/21/22 09:27 Simple Syrup 15 Ml FEEDTUBE PRN PRN Hypoglycemia Sodium Bicarbonate 325 mg 03/21/22 09:27 Sodium Bicarbonate 325 Mg Tab FEEDTUBE PRN PRN For Clogged Feeding Tube Sodium Chloride 10 ml 03/17/22 10:00 03/21/22 21:41 Sodium Chloride 0.9% 10 Ml Flush Syringe IV 10 ml BID DARIANA Administration Sodium Chloride 10 ml 03/16/22 23:01 Sodium Chloride 0.9% 10 Ml Flush Syringe IV PRN PRN LINE FLUSH Nutrition/Malnutrition Assess - Dietary Evaluation Nutrition/Malnutrition Findings: Nutrition Notes Start: 03/17/22 12:20 Freq: Status: Active Protocol: Document 03/20/22 13:47 NEL (Rec: 03/20/22 13:53 [facility] [email or web address]) Nutrition Notes Initial or Follow up Reassessment Current Diagnosis Acute Kidney Injury,Diabetes, Sepsis,Heart Failure,Stroke Other Pertinent Diagnosis UTI, toxic metabolilc encephalopthy Current Diet NPO Labs/Tests POC Glu: 302 Pertinent Medications Reviewed Height 5 ft 5 in Weight 69.1 kg Fe [employer] Body Weight (kg) 56.81 BMI 25.3 Weight Status Appropriate Subjective/Other Information Pt is Day 4 NPO. PEG placement scheduled for today. Pt will be D/C'ed back to [place] once PEG tube placed. Burn Absent Trauma Absent #1 Nutrition Diagnosis Malnutrition Diagnosis Progress(for reassessment Continues documentation) Is patient on ventilator? No Is Patient Ambulatory and/or Out of Bed No REE-([facility]-confined to bed) [phone] Calculation Used for [facility]ations [facility] Additional Notes Pro needs 1-1.2g/k-83g/ day Fluid needs 1ml/kcal Nutrition Intervention Nutrition Support: Recommend Glucerna 1.2 at 50ml /hr once PEG placed and TF consult received by RD. Goal #1 Start EN support to meet nutrient needs Anticipated Discharge Needs: Continue EN support Follow-Up By: 03/23/22 Additional Comments F/U: PEG placement, TF consult
[2022-03-22] MEDS: FAMOTIDINE 20 MG/2 ML INJ IV SCH (11:00)
[2022-03-22] MEDS: INSULIN GLARGINE 100 UNITS/ML SUB-Q SCH (11:00)
[2022-03-23] MEDS: INSULIN LISPRO 100 UNIT/ML SUB-Q SCH ×2 (00:45→06:46)
[2022-03-23 05:10] LABS: Calcium 7.7 mg/dL (8.4-10.2)
--- NOTE | 2022-03-23 08:45 | Progress Note ---
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 Pt also reported to be tachycardia. This patient is non verbal from her previous stroke but manage to walk with communications assistant which she was not able to do today. No other modifying or associated factors reported. CT scan of the head showed 1. Multiple , prior cerebral insults identified, as described above. It would be difficult to evaluate for small areas of ischemia without diffusion imaging by MRI. Please clinically correlate. 2. Subtle area of increased attenuation in the right gangliocapsular region, as described above. Subsequently patient is seen and evaluated by telemetry neurology In the emergency room patient is found to have WBC of 22.4, also patient has UTI. Patient lactic acid is 3.30 and troponin is 0.145. Patient BUN 49 creatinine 2.5 Hospital Course: 03/17: Remains encephalopathic but she is protecting airway. VSS. CVA appears to be chronic based on image findings and clinical history . Presentaiton appears to be driven by UTI and metabolic derrangements. IVF+abx therapy initiated. Patient appears to be from home, [place]. Will go back there when medically stable. 03/18: Follows yes/no commands, nonverbal at baseline. daughter at bedside during encounter. Stated mother has not been having sufficient oral intake despite being clear for puree diet. ST eval currently pending. Consult to GI for PEG. MRI/BLANCA pending work up for CVA however still have low suspicion for new CVA. Sepsis/UTI/encephalopathy improved with IVF/Abx. Will follow neuro recs re: Antiplatelet strategy. Patient has a history of hemorrhagic cva in November 2021 per daughter and they were at the time told that the patient should not be on Aspirin. however, records from [facility] admission in January 2022 seem to indicate that she was placed on plavix at the time of d/c. ASA and plavix on hold at this time pending neurology recommendation. 03/19: NGT placed. NPO for now as GI may place PEG today or tomorrow. [facility]. 03/20: Plan for PEG tube today .can be discharged back to [facility] once PEG placed and confirmed to be functional. 03/21: S/p PEG tube placement. initiated on TF. Last dose Cefepime for tx of UTI today. Medical clear for d/c to [facility] with Rx. Discharge pending placement. 03/22: Per RN, high residuals after initiation of peg tube feeds. No BM reported in last 24hrs. Will order dulcolax [place] x 1. Medical clear for d/c to [facility]. Discharge pending placement. 03/23: Assessment and Plan: #Sepsis #Urinary tract infection #Toxic metabolic encephalopathy - confusion,weakness presentation appears to be largely driven by UTI, CVA ruled out - WBC: 22.4K, LA: 3.3-> 1.9, UA WBC 24. - Ucx, bcx, coronavirus test ordered - IVF: D5W at 75 cc/hr - Cefepime IV x 5 day. #History of CVA - history of CVA x 4 in past. Most recent was hemorrhagic cva in November 2021 and ischemic cva in January 2022. - CT imaging negative for acute findings - [facility] does not believe this is an acute cva - PT/OT ordered - Patient at baseline is nonverbal and has some gait instability. - NPO for now, may need ST eval for swallow evaluation, unclear what patient's baseline was [place]. - TTE pending - MRI brain pending - will follow tele neuro recommendation. - speech eval, recommend NPO - glucerna 35 cc/hr continuous feed goal with 200 cc FWF q4hr - s/p PEG placement on 03/20 by GI. #NSTEMI type II - troponin: 0.145 - likely driven by underlying sepsis -cardiology consulted #History of DVT/PE with IVC filter - per conversation with Dr Huerta, patient has a history of DVT/PE with IVC filter placement - anticoagulation is contraindicated in this patient. #Acute kidney injury due to vasomotor nephropathy #Hypernatremia - Na: 150, Cr: 2.5 on admission - likely volume depletion - hydration with hypotonic fluids: D5W ordered - avoid nephrotoxins - trend renal fx on bmp. Hospitalist Physical - Physical exam Narrative exam: Physical Exam: VITAL SIGNS: Reviewed. GENERAL: The patient appears normally developed, Vital signs as documented. Not in any distress, confused HEAD: No signs of head trauma. EYES: Pupils are equal. Extraocular motions intact. EARS: Hearing grossly intact. MOUTH: Oropharynx is normal. NECK: No adenopathy, no JVD. Nose: NG in place. CHEST: Chest with clear breath sounds bilaterally. No wheezes, rales, or rhonchi. CARDIAC: Regular rate and rhythm. S1 and S2, without murmurs, gallops, or rubs. VASCULAR: No Edema. Peripheral pulses normal and equal in all extremities. ABDOMEN: s/p peg. Soft, non tender and non distended. No rebound or guarding, and no masses palpated. Bowel Sounds normal. MUSCULOSKELETAL: Good range of motion of all major joints. Extremities without clubbing, cyanosis or edema. NEUROLOGIC EXAM: Confused, oriented x0. PSYCHIATRIC: Unable to assess SKIN: detail exam as documented in skin assessment - Constitutional Vitals: Temp Pulse Resp BP Pulse Ox 99 F 82 20 115/64 96 03/23/22 05:03 03/23/22 05:03 03/23/22 05:03 03/23/22 05:03 03/23/22 05:03 General appearance: Present: no acute distress, well-nourished HEART Score - HEART Score Troponin: Troponin T 0.145 ng/mL (0.00-0.029) H* 03/16/22 18:13 Results - Labs CBC & Chem 7: 03/20/22 14:00 03/23/22 04:28 Labs: Laboratory Last Values WBC 13.2 K/mm3 (4.5-11.0) H 03/20/22 14:00 RBC 2.97 M/mm3 (3.65-5.03) L 03/20/22 14:00 Hgb 8.7 gm/dl (10.1-14.3) L 03/20/22 14:00 Hct 25.6 % (30.3-42.9) L 03/20/22 14:00 MCV 86 fl (79-97) 03/20/22 14:00 MCH 29 pg (28-32) 03/20/22 14:00 MCHC 34 % (30-34) 03/20/22 14:00 RDW 14.7 % (13.2-15.2) 03/20/22 14:00 Plt Count 150 K/mm3 (140-440) 03/20/22 14:00 Lymph % (Auto) 7.1 % (13.4-35.0) L 03/20/22 14:00 [place] % (Auto) 4.0 % (0.0-7.3) 03/20/22 14:00 Eos % (Auto) 0.7 % (0.0-4.3) 03/20/22 14:00 Baso % (Auto) 0.1 % (0.0-1.8) 03/20/22 14:00 Lymph # (Auto) 0.9 K/mm3 (1.2-5.4) L 03/20/22 14:00 [place] # (Auto) 0.5 K/mm3 (0.0-0.8) 03/20/22 14:00 Eos # (Auto) 0.1 K/mm3 (0.0-0.4) 03/20/22 14:00 Baso # (Auto) 0.0 K/mm3 (0.0-0.1) 03/20/22 14:00 Add Manual Diff Complete 03/18/22 16:03 Total Counted 100 03/18/22 16:03 Seg Neutrophils % 88.1 % (40.0-70.0) H 03/20/22 14:00 Seg Neuts % (Manual) 96.0 % (40.0-70.0) H 03/18/22 16:03 Band Neutrophils % 0 % 03/18/22 16:03 Lymphocytes % (Manual) 3.0 % (13.4-35.0) L 03/18/22 16:03 Reactive Lymphs % (Man) 0 % 03/18/22 16:03 Monocytes % (Manual) 1.0 % (0.0-7.3) 03/18/22 16:03 Eosinophils % (Manual) 0 % (0.0-4.3) 03/18/22 16:03 Basophils % (Manual) 0 % (0.0-1.8) 03/18/22 16:03 Metamyelocytes % 0 % 03/18/22 16:03 Myelocytes % 0 % 03/18/22 16:03 Promyelocytes % 0 % 03/18/22 16:03 Blast Cells % 0 % 03/18/22 16:03 Nucleated RBC % Not Reportable 03/18/22 16:03 Seg Neutrophils # 11.6 K/mm3 (1.8-7.7) H 03/20/22 14:00 Seg Neutrophils # Man 17.1 K/mm3 (1.8-7.7) H 03/18/22 16:03 Band Neutrophils # 0.0 K/mm3 03/18/22 16:03 Lymphocytes # (Manual) 0.5 K/mm3 (1.2-5.4) L 03/18/22 16:03 Abs React Lymphs (Man) 0.0 K/mm3 03/18/22 16:03 Monocytes # (Manual) 0.2 K/mm3 (0.0-0.8) 03/18/22 16:03 Eosinophils # (Manual) 0.0 K/mm3 (0.0-0.4) 03/18/22 16:03 Basophils # (Manual) 0.0 K/mm3 (0.0-0.1) 03/18/22 16:03 Metamyelocytes # 0.0 K/mm3 03/18/22 16:03 Myelocytes # 0.0 K/mm3 03/18/22 16:03 Promyelocytes # 0.0 K/mm3 03/18/22 16:03 Blast Cells # 0.0 K/mm3 03/18/22 16:03 WBC Morphology Not Reportable 03/18/22 16:03 Hypersegmented Neuts Not Reportable 03/18/22 16:03 Hyposegmented Neuts Not Reportable 03/18/22 16:03 Hypogranular Neuts Not Reportable 03/18/22 16:03 Smudge Cells Not Reportable 03/18/22 16:03 Toxic Granulation Not Reportable 03/18/22 16:03 Toxic Vacuolation Not Reportable 03/18/22 16:03 Dohle Bodies Not Reportable 03/18/22 16:03 Pelger-Huet Anomaly Not Reportable 03/18/22 16:03 Patsy Rods Not Reportable 03/18/22 16:03 Platelet Estimate Consistent w auto 03/18/22 16:03 Clumped Platelets Not Reportable 03/18/22 16:03 Plt Clumps, EDTA Not Reportable 03/18/22 16:03 Large Platelets Not Reportable 03/18/22 16:03 Giant Platelets Not Reportable 03/18/22 16:03 Platelet Satelliting Not Reportable 03/18/22 16:03 Plt Morphology Comment Not Reportable 03/18/22 16:03 RBC Morphology Not Reportable 03/18/22 16:03 Dimorphic RBCs Not Reportable 03/18/22 16:03 Polychromasia Not Reportable 03/18/22 16:03 Hypochromasia Not Reportable 03/18/22 16:03 Poikilocytosis Not Reportable 03/18/22 16:03 Anisocytosis 1+ 03/18/22 16:03 Microcytosis Not Reportable 03/18/22 16:03 Macrocytosis Not Reportable 03/18/22 16:03 Spherocytes Not Reportable 03/18/22 16:03 Pappenheimer Bodies Not Reportable 03/18/22 16:03 Sickle Cells Not Reportable 03/18/22 16:03 Target Cells Not Reportable 03/18/22 16:03 Tear Drop Cells Not Reportable 03/18/22 16:03 Ovalocytes Not Reportable 03/18/22 16:03 Helmet Cells Not Reportable 03/18/22 16:03 [place] Bodies Not Reportable 03/18/22 16:03 [place] Rings Not Reportable 03/18/22 16:03 [place] Cells Not Reportable 03/18/22 16:03 Bite Cells Not Reportable 03/18/22 16:03 Crenated Cell Not Reportable 03/18/22 16:03 Elliptocytes Not Reportable 03/18/22 16:03 Acanthocytes (Spur) Not Reportable 03/18/22 16:03 Rouleaux Not Reportable 03/18/22 16:03 Hemoglobin C Crystals Not Reportable 03/18/22 16:03 Schistocytes Not Reportable 03/18/22 16:03 Malaria parasites Not Reportable 03/18/22 16:03 [place] Bodies Not Reportable 03/18/22 16:03 Hem Pathologist Commnt No 03/18/22 16:03 PT 15.2 Sec. (12.2-14.9) H 03/16/22 18:13 INR 1.08 (0.87-1.13) 03/16/22 18:13 APTT 31.8 Sec. (24.2-36.6) 03/16/22 18:13 Thrombin Time 22.4 Sec. (15.1-19.6) H 03/16/22 18:13 Sodium 138 mmol/L (137-145) 03/23/22 04:28 Potassium 3.8 mmol/L (3.6-5.0) D 03/23/22 04:28 Chloride 105.8 mmol/L (98-107) 03/23/22 04:28 Carbon Dioxide 21 mmol/L (22-30) L 03/23/22 04:28 Anion Gap 15 mmol/L 03/23/22 04:28 BUN 26 mg/dL (7-17) H 03/23/22 04:28 Creatinine 1.1 mg/dL (0.6-1.2) 03/23/22 04:28 Estimated GFR 50 ml/min 03/23/22 04:28 BUN/Creatinine Ratio 24 % 03/23/22 04:28 Glucose 133 mg/dL (65-100) H 03/23/22 04:28 POC Glucose 144 mg/dL (70-105) H 03/23/22 05:48 Lactic Acid 1.90 mmol/L (0.7-2.0) 03/16/22 21:38 Calcium 7.7 mg/dL (8.4-10.2) L 03/23/22 04:28 Total Bilirubin 0.60 mg/dL (0.1-1.2) 03/16/22 18:13 AST 34 units/L (5-40) 03/16/22 18:13 ALT 22 units/L (7-56) 03/16/22 18:13 Alkaline Phosphatase 130 units/L (35-129) H 03/16/22 18:13 Total Creatine Kinase 454 units/L (30-135) H 03/16/22 18:13 CK-MB (CK-2) 7.0 ng/mL (0.0-4.0) H 03/16/22 18:13 CK-MB (CK-2) Rel Index 1.5 (0-4) 03/16/22 18:13 Troponin T 0.145 ng/mL (0.00-0.029) H* 03/16/22 18:13 Total Protein 7.1 g/dL (6.3-8.2) 03/16/22 18:13 Albumin 3.2 g/dL (3.9-5) L 03/16/22 18:13 Albumin/Globulin Ratio 0.8 % 03/16/22 18:13 Triglycerides 216 mg/dL (2-149) H 03/16/22 18:13 Cholesterol 126 mg/dL (50-199) 03/16/22 18:13 LDL Cholesterol Direct 53 mg/dL (50-130) 03/16/22 18:13 HDL Cholesterol 32 mg/dL (40-59) L 03/16/22 18:13 Cholesterol/HDL Ratio 3.93 % 03/16/22 18:13 Urine Color Yellow (Yellow) 03/16/22 16:49 Urine Turbidity Cloudy (Clear) 03/16/22 16:49 Specific [place] (Man) 1.030 (1.003-1.030) 03/16/22 16:49 Ur Protein (Man) 3+ mg/dL (Negative) 03/16/22 16:49 Ur Ketones (Man) 1+ (Negative) 03/16/22 16:49 Urine Bilirubin (Man) Large (Negative) 03/16/22 16:49 Urine WBC (Auto) 24.0 /HPF (0.0-6.0) H 03/16/22 16:49 Urine RBC (Auto) 14.0 /HPF (0.0-6.0) 03/16/22 16:49 U Epithel Cells (Auto) 16.0 /HPF (0-13.0) H 03/16/22 16:49 Urine Bacteria (Auto) 2+ /HPF (Negative) 03/16/22 16:49 Urine RBC (Manual) 1+ (Negative) 03/16/22 16:49 Calcium Oxalate Crystal 1+ 03/16/22 16:49 Amorphous Crystals 3+ 03/16/22 16:49 Urine Mucus Few /HPF 03/16/22 16:49 Nasal Screen MRSA (PCR) Negative (Negative) 03/18/22 15:00 Urine Opiates Screen Negative 03/16/22 16:49 Urine Methadone Screen Negative 03/16/22 16:49 Ur Barbiturates Screen Negative 03/16/22 16:49 Ur Phencyclidine Scrn Negative 03/16/22 16:49 Ur Amphetamines Screen Negative 03/16/22 16:49 U Benzodiazepines Scrn Negative 03/16/22 16:49 Urine Cocaine Screen Negative 03/16/22 16:49 U Marijuana (THC) Screen Negative 03/16/22 16:49 Drugs of Abuse Note Disclamer 03/16/22 16:49 Coronavirus (PCR) Negative (Negative) 03/19/22 10:52 Microbiology: Microbiology 03/17/22 10:35 Peripheral/Venous Blood Culture - Final NO GROWTH AFTER 5 DAYS 03/17/22 10:35 Peripheral/Venous Blood Culture - Final NO GROWTH AFTER 5 DAYS Hayes/IV: Voiding Method External Female Catheter Active Medications - Current Medications Current Medications: Generic Name Dose Route Start Last Admin Trade Name Freq PRN Reason Stop Dose Admin Acetaminophen 650 mg 03/16/22 23:01 Acetaminophen 325 Mg Tab PO Q4H PRN Pain MILD(1-3)/Fever >100.5/PINEDA Albuterol 2.5 mg 03/16/22 23:01 Albuterol 2.5 Mg/3 Ml Nebu IH Q3HRT PRN Shortness Of Breath Lipase/Protease/Amylase 1 each 03/21/22 09:27 Lipase 10,500/Protease 25,000/Amylase 43,750 (Units) Dr Cardona FEEDTUBE PRN PRN For Clogged Feeding Tube Atorvastatin Calcium 40 mg 03/17/22 22:00 03/22/22 22:54 Atorvastatin 40 Mg Tab PO 40 mg QHS DARIANA Administration Dextrose 0 ml 03/16/22 23:01 Dextrose 50% In Water (25gm) 50 Ml Syringe IV Q30MIN PRN Hypoglycemia Protocol Famotidine 20 mg 03/17/22 10:00 03/22/22 11:00 Famotidine 20 Mg/2 Ml Inj IV 20 mg QAM DARIANA Administration Dextrose 1,000 mls @ 75 mls/hr 03/17/22 12:00 03/20/22 18:10 D5w IV 75 mls/hr DIRECT DARIANA Administration Insulin Glargine 30 units 03/22/22 10:00 03/22/22 11:00 Insulin Glargine 100 Units/Ml SUB-Q 30 units QAM DARIANA Administration Insulin Human Lispro 0 unit 03/17/22 00:00 03/23/22 06:46 Insulin Lispro 100 Unit/Ml SUB-Q Not Given Q6HR DARIANA Protocol Morphine Sulfate 2 mg 03/16/22 23:01 Morphine 2 Mg/1 Ml Inj IV Q4H PRN Pain, Moderate (4-6) Morphine Sulfate 4 mg 08/22/22 23:01 Morphine 4 Mg/1 Ml Inj IV Q4H PRN Pain , Severe (7-10) Ondansetron HCl 4 mg 03/16/22 23:01 Ondansetron 4 Mg/2 Ml Inj IV Q8H PRN Nausea And Vomiting Simple Syrup 15 ml 03/21/22 09:27 Simple Syrup 15 Ml FEEDTUBE PRN PRN Hypoglycemia Simple Syrup 30 ml 03/21/22 09:27 Simple Syrup 15 Ml FEEDTUBE PRN PRN Hypoglycemia Sodium Bicarbonate 325 mg 03/21/22 09:27 Sodium Bicarbonate 325 Mg Tab FEEDTUBE PRN PRN For Clogged Feeding Tube Sodium Chloride 10 ml 03/17/22 10:00 03/22/22 22:55 Sodium Chloride 0.9% 10 Ml Flush Syringe IV 10 ml BID DARIANA Administration Sodium Chloride 10 ml 03/16/22 23:01 Sodium Chloride 0.9% 10 Ml Flush Syringe IV PRN PRN LINE FLUSH Nutrition/Malnutrition Assess - Dietary Evaluation Nutrition/Malnutrition Findings: Nutrition Notes Start: 03/17/22 12:20 Freq: Status: Active Protocol: Document 03/20/22 13:47 NEL (Rec: 03/20/22 13:53 [email or web address] [id number]) Nutrition Notes Initial or Follow up Reassessment Current Diagnosis Acute Kidney Injury,Diabetes, Sepsis,Heart Failure,Stroke Other Pertinent Diagnosis UTI, toxic metabolilc encephalopthy Current Diet NPO Labs/Tests POC Glu: 302 Pertinent Medications Reviewed Height 5 ft 5 in Weight 69.1 kg [place] Body Weight (kg) 56.81 BMI 25.3 Weight Status Appropriate Subjective/Other Information Pt is Day 4 NPO. PEG placement scheduled for today. Pt will be D/C'ed back to [place] once PEG tube placed. Burn Absent Trauma Absent #1 Nutrition Diagnosis Malnutrition Diagnosis Progress(for reassessment Continues documentation) Is patient on ventilator? No Is Patient Ambulatory and/or Out of Bed No REE-([facility]-confined to bed) 1518.278 Calculation Used for Recommendations [facility] Additional Notes Pro needs 1-1.2g/k-83g/ day Fluid needs 1ml/kcal Nutrition Intervention Nutrition Support: Recommend Glucerna 1.2 at 50ml /hr once PEG placed and TF consult received by ARUNA. Goal #1 Start EN support to meet nutrient needs Anticipated Discharge Needs: Continue EN support Follow-Up By: 03/23/22 Additional Comments F/U: PEG placement, TF consult
[2022-03-23] MEDS: INSULIN GLARGINE 100 UNITS/ML SUB-Q SCH (10:31)
[2022-03-23] MEDS: FAMOTIDINE 20 MG/2 ML INJ IV SCH (10:31)
--- NOTE | 2022-03-23 11:43 | Discharge Summary ---
Providers - Providers Date of Admission: 03/16/22 23:01 Date of discharge: 03/23/22 Attending physician: DOLORES SHARMA MD 03/16/22 Consult to Physician [CONS] Routine Comment: Consulting Provider: LUPE GARCIA Physician Instructions: Reason For Exam: elevated troponin 03/16/22 23:01 Consult to Dietitian/Nutrition [CONS] Routine Physician Instructions: Reason For Exam: Reason for Consult: Diet education Occupational Therapy Evaluate and Treat [CONS] Routine Comment: Reason For Exam: Neuro deficits Physical Therapy Evaluation and Treat [CONS] Routine Comment: Reason For Exam: Neuro deficits 03/16/22 23:06 Consult to Physician [CONS] Routine Comment: Consulting Provider: ZO VALDEZ Physician Instructions: Reason For Exam: cva 03/18/22 08:22 Speech Therapy Evaluation and Treat [CONS] Routine Reason For Exam: Swallow Screen 03/18/22 11:38 Consult to Physician [CONS] Routine Comment: Consulting Provider: LORENA FRANCOIS Physician Instructions: Reason For Exam: PEG tube 03/19/22 08:33 Speech Therapy Evaluation and Treat [CONS] Routine Reason For Exam: eval and tx 03/20/22 14:37 Consult to Wound/ET Nurse [CONS] Routine Reason For Exam: wound eval on sacrum Primary care physician: ARIAS PERKINS Hospitalization Reason for admission: altered mental status Condition: Stable Hospital course: History of present illness: 62 yo F with 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 Pt also reported to be tachycardia. 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 No other modifying or associated factors reported. CT scan of the head showed 1. Multiple , prior cerebral insults identified, as described above. It would be difficult to evaluate for small areas of ischemia without diffusion imaging by MRI. Please clinically correlate. 2. Subtle area of increased attenuation in the right gangliocapsular region, as described above. Subsequently patient is seen and evaluated by telemetry neurology In the emergency room patient is found to have WBC of 22.4, also patient has UTI. Patient lactic acid is 3.30 and troponin is 0.145. Patient BUN 49 creatinine 2.5 Hospital Course: 03/17: Remains encephalopathic but she is protecting airway. VSS. CVA appears to be chronic based on image findings and clinical history . Presentaiton appears to be driven by UTI and metabolic derrangements. IVF+abx therapy initiated. Patient appears to be from RN home, [place]. Will go back there when medically stable. 03/18: Follows yes/no commands, nonverbal at baseline. daughter at bedside during encounter. Stated mother has not been having sufficient oral intake despite being clear for puree diet. ST eval currently pending. Consult to GI for PEG. MRI/BLANCA pending work up for CVA however still have low suspicion for new CVA. Sepsis/UTI/encephalopathy improved with IVF/Abx. Will follow neuro recs re: Antiplatelet strategy. Patient has a history of hemorrhagic cva in November 2021 per daughter and they were at the time told that the patient should not be on Aspirin. however, records from [facility] admission in January 2022 seem to indicate that she was placed on plavix at the time of d/c. ASA and plavix on hold at this time pending neurology recommendation. 03/19: NGT placed. NPO for now as GI may place PEG today or tomorrow. Plan for return back to [facility] once placed. 03/20: Plan for PEG tube today .can be discharged back to [facility] once PEG placed and confirmed to be functional. 03/21: S/p PEG tube placement. initiated on TF. Last dose Cefepime for tx of UTI today. Medical clear for d/c to [facility] with Rx. Discharge pending placement. 03/22: Per RN, high residuals after initiation of peg tube feeds. No BM reported in last 24hrs. Will order dulcolax [place] x 1. Medical clear for d/c to [facility]. Discharge pending placement. 03/23: Appears to be tolerating tf. Awaiting placement. Assessment and Plan: #Sepsis #Urinary tract infection #Toxic metabolic encephalopathy - confusion,weakness presentation appears to be largely driven by UTI, CVA ruled out - WBC: 22.4K, LA: 3.3-> 1.9, UA WBC 24. - Ucx, bcx, coronavirus test ordered - IVF: D5W at 75 cc/hr - Cefepime IV x 5 day. #History of CVA - history of CVA x 4 in past. Most recent was hemorrhagic cva in November 2021 and ischemic cva in January 2022. - CT imaging negative for acute findings - [facility] does not believe this is an acute cva - PT/OT ordered - Patient at baseline is nonverbal and has some gait instability. - NPO for now, may need ST eval for swallow evaluation, unclear what patient's baseline was SUPERINTENDENT. - TTE pending - MRI brain pending - will follow tele neuro recommendation. - speech eval, recommend NPO - glucerna 35 cc/hr continuous feed goal with 200 cc FWF q4hr - s/p PEG placement on 03/20 by GI. #NSTEMI type II - troponin: 0.145 - likely driven by underlying sepsis -cardiology consulted #History of DVT/PE with IVC filter - per conversation with Dr Huerta, patient has a history of DVT/PE with IVC filter placement - anticoagulation is contraindicated in this patient. #Acute kidney injury due to vasomotor nephropathy #Hypernatremia - Na: 150, Cr: 2.5 on admission - likely volume depletion - hydration with hypotonic fluids: D5W ordered - avoid nephrotoxins - trend renal fx on bmp. Disposition: 03 DETENTION FACILITY Final Discharge Diagnosis (Prints w/discharge instructions): Acute metabolic encephalopathy, sepsis POA, uti, chronic cva Time spent for discharge: 35 Core Measure Documentation - Palliative Care Palliative Care/ Comfort Measures: Not Applicable - Core Measures Any of the following diagnoses?: none Exam - Physical Exam Narrative exam: Physical Exam: VITAL SIGNS: Reviewed. GENERAL: The patient appears normally developed, Vital signs as documented. Not in any distress, confused HEAD: No signs of head trauma. EYES: Pupils are equal. Extraocular motions intact. EARS: Hearing grossly intact. MOUTH: Oropharynx is normal. NECK: No adenopathy, no JVD. Nose: NG in place. CHEST: Chest with clear breath sounds bilaterally. No wheezes, rales, or rhonchi. CARDIAC: Regular rate and rhythm. S1 and S2, without murmurs, gallops, or rubs. VASCULAR: No Edema. Peripheral pulses normal and equal in all extremities. ABDOMEN: s/p peg. Soft, non tender and non distended. No rebound or guarding, and no masses palpated. Bowel Sounds normal. MUSCULOSKELETAL: Good range of motion of all major joints. Extremities without clubbing, cyanosis or edema. NEUROLOGIC EXAM: Confused, oriented x0. PSYCHIATRIC: Unable to assess SKIN: detail exam as documented in skin assessment - Constitutional Vitals: Temp Pulse Resp BP Pulse Ox 99 F 82 20 115/64 96 03/23/22 05:03 03/23/22 05:03 03/23/22 05:03 03/23/22 05:03 03/23/22 05:03 Plan Follow up with: ARIAS PERKINS MD [Primary Care Provider] - 3-5 Days Prescriptions: AtorvaSTATin [Lipitor] 40 mg PO QHS 30 Days #30 tablet Insulin Glargine [Lantus VIAL] 30 units SUB-Q QAM 30 Days #3 vial
[2022-03-23 20:07] VITALS: BP 140/67
[2022-03-24] MEDS ORDERED: FAMOTIDINE 20 MG TAB FEEDTUBE SCH (10:00)
== END 2022-03-23 22:45 | DRG 871 ==
LOC: ED 16:34 → 4A 23:01
PROVIDERS: ADMIT Hospitalist; ATTEND Internal Medicine
PROC: 0DH63UZ Insertion of Feeding Device into Stomach, Percutaneous Approach (ICD-10-PCS; principal; 2022-03-20)
DX: A41.9 Sepsis, unspecified organism (principal); G92.8 Other toxic encephalopathy; I21.A1 Myocardial infarction type 2; N17.0 Acute kidney failure with tubular necrosis; N39.0 Urinary tract infection, site not specified; I69.354 Hemiplegia and hemiparesis following cerebral infarction affecting left non-dominant side; E87.0 Hyperosmolality and hypernatremia; E46 Unspecified protein-calorie malnutrition; Z20.822 Contact with and (suspected) exposure to COVID-19; I50.9 Heart failure, unspecified; E11.9 Type 2 diabetes mellitus without complications; I11.0 Hypertensive heart disease with heart failure; Z83.3 Family history of diabetes mellitus; Z82.49 Family history of ischemic heart disease and other diseases of the circulatory system; E03.9 Hypothyroidism, unspecified; G40.909 Epilepsy, unspecified, not intractable, without status epilepticus; R26.81 Unsteadiness on feet; R13.12 Dysphagia, oropharyngeal phase; Z68.25 Body mass index [BMI] 25.0-25.9, adult
CPT/HCPCS: 36415; 70450; 70496; 70498; 70551; 71045; 74018; 80048; 80053; 80061; 80307; 81001; 82140; 82550; 82553; 82962; 84484; 85007; 85025; 85610; 85670; 85730; 87040; 87086; 87116; 87641; 93005; 94640; 99291; 99292; G0378; J3490; Q9967; J0692; J1644; J1815; J2704; J3010; J7030; J7040; J7070; U0003

== ENCOUNTER 2022-04-09 04:13 | Inpatient (IN) | payer OTHER ==
[2022-04-09] MEDS ORDERED: SODIUM CHLORIDE 0.9% 1000 ML 1,000 ML IV ONE (04:28)
[2022-04-09] MEDS ORDERED: cefTRIAXone/NS 1 GM/50 ML 1 GM/50 ML BAG IV ONE (04:29)
--- NOTE | 2022-04-09 05:16 | XRay Report ---
CHEST 1 VIEW INDICATION / CLINICAL INFORMATION: cough, hypoxia. COMPARISON: None available. FINDINGS: SUPPORT DEVICES: Implanted vehicle monitor technician left chest wall stable. HEART / MEDIASTINUM: Heart size is within normal limits. Mediastinal contour demonstrates no signific ant abnormality. LUNGS / PLEURA: Prominence of bilateral hilar structures is slightly increased since comparison study . Lungs are clear. BONES: No significant osseous abnormality. ADDITIONAL FINDINGS: No significant additional findings. IMPRESSION: 1. Interval increase in bilateral hilar prominence. This may simple reflect crowding in the setting o f low lung volumes, underlying adenopathy not excluded. CT chest recommended for further evaluation. Signer Name: Jorje Rodas II, MD Signed: 04/09/2022 5:12 AM Workstation Name: [id number]
[2022-04-09 05:40] LABS: INR 0.95 (0.87-1.13)
[2022-04-09 05:46] LABS: Basophils % (Auto) 0.2 % (0.0-1.8); Eosinophils # (Auto) 0.3 K/mm3 (0.0-0.4); Eosinophils % (Auto) 2.7 % (0.0-4.3); Hematocrit 20.4 % (30.3-42.9); Hemoglobin 6.2 gm/dl (10.1-14.3); Lymphocytes # (Auto) 1.5 K/mm3 (1.2-5.4); Lymphocytes % (Auto) 13.3 % (13.4-35.0); Mean Corpuscular HGB Conc 30 % (30-34); Mean Corpuscular Volume 90 fl (79-97); Monocytes # (Auto) 0.7 K/mm3 (0.0-0.8); Monocytes % (Auto) 6.5 % (0.0-7.3); Platelet Count 333 K/mm3 (140-440); Red Blood Count 2.27 M/mm3 (3.65-5.03); Red Cell Distribution Width 16.4 % (13.2-15.2)
[2022-04-09 06:02] LABS: Alanine Aminotransferase 23 units/L (7-56); Albumin 2.3 g/dL (3.9-5); BUN/Creatinine Ratio 32; Blood Urea Nitrogen 29 mg/dL (7-17); Hemolysis Index 6
--- NOTE | 2022-04-09 06:20 | Emergency Department Report ---
<GAURANG VALDERRAMA - Last Filed: 04/09/22 10:04> ED Fever HPI - General Chief Complaint: Fever Stated Complaint: FEVER Time Seen by Provider: 04/09/22 04:25 ED Past Medical Hx - Medications Home Medications: Home Medications Medication Instructions Recorded Confirmed Last Taken Type Amlodipine Besylate [Norvasc] 5 mg PO DAILY 03/18/22 04/09/22 Unknown History Atorvastatin [Lipitor] 80 mg PO QHS 03/18/22 04/09/22 Unknown History Cholecalciferol Vit D3 [Vitamin D3 1,000 unit PO QDAY 03/18/22 04/09/22 Unknown History 1,000 UNIT TAB] Clopidogrel [Plavix] 75 mg PO QDAY 03/18/22 04/09/22 Unknown History Duloxetine HCl [Drizalma Sprinkle] 30 mg PO BID 03/18/22 04/09/22 Unknown History Levothyroxine [Synthroid] 88 mcg PO QAM 03/18/22 04/09/22 Unknown History Metoprolol Xl [Metoprolol 50 mg PO BID 03/18/22 04/09/22 Unknown History SUCCINATE ER TAB] levETIRAcetam [Keppra TAB] 750 mg PO BID 03/18/22 04/09/22 Unknown History AtorvaSTATin [Lipitor] 40 mg PO QHS 30 Days #30 tablet 03/23/22 04/09/22 Unknown Rx Insulin Glargine [Lantus VIAL] 30 units SUB-Q QAM units 03/23/22 04/09/22 Unknown Rx Insulin Glargine [Lantus VIAL] 30 units SUB-Q QAM 30 Days #3 vial 03/23/22 04/09/22 Unknown Rx ED Course - Reevaluation(s) Reevaluation #1: 04/09/22 07:42 This patient assigned to me at shift change 06:00 AM-- while waiting for CT chest abd/pel -- Lab reviewed and noted very low H&H 6.2/20.4, with hypernatremia 150 mg/dl likely as a result of dehydration-- UA is still pending at this point for possible infectious source-- will transfuse 1 unit pRBC in the meantime- - Consultations Consultation #1: 04/09/22 09:05 I called and spoke with Dr Chris He who accept this patient for Dr Caden Napier and wanted GI to be consulted on this case. Consultation #2: 04/09/22 10:04 Dr Clark consulted who plan to visit with patient ED Medical Decision Making - Lab Data Result diagrams: 04/09/22 05:06 04/09/22 05:06 - Radiology Data FINDINGS: CHEST: LOWER NECK: Soft tissues and musculature of the lower neck demonstrate no significant abnormality. The thyroid demonstrates no significant abnormality. THORACIC AORTA: Mild atherosclerotic calcification without acute abnormality. PULMONARY ARTERY: The main pulmonary artery is enlarged suggesting a component of pulmonary arterial hypertension. HEART: No significant abnormality. CORONARY ARTERY CALCIFICATION: Present -- Severe. MEDIASTINUM / FABIOLA: No significant abnormality. ESOPHAGUS: No significant abnormality. LYMPH NODES: The lack of intravenous contrast precludes evaluation of the bilateral fabiola. There is suggested right hilar adenopathy that may in part reflect pulmonary vasculature, this measures up to 14 mm short axis. Enlarged right paratracheal lymph noted measuring 11 to 12 mm short axis is present. Additional superior right paratracheal lymph nodes of borderline size to minimally enlarged. AP window lymph nodes measure up to 12 mm short axis. Left hilar lymph nodes measuring up to 14-15 mm short axis not excluded. Left hilum also partially obscured secondary to lack of contrast. LUNGS: Nodular airspace attenuation within the lower lobes likely in part reflects atelectasis. PLEURA: No pleural effusion. No pneumothorax. THORACIC SOFT TISSUES: No significant abnormality of the chest wall or upper thoracic musculature. OSSEOUS STRUCTURES: No acute osseous findings. No definite osseous metastatic disease. Nuclear medicine bone scan would be a more sensitive modality for evaluation. UPPER ABDOMEN: Multiple metastatic lesions within the liver. ADDITIONAL CHEST FINDINGS: None. IMPRESSION: 1. Bilateral hilar adenopathy is suggested but not well-visualized secondary to lack of contrast. Additional mediastinal adenopathy is present as detailed. Given the findings within abdomen, metastatic disease is not excluded. 2. Nodular airspace attenuation within the posterior sulci may in part reflect atelectasis. No discrete pulmonary nodules are otherwise demonstrated. - Medical Decision Making Fever of Unknown with non acute findings on CT chest and abdomen-- this likely could be viral origin-- will check Covid 19. However with her anemia of 6.2 below her usual baseline at between 8-9 mg/dl will start transfusion and get this patient admitted. ED Disposition Clinical Impression: Hypernatremia, Pancreatic mass, Hilar adenopathy Anemia Qualifiers: Anemia type: unspecified type Qualified Code(s): D64.9 - Anemia, unspecified Fever Qualifiers: Fever type: unspecified Qualified Code(s): R50.9 - Fever, unspecified Disposition: 09 ADMITTED INPATIENT Is pt being admited?: Yes Does the pt Need Aspirin: No Condition: Stable Time of Disposition: 09:08 <MICAELAADELITAMARK - Last Filed: 04/11/22 06:06> ED Fever HPI - General PUI?: No Source: patient Exam Limitations: no limitations - History of Present Illness Initial Comments: From [facility]. Fever 102.1. Currently on 3rd day of abx for UTI. Bedridden, nonverbal. Patient given Tyl 650 around 4am. Timing/Duration: just prior to arrival Fever Severity/Quality: greater than 102 F Fever Therapy [employer]: none Associated Symptoms: denies: denies symptoms, abdominal pain, chest pain ED Review of Systems ROS: Stated complaint: FEVER Other details as noted in HPI Constitutional: denies: chills, fever Eyes: denies: eye pain, eye discharge, vision change ENT: denies: ear pain, throat pain Respiratory: denies: cough, shortness of breath, wheezing Cardiovascular: denies: chest pain, palpitations Endocrine: no symptoms reported Gastrointestinal: denies: abdominal pain, nausea, diarrhea Genitourinary: denies: urgency, dysuria, discharge Musculoskeletal: denies: back pain, joint swelling, arthralgia Skin: denies: rash, lesions Neurological: denies: headache, weakness, paresthesias Psychiatric: denies: anxiety, depression Hematological/Lymphatic: denies: easy bleeding, easy bruising ED Past Medical Hx - Past Medical History Hx Hypertension: Yes (CHF) Hx CVA: Yes Hx Heart Attack/AMI: Yes (NSTEMI type II) Hx Congestive Heart Failure: Yes Hx Diabetes: Yes Hx Renal Disease: Yes (UTI and OSMAN) Hx Sickle Cell Disease: No - Social History Smoking Status: Never Smoker ED Physical Exam - General Limitations: Physical Limitation General appearance: lethargic - Head Head exam: Present: atraumatic, normocephalic - Eye Eye exam: Present: normal appearance - ENT ENT exam: Present: mucous membranes dry - Respiratory Respiratory exam: Present: normal lung sounds bilaterally. Absent: respiratory distress - Cardiovascular Cardiovascular Exam: Present: normal rhythm, tachycardia. Absent: systolic murmur, diastolic murmur, rubs, gallop - GI/Abdominal GI/Abdominal exam: Present: soft, normal bowel sounds - Extremities Exam Extremities exam: Present: normal inspection - Back Exam Back exam: Present: normal inspection - Neurological Exam Neurological exam: Present: alert, oriented X3 - Psychiatric Psychiatric exam: Present: normal affect, normal mood - Skin Skin exam: Present: warm, dry, intact, normal color. Absent: rash ED Course Vital Signs 04/09/22 04/09/22 04/09/22 04:19 08:34 09:20 Temperature 102.1 F H Pulse Rate 82 82 Respiratory 17 20 Rate Blood Pressure 129/77 Blood Pressure 121/66 [Left] O2 Sat by Pulse 100 100 98 Oximetry 04/09/22 04/09/22 04/09/22 10:24 11:33 11:48 Temperature 98.3 F Pulse Rate 80 79 78 Respiratory 21 22 24 Rate Blood Pressure 123/71 119/72 Blood Pressure 124/68 [Left] O2 Sat by Pulse 98 97 97 Oximetry 04/09/22 04/09/22 04/09/22 11:54 12:01 12:11 Temperature Pulse Rate 78 77 76 Respiratory 27 H 24 28 H Rate Blood Pressure 122/71 Blood Pressure [Left] O2 Sat by Pulse 96 97 97 Oximetry 04/09/22 12:14 Temperature Pulse Rate 72 Respiratory 22 Rate Blood Pressure 122/76 Blood Pressure [Left] O2 Sat by Pulse 98 Oximetry ED Medical Decision Making - Lab Data Result diagrams: 04/10/22 04:00 04/10/22 04:00 - EKG Data EKG shows normal: sinus rhythm Rate: tachycardia - EKG Data Interpretation: no acute changes - Radiology Data Radiology results: report reviewed, image reviewed - Medical Decision Making SEPSIS WORK UP DONE ABX FLUIDS AND HANDED OVER TO DR Harvey AT [address] AND ua FOLOW UP AND DISPO Critical care attestation.: If time is entered above; I have spent that time in minutes in the direct care of this critically ill patient, excluding procedure time.
--- NOTE | 2022-04-09 07:27 | Cat Scan Report ---
CT ABDOMEN AND PELVIS WITH CONTRAST INDICATION / CLINICAL INFORMATION: FEVER. TECHNIQUE: Axial CT images were obtained through the abdomen and pelvis after IV contrast. All CT sc ans at this location are performed using CT dose reduction for ALARA by means of automated exposure c ontrol. COMPARISON: CT chest same date. FINDINGS: LOWER CHEST: Please see comparison study of the chest for findings within the chest. LIVER: There are too numerous to count metastatic lesions throughout the liver some of which have socorro tral hypoattenuation suggesting necrosis. The largest of these within the right hepatic lobe measures up to 3.5 cm, image #31; series #2. Portal vein is patent. GALLBLADDER / BILE DUCTS: Gallbladder is mildly distended and demonstrates high attenuation material within the fundus thought reflect vicarious excretion of contrast. No stones are identified. Biliary ducts are not well-visualized. SPLEEN: No significant abnormality. PANCREAS: Moderately large pancreatic mass measuring 3.4 x 3.1 x 4.0 cm is centered within the head o f the pancreas and distal pancreatic body. Proximal to this mass there is ductal dilatation of the ma in pancreatic duct as well as pancreatic atrophy. This is most concerning for adenocarcinoma of the p ancreas. Tumor abuts the SMV and effaces the SMV portal confluence resulting in moderate stenosis. Ad ditional encasement of the common as well as proper hepatic artery suggested. SMA demonstrates no inv olvement. ADRENALS: Adrenals demonstrate very minimal nodularity left adrenal measuring 9 mm. KIDNEYS/URETERS: No stones or hydronephrosis. No solid renal lesion. STOMACH / DUODENUM / SMALL BOWEL: Percutaneous gastrostomy tube is present. The stomach, duodenum, an d small bowel demonstrate no acute pathology. Incidental note is made of jose luis mesentery COLON: No significant abnormality. APPENDIX: No significant abnormality. PERITONEUM: No free air or free fluid are present within the abdomen or pelvis. LYMPH NODES: Enlarged portacaval lymph nodes measuring 12 x 13 mm short axis. Additional portal hepat ic lymph nodes are enlarged measuring up to 10-11 mm short axis. Lymph nodes within the gallbladder f alfred measuring up to 8 mm short axis. AORTA / ARTERIES: No significant abnormality. IVC / VEINS: IVC filter present. URINARY BLADDER: No significant abnormality. REPRODUCTIVE ORGANS: No significant abnormality. SKELETAL SYSTEM: No definite osseous metastatic disease. No acute fractures. ADDITIONAL ABDOMINAL/PELVIC FINDINGS: Metastatic lesion along the left pelvic sidewall within the lef t internal obturator muscle is thought likely. Additional ill-defined groundglass attenuation at the bifurcation of the aorta is nonspecific in appearance uncertain etiology. IMPRESSION: 1. Probable pancreatic adenocarcinoma involving head and distal body the pancreas with effacement and encasement of the SMV portal venous/splenic venous confluence resulting in moderate stenosis. Additi onal at least partial encasement of the hepatic arteries is suggested. SMA appears uninvolved. 2. Extensive hepatic metastatic disease. 3. Expansile appearance of the left internal obturator muscle suggest metastatic involvement. 4. Enlarged portacaval, sanjay hepatis, and upper abdominal lymph nodes likely metastatic. Signer Name: Jorje Rodas II, MD Signed: 04/09/2022 7:23 AM Workstation Name: [id number]
--- NOTE | 2022-04-09 07:35 | Cat Scan Report ---
CT CHEST WITHOUT CONTRAST INDICATION / CLINICAL INFORMATION: FEVER. TECHNIQUE: Axial CT images were obtained through the chest without contrast. All CT scans at this [facility] ation are performed using CT dose reduction for ALARA by means of automated exposure control. COMPARISON: CT abdomen and pelvis same date. FINDINGS: CHEST: LOWER NECK: Soft tissues and musculature of the lower neck demonstrate no significant abnormality. Th e thyroid demonstrates no significant abnormality. THORACIC AORTA: Mild atherosclerotic calcification without acute abnormality. PULMONARY ARTERY: The main pulmonary artery is enlarged suggesting a component of pulmonary arterial hypertension. HEART: No significant abnormality. CORONARY ARTERY CALCIFICATION: Present -- Severe. MEDIASTINUM / JIM: No significant abnormality. ESOPHAGUS: No significant abnormality. LYMPH NODES: The lack of intravenous contrast precludes evaluation of the bilateral jim. There is gonzalez ggested right hilar adenopathy that may in part reflect pulmonary vasculature, this measures up to 14 mm short axis. Enlarged right paratracheal lymph noted measuring 11 to 12 mm short axis is present. Additional superior right paratracheal lymph nodes of borderline size to minimally enlarged. AP windo w lymph nodes measure up to 12 mm short axis. Left hilar lymph nodes measuring up to 14-15 mm short a xis not excluded. Left hilum also partially obscured secondary to lack of contrast. LUNGS: Nodular airspace attenuation within the lower lobes likely in part reflects atelectasis. PLEURA: No pleural effusion. No pneumothorax. THORACIC SOFT TISSUES: No significant abnormality of the chest wall or upper thoracic musculature. OSSEOUS STRUCTURES: No acute osseous findings. No definite osseous metastatic disease. Nuclear medici ne bone scan would be a more sensitive modality for evaluation. UPPER ABDOMEN: Multiple metastatic lesions within the liver. ADDITIONAL CHEST FINDINGS: None. IMPRESSION: 1. Bilateral hilar adenopathy is suggested but not well-visualized secondary to lack of contrast. Add itional mediastinal adenopathy is present as detailed. Given the findings within abdomen, metastatic disease is not excluded. 2. Nodular airspace attenuation within the posterior sulci may in part reflect atelectasis. No discre te pulmonary nodules are otherwise demonstrated. Signer Name: Jorje Rodas II, MD Signed: 04/09/2022 7:30 AM Workstation Name: [id number]
[2022-04-09 07:37] LABS: Chol/HDL Ratio 1.97 %; HDL Cholesterol 39 mg/dL (40-59); LDL Cholesterol,Direct 23 mg/dL (50-130)
[2022-04-09] MEDS ORDERED: SODIUM CHLORIDE 0.9% 500 ML 500 ML IV ONE ×2 (07:40→12:00)
[2022-04-09 08:12] LABS: Amorphous Crystals,Urine Few; Color,Urine Yellow (Yellow); Mucus,Urine FEW /HPF
[2022-04-09] MEDS ORDERED: KETOROLAC 30 MG/1 ML INJ IV ONE (08:56)
[2022-04-09] MEDS ORDERED: ONDANSETRON 4 MG/2 ML INJ IV PRN ×2 (09:09→12:19)
[2022-04-09] MEDS ORDERED: MORPHINE 2 MG/1 ML INJ IV PRN (09:09)
[2022-04-09] MEDS ORDERED: ACETAMINOPHEN 325 MG TAB PO PRN ×2 (09:09→12:19)
--- NOTE | 2022-04-09 11:56 | History and Physical Report ---
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 Patient reportedly had a fever of 102.1 today which prompted the visit to the emergency room. Patient was seen at [facility] on Wednesday and diagnosed with a UTI and discharged from the ED at that time with antibiotics for which she is on her third day. Patient is bed ridden and only gives one-word responses such as yes and no. Patient had a recent hospitalization from 03/14 3-02/2029 for sepsis/UTI and where PEG tube was placed. All imaging and labs were reviewed. Patient had abnormal findings with leukocytosis, anemia hemoglobin 6.2, hyponatremia with a sodium of 150. CT scan shows no evidence of pneumonia but does reveal some hilar adenopathy. Chest x-ray negative for pneumonia. Past History Past Medical History: DVT, stroke Past Surgical History: No surgical history Social history: no significant social history Family history: no significant family history Medications and Allergies Allergies Allergy/AdvReac Type Severity Reaction Status Date / Time Fish Containing Products Allergy Rash Verified 04/09/22 09:26 Home Medications Medication Instructions Recorded Confirmed Last Taken Type Amlodipine Besylate [Norvasc] 5 mg PO DAILY 03/18/22 03/18/22 Unknown History Atorvastatin [Lipitor Tab] 80 mg PO QHS 03/18/22 03/18/22 Unknown History Cholecalciferol Vit D3 [Vitamin D3 1,000 unit PO QDAY 03/18/22 03/18/22 Unknown History 1,000 UNIT TAB] Clopidogrel [Plavix] 75 mg PO QDAY 03/18/22 03/18/22 Unknown History Duloxetine HCl [Drizalma Sprinkle] 30 mg PO BID 03/18/22 03/18/22 Unknown History Levothyroxine [Synthroid] 88 mcg PO QAM 03/18/22 03/18/22 Unknown History Metoprolol Xl [Toprol Xl] 50 mg PO BID 03/18/22 03/18/22 Unknown History levETIRAcetam [Keppra TAB] 750 mg PO BID 03/18/22 03/18/22 Unknown History AtorvaSTATin [Lipitor] 40 mg PO QHS 30 Days #30 tablet 03/23/22 Unknown Rx Insulin Glargine [Lantus VIAL] 30 units SUB-Q QAM units 03/23/22 Unknown Rx Insulin Glargine [Lantus VIAL] 30 units SUB-Q QAM 30 Days #3 vial 03/23/22 Unknown Rx Active Meds: Active Medications Acetaminophen (Acetaminophen 325 Mg Tab) 650 mg PO Q4H PRN PRN Reason: Pain MILD(1-3)/Fever >100.5/PINEDA Sodium Chloride (Nacl 0.9% 500 Ml) 500 mls @ 0 mls/hr IV ONCE ONE Stop: 04/09/22 12:01 Morphine Sulfate (Morphine 2 Mg/1 Ml Inj) 2 mg IV Q4H PRN PRN Reason: Pain, Moderate (4-6) Ondansetron HCl (Ondansetron 4 Mg/2 Ml Inj) 4 mg IV Q8H PRN PRN Reason: Nausea And Vomiting Sodium Chloride (Sodium Chloride 0.9% 10 Ml Flush Syringe) 10 ml IV BID [facility] Last Admin: 04/09/22 09:39 Dose: 10 ml Sodium Chloride (Sodium Chloride 0.9% 10 Ml Flush Syringe) 10 ml IV PRN PRN PRN Reason: LINE FLUSH Review of Systems ROS unobtainable: due to mental status Exam - Constitutional Vitals: Temp Pulse Resp BP Pulse Ox 98.3 F 79 22 123/71 97 04/09/22 11:33 04/09/22 11:33 04/09/22 11:33 04/09/22 11:33 04/09/22 11:33 General appearance: Present: no acute distress, well-nourished - EENT Eyes: Present: PERRL ENT: hearing intact, clear oral mucosa - Neck Neck: Present: supple, normal ROM - Respiratory Respiratory effort: normal Respiratory: bilateral: CTA - Cardiovascular Heart Sounds: Present: S1 & S2. Absent: rub, click - Extremities Extremities: pulses symmetrical, No edema Peripheral Pulses: within normal limits - Abdominal General gastrointestinal: Present: soft, non-tender, non-distended, normal bowel sounds Female genitourinary: Present: normal - Integumentary Integumentary: Present: clear, warm, dry - Musculoskeletal Musculoskeletal: gait normal, strength equal bilaterally - Psychiatric Psychiatric: appropriate mood/affect, intact judgment & insight - Neurologic Neurologic: CNII-XII intact, moves all extremities HEART Score - HEART Score Troponin: Troponin T 0.109 ng/mL (0.00-0.029) H* 04/09/22 05:06 Results - Labs CBC & Chem 7: 04/09/22 05:06 04/09/22 05:06 Labs: Laboratory Last Values WBC 11.1 K/mm3 (4.5-11.0) H 04/09/22 05:06 RBC 2.27 M/mm3 (3.65-5.03) L 04/09/22 05:06 Hgb 6.2 gm/dl (10.1-14.3) L 04/09/22 05:06 Hct 20.4 % (30.3-42.9) L 04/09/22 05:06 MCV 90 fl (79-97) 04/09/22 05:06 MCH 27 pg (28-32) L 04/09/22 05:06 MCHC 30 % (30-34) 04/09/22 05:06 RDW 16.4 % (13.2-15.2) H 04/09/22 05:06 Plt Count 333 K/mm3 (140-440) 04/09/22 05:06 Lymph % (Auto) 13.3 % (13.4-35.0) L 04/09/22 05:06 [place] % (Auto) 6.5 % (0.0-7.3) 04/09/22 05:06 Eos % (Auto) 2.7 % (0.0-4.3) 04/09/22 05:06 Baso % (Auto) 0.2 % (0.0-1.8) 04/09/22 05:06 Lymph # (Auto) 1.5 K/mm3 (1.2-5.4) 04/09/22 05:06 [place] # (Auto) 0.7 K/mm3 (0.0-0.8) 04/09/22 05:06 Eos # (Auto) 0.3 K/mm3 (0.0-0.4) 04/09/22 05:06 Baso # (Auto) 0.0 K/mm3 (0.0-0.1) 04/09/22 05:06 Seg Neutrophils % 77.3 % (40.0-70.0) H 04/09/22 05:06 Seg Neutrophils # 8.6 K/mm3 (1.8-7.7) H 04/09/22 05:06 PT 14.0 Sec. (12.2-14.9) 04/09/22 05:06 INR 0.95 (0.87-1.13) 04/09/22 05:06 Sodium 150 mmol/L (137-145) H 04/09/22 05:06 Potassium 3.9 mmol/L (3.6-5.0) 04/09/22 05:06 Chloride 112.8 mmol/L (98-107) H 04/09/22 05:06 Carbon Dioxide 26 mmol/L (22-30) 04/09/22 05:06 Anion Gap 15 mmol/L 04/09/22 05:06 BUN 29 mg/dL (7-17) H 04/09/22 05:06 Creatinine 0.9 mg/dL (0.6-1.2) 04/09/22 05:06 Estimated GFR > 60 ml/min 04/09/22 05:06 BUN/Creatinine Ratio 32 % 04/09/22 05:06 Glucose 156 mg/dL (65-100) H 04/09/22 05:06 Ketones Quantitative Negative (Negative) 04/09/22 05:06 Lactic Acid 1.80 mmol/L (0.7-2.0) 04/09/22 05:06 Calcium 8.0 mg/dL (8.4-10.2) L 04/09/22 05:06 Total Bilirubin 0.20 mg/dL (0.1-1.2) 04/09/22 05:06 AST 26 units/L (5-40) 04/09/22 05:06 ALT 23 units/L (7-56) 04/09/22 05:06 Alkaline Phosphatase 136 units/L (35-129) H 04/09/22 05:06 Total Creatine Kinase 49 units/L (30-135) 04/09/22 05:06 Troponin T 0.109 ng/mL (0.00-0.029) H* 04/09/22 05:06 C-Reactive Protein 13.00 mg/dL (0.00-1.30) H 04/09/22 05:06 NT-Pro-B Natriuret Pep 607.9 pg/mL (0-900) 04/09/22 05:06 Total Protein 5.8 g/dL (6.3-8.2) L 04/09/22 05:06 Albumin 2.3 g/dL (3.9-5) L 04/09/22 05:06 Albumin/Globulin Ratio 0.7 % 04/09/22 05:06 Triglycerides 111 mg/dL (2-149) 04/09/22 05:06 Cholesterol 77 mg/dL (50-199) 04/09/22 05:06 LDL Cholesterol Direct 23 mg/dL (50-130) L 04/09/22 05:06 HDL Cholesterol 39 mg/dL (40-59) L 04/09/22 05:06 Cholesterol/HDL Ratio 1.97 % 04/09/22 05:06 Urine Color Yellow (Yellow) 04/09/22 07:54 Urine Turbidity Slightly cloudy (Clear) 04/09/22 07:54 Specific [place] (Man) 1.015 (1.003-1.030) 04/09/22 07:54 Ur Protein (Man) Negative mg/dL (Negative) 04/09/22 07:54 Ur Ketones (Man) Negative (Negative) 04/09/22 07:54 Ur Nitrite (Man) Negative (Negative) 04/09/22 07:54 Ur Reducing Substances Not Reportable 04/09/22 07:54 Urine Bilirubin (Man) Negative (Negative) 04/09/22 07:54 Urine Ictotest Not Reportable 04/09/22 07:54 Leukocyte Esterase (Man) Negative (Negative) 04/09/22 07:54 Urine WBC (Auto) 3.0 /HPF (0.0-6.0) 04/09/22 07:54 Urine RBC (Auto) 1.0 /HPF (0.0-6.0) 04/09/22 07:54 U Epithel Cells (Auto) 13.0 /HPF (0-13.0) 04/09/22 07:54 Urine RBC (Manual) Negative (Negative) 04/09/22 07:54 Amorphous Crystals Few 04/09/22 07:54 Urine Mucus Few /HPF 04/09/22 07:54 Blood Type A POSITIVE 04/09/22 07:50 Antibody Screen Negative 04/09/22 07:50 Crossmatch See Detail 04/09/22 07:50 Microbiology: Microbiology 04/09/22 06:04 Peripheral/Venous Blood Culture - Preliminary Culture in Progress 04/09/22 05:06 Peripheral/Venous Blood Culture - Preliminary Culture in Progress Assessment and Plan Assessment and plan: Probable pancreatic adenocarcinoma CT scan reveals probable pancreatic adenocarcinoma involving head and distal body of the pancreas with effacement and encasement of the SMV portal venous/splenic venous confluence resulting in moderate stenosis. Extensive hepatic metastatic disease. Heme/onc evaluation. GI consultation pending. Check CA 199 tumor marker SIRS. The patient meets criteria given the fever and tachypnea but no documented source of infection We will follow-up blood cultures. Chest x-ray is negative. Fever likely related to tumor History of CVA - history of CVA x 4 in past. Most recent was hemorrhagic cva in November 2021 and ischemic cva in January 2022. - PT/OT ordered - Patient at baseline is nonverbal and has some gait instability. - s/p PEG placement on 03/20 by GI. Chronically Elaveted troponin History of DVT/PE with IVC filter - per conversation with Dr Huerta, patient has a history of DVT/PE with IVC filter placement - anticoagulation is contraindicated in this patient. Hypernatremia - Na: 150 - likely volume depletion - hydration with hypotonic fluids: D5W ordered - avoid nephrotoxins - trend renal fx on bmp.
[2022-04-09] MEDS ORDERED: MORPHINE 4 MG/1 ML INJ IV PRN (12:23)
--- NOTE | 2022-04-09 13:37 | Hem/Onc Consultation ---
History of Present Illness - Reason for Consult Consult date: 04/09/22 Pancreatic cancer/anemia - History of Present Illness Heme/Onc consult note Seen via [facility] CPT 53957 Dx Pancreatic Adenocarcinoma This is a 62yo female who presented to [facility] ED from [place] [facility] with chief complaint of fever. 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 Patient reportedly had a fever of 102.1 today which prompted the visit to the emergency room. Patient was seen at [facility] on Wednesday and diagnosed with a UTI and discharged from the ED at that time with antibiotics for which she is on her third day. Patient is bed ridden and only gives one-word responses such as yes and no. Patient had a recent hospitalization from 03/14 3-02/2029 for sepsis/UTI and where PEG tube was placed. Upon arrival to ED, labs noted with leukocytosis and anemia hemoglobin 6.2. Oncology was consulted for evaluation of pancreatic cancer. Chest CT 04/09/22: bilateral hilar adenopathy, mediastinal adenopathy. Nodular airspace attenuation within the posterior sulci may reflect atelectasis. No discrete pulmonary nodules. Abd/Pel CT 04/09/22: probable pancreatic adenocarcinoma involving head and distal body of the pancreas with effacement anc encasement of the SMV portal venous/splenic venous confluence resulting in moderate stenosis. Additional at least partial encasement of the hepatic arteries is suggested. SMA appears uninvolved. -extensive metastatic disease -expansile appearance of the left internal obturator muscle suggest metastatic involvement. -enlarged portacaval, sanjay hepatis, and upper abdominal lymph nodes likely metastatic. Patient examined at bedside, asleep, accompanied by daughter and family. CT scan results, labs, and prognosis discussed with family. Daughter verbalized preference in pancreatic biopsy to obtain official diagnosis. Daughter also verbalized Hospice after biopsy. DATA REVIEWED IMP: Presumed pancreatic adenocarcinoma with metastasis Normocytic anemia likely secondary to malignancy PLAN: Transfuse 1 unit pRBC whenever HCT <23 Pancreatic mass biopsy as per daughters request Patient would not be a candidate for anti tumor therapy End of life/Hospice discussion is appropriate from Oncology perspective Case d/w Dr. Tyron Castro. Laboratory Last Values WBC 11.1 K/mm3 (4.5-11.0) H 04/09/22 05:06 Hgb 6.2 gm/dl (10.1-14.3) L 04/09/22 05:06 Hct 20.4 % (30.3-42.9) L 04/09/22 05:06 MCV 90 fl (79-97) 04/09/22 05:06 Plt Count 333 K/mm3 (140-440) 04/09/22 05:06 Lymph % (Auto) 13.3 % (13.4-35.0) L 04/09/22 05:06 Seg Neutrophils % 77.3 % (40.0-70.0) H 04/09/22 05:06 Seg Neutrophils # 8.6 K/mm3 (1.8-7.7) H 04/09/22 05:06 PT 14.0 Sec. (12.2-14.9) 04/09/22 05:06 INR 0.95 (0.87-1.13) 04/09/22 05:06 Creatinine 0.9 mg/dL (0.6-1.2) 04/09/22 05:06 Total Bilirubin 0.20 mg/dL (0.1-1.2) 04/09/22 05:06 AST 26 units/L (5-40) 04/09/22 05:06 ALT 23 units/L (7-56) 04/09/22 05:06 Alkaline Phosphatase 136 units/L (35-129) H 04/09/22 05:06 Total Creatine Kinase 49 units/L (30-135) 04/09/22 05:06 Troponin T 0.109 ng/mL (0.00-0.029) H* 04/09/22 05:06 C-Reactive Protein 13.00 mg/dL (0.00-1.30) H 04/09/22 05:06 Total Protein 5.8 g/dL (6.3-8.2) L 04/09/22 05:06 Albumin 2.3 g/dL (3.9-5) L 04/09/22 05:06 Amorphous Crystals Few 04/09/22 07:54 Urine Mucus Few /HPF 04/09/22 07:54 Blood Type A POSITIVE 04/09/22 07:50 Antibody Screen Negative 04/09/22 07:50 Crossmatch See Detail 04/09/22 07:50 Past History Past Medical History: DVT, stroke Past Surgical History: No surgical history Social history: no significant social history Family history: no significant family history Medications and Allergies Allergies Allergy/AdvReac Type Severity Reaction Status Date / Time Fish Containing Products Allergy Rash Verified 04/09/22 09:26 Home Medications Medication Instructions Recorded Confirmed Last Taken Type Amlodipine Besylate [Norvasc] 5 mg PO DAILY 03/18/22 03/18/22 Unknown History Atorvastatin [Lipitor Tab] 80 mg PO QHS 03/18/22 03/18/22 Unknown History Cholecalciferol Vit D3 [Vitamin D3 1,000 unit PO QDAY 03/18/22 03/18/22 Unknown History 1,000 UNIT TAB] Clopidogrel [Plavix] 75 mg PO QDAY 03/18/22 03/18/22 Unknown History Duloxetine HCl [Drizalma Sprinkle] 30 mg PO BID 03/18/22 03/18/22 Unknown History Levothyroxine [Synthroid] 88 mcg PO QAM 03/18/22 03/18/22 Unknown History Metoprolol Xl [Toprol Xl] 50 mg PO BID 03/18/22 03/18/22 Unknown History levETIRAcetam [Keppra TAB] 750 mg PO BID 03/18/22 03/18/22 Unknown History AtorvaSTATin [Lipitor] 40 mg PO QHS 30 Days #30 tablet 03/23/22 Unknown Rx Insulin Glargine [Lantus VIAL] 30 units SUB-Q QAM units 03/23/22 Unknown Rx Insulin Glargine [Lantus VIAL] 30 units SUB-Q QAM 30 Days #3 vial 03/23/22 Unknown Rx Active Meds: Active Medications Acetaminophen (Acetaminophen 325 Mg Tab) 650 mg PO Q4H PRN PRN Reason: Pain MILD(1-3)/Fever >100.5/PINEDA Acetaminophen (Acetaminophen 325 Mg Tab) 650 mg PO Q4H PRN PRN Reason: Pain MILD(1-3)/Fever >100.5/PINEDA Morphine Sulfate (Morphine 2 Mg/1 Ml Inj) 2 mg IV Q4H PRN PRN Reason: Pain, Moderate (4-6) Morphine Sulfate (Morphine 4 Mg/1 Ml Inj) 4 mg IV Q4H PRN PRN Reason: Pain , Severe (7-10) Ondansetron HCl (Ondansetron 4 Mg/2 Ml Inj) 4 mg IV Q8H PRN PRN Reason: Nausea And Vomiting Ondansetron HCl (Ondansetron 4 Mg/2 Ml Inj) 4 mg IV Q8H PRN PRN Reason: Nausea And Vomiting Sodium Chloride (Sodium Chloride 0.9% 10 Ml Flush Syringe) 10 ml IV BID [facility] Last Admin: 04/09/22 09:39 Dose: 10 ml Sodium Chloride (Sodium Chloride 0.9% 10 Ml Flush Syringe) 10 ml IV PRN PRN PRN Reason: LINE FLUSH Sodium Chloride (Sodium Chloride 0.9% 10 Ml Flush Syringe) 10 ml IV BID [facility] Sodium Chloride (Sodium Chloride 0.9% 10 Ml Flush Syringe) 10 ml IV PRN PRN PRN Reason: LINE FLUSH Exam - Constitutional Vitals: Last Vital Signs Temp 98.3 F 04/09/22 13:15 Pulse 74 04/09/22 13:15 Resp 20 04/09/22 13:15 BP 123/68 04/09/22 13:15 Pulse Ox 100 04/09/22 13:15 Results - Labs lab Results: Laboratory Results - last 24 hr 04/09/22 04/09/22 04/09/22 05:06 05:06 05:06 WBC 11.1 H RBC 2.27 L Hgb 6.2 L Hct 20.4 L MCV 90 MCH 27 L MCHC 30 RDW 16.4 H Plt Count 333 Lymph % (Auto) 13.3 L [place] % (Auto) 6.5 Eos % (Auto) 2.7 Baso % (Auto) 0.2 Lymph # (Auto) 1.5 [place] # (Auto) 0.7 Eos # (Auto) 0.3 Baso # (Auto) 0.0 Seg Neutrophils % 77.3 H Seg Neutrophils # 8.6 H PT 14.0 INR 0.95 Sodium 150 H Potassium 3.9 Chloride 112.8 H Carbon Dioxide 26 Anion Gap 15 BUN 29 H Creatinine 0.9 Estimated GFR > 60 BUN/Creatinine Ratio 32 Glucose 156 H Ketones Quantitative Negative Lactic Acid Calcium 8.0 L Total Bilirubin 0.20 AST 26 ALT 23 Alkaline Phosphatase 136 H Total Creatine Kinase 49 Troponin T 0.109 H* C-Reactive Protein NT-Pro-B Natriuret Pep 607.9 Total Protein 5.8 L Albumin 2.3 L Albumin/Globulin Ratio 0.7 Triglycerides 111 Cholesterol 77 LDL Cholesterol Direct 23 L HDL Cholesterol 39 L Cholesterol/HDL Ratio 1.97 Urine Color Urine Turbidity Specific [place] (Man) Ur Protein (Man) Ur Ketones (Man) Ur Nitrite (Man) Ur Reducing Substances Urine Bilirubin (Man) Urine Ictotest Leukocyte Esterase (Man) Urine WBC (Auto) Urine RBC (Auto) U Epithel Cells (Auto) Urine RBC (Manual) Amorphous Crystals Urine Mucus Blood Type Antibody Screen Crossmatch 04/09/22 04/09/22 04/09/22 05:06 05:06 07:50 WBC RBC Hgb Hct MCV MCH MCHC RDW Plt Count Lymph % (Auto) [place] % (Auto) Eos % (Auto) Baso % (Auto) Lymph # (Auto) [place] # (Auto) Eos # (Auto) Baso # (Auto) Seg Neutrophils % Seg Neutrophils # PT INR Sodium Potassium Chloride Carbon Dioxide Anion Gap BUN Creatinine Estimated GFR BUN/Creatinine Ratio Glucose Ketones Quantitative Lactic Acid 1.80 Calcium Total Bilirubin AST ALT Alkaline Phosphatase Total Creatine Kinase Troponin T C-Reactive Protein 13.00 H NT-Pro-B Natriuret Pep Total Protein Albumin Albumin/Globulin Ratio Triglycerides Cholesterol LDL Cholesterol Direct HDL Cholesterol Cholesterol/HDL Ratio Urine Color Urine Turbidity Specific [place] (Man) Ur Protein (Man) Ur Ketones (Man) Ur Nitrite (Man) Ur Reducing Substances Urine Bilirubin (Man) Urine Ictotest Leukocyte Esterase (Man) Urine WBC (Auto) Urine RBC (Auto) U Epithel Cells (Auto) Urine RBC (Manual) Amorphous Crystals Urine Mucus Blood Type A POSITIVE Antibody Screen Negative Crossmatch See Detail 04/09/22 07:54 WBC RBC Hgb Hct MCV MCH MCHC RDW Plt Count Lymph % (Auto) [place] % (Auto) Eos % (Auto) Baso % (Auto) Lymph # (Auto) [place] # (Auto) Eos # (Auto) Baso # (Auto) Seg Neutrophils % Seg Neutrophils # PT INR Sodium Potassium Chloride Carbon Dioxide Anion Gap BUN Creatinine Estimated GFR BUN/Creatinine Ratio Glucose Ketones Quantitative Lactic Acid Calcium Total Bilirubin AST ALT Alkaline Phosphatase Total Creatine Kinase Troponin T C-Reactive Protein NT-Pro-B Natriuret Pep Total Protein Albumin Albumin/Globulin Ratio Triglycerides Cholesterol LDL Cholesterol Direct HDL Cholesterol Cholesterol/HDL Ratio Urine Color Yellow Urine Turbidity Slightly cloudy Specific [place] (Man) 1.015 Ur Protein (Man) Negative Ur Ketones (Man) Negative Ur Nitrite (Man) Negative Ur Reducing Substances Not Reportable Urine Bilirubin (Man) Negative Urine Ictotest Not Reportable Leukocyte Esterase (Man) Negative Urine WBC (Auto) 3.0 Urine RBC (Auto) 1.0 U Epithel Cells (Auto) 13.0 Urine RBC (Manual) Negative Amorphous Crystals Few Urine Mucus Few Blood Type Antibody Screen Crossmatch
--- NOTE | 2022-04-09 15:14 | Event Note ---
Date: 04/09/22 will see patient in AM reviewed cathay records (no abd imaging): 04/05/22 labs: Hgb 7.2 (hgb 01/2022 was 11) WBC12.2 Plts 301 Cr 0.89 AST - 58 ALT - 36 Alk phos - 116 Tbili [address] angio chest 02/05/22 FINDINGS: Acute pulmonary emboli demonstrated in the distal right pulmonary artery extending into the lobar branch to the right upper lobe, right lower lobe, and into segmental branches of the right upper lobe and right lower lobe. No definite left-sided pulmonary emboli. No focal consolidation or pleural effusion. Mild dependent opacities are most consistent with atelectasis. Mildly enlarged hilar, mediastinal lymph nodes are demonstrated, from unknown etiology. Heart is of normal size. No pericardial effusion. Straightening of the interventricular septum is demonstrated. Limited evaluation through the upper abdomen is unremarkable. Mild degenerative changes throughout the visualized spine. No acute fractures. IMPRESSION: 1. Acute pulmonary emboli demonstrated in the right lung, as above. 2. Straightening of the interventricular septum is demonstrated, consistent with a degree of right heart strain. MRI Brain 02/04/22 A large crescent of restricted diffusion with associated ADC mapping defect is present in the right gaming radiata and right putamen consistent with acute or early subacute infarction. The infarct contains some subacute T1 and T2 hyperintense blood products consistent with methemoglobin and a rim of T2 hypointense hemosiderin deposition. Some mild localized mass effect is demonstrated. Encephalomalacia and laminar necrosis rosales the site of a previous right posterior periatrial infarct. Moderate periventricular foci of T2 prolongation consistent with chronic microvascular ischemic change. No midline shift or extra-axial fluid collection. Marked basal ganglia and pontine T2 prolongation consistent with chronic microvascular ischemic change. Remote lacunar type infarcts left cerebellar hemisphere. No hydrocephalus. The larger intracranial flow voids are visualized. The basilar cisterns and aqueducts are maintained. The midline and sellar structures are preserved. Bone marrow signal intensity is maintained in the skull base and calvarium. Mild sphenoid sinus mucosal thickening. Remaining paranasal sinuses, orbits, and mastoids are clear. IMPRESSION: 1. Acute or early subacute infarct in the right gaming radiata extending into right putamen with some subacute blood products noted centrally and mild localized mass effect. 2. Remote right posterior periatrial infarct with encephalomalacia and laminar necrosis. 3. Marked chronic periventricular, basal ganglia, and pontine microvascular ischemic change. 4. Remote left cerebellar lacunar type infarcts.
[2022-04-10 05:20] LABS: BUN/Creatinine Ratio 34; Blood Urea Nitrogen 27 mg/dL (7-17); Calcium 7.9 mg/dL (8.4-10.2); Hemolysis Index 4
[2022-04-10 05:39] LABS: Basophils % (Auto) 0.1 % (0.0-1.8); Eosinophils # (Auto) 0.3 K/mm3 (0.0-0.4); Eosinophils % (Auto) 2.8 % (0.0-4.3); Hematocrit 25.7 % (30.3-42.9); Lymphocytes # (Auto) 1.2 K/mm3 (1.2-5.4); Mean Corpuscular HGB Conc 31 % (30-34); Mean Corpuscular Volume 88 fl (79-97); Monocytes # (Auto) 0.7 K/mm3 (0.0-0.8); Monocytes % (Auto) 6.4 % (0.0-7.3); Platelet Count 325 K/mm3 (140-440); Red Blood Count 2.94 M/mm3 (3.65-5.03); Red Cell Distribution Width 16.2 % (13.2-15.2)
--- NOTE | 2022-04-10 08:22 | Gastroenterology Consultation ---
History of Present Illness - Reason for Consult Consult date: 04/10/22 Anemia Requesting physician: GAURANG VALDERRAMA - History of Present Illness Patient nonverbal, history obtained from charts and speaking with nurse. GI was consulted for anemia. Of note, nursing staff report no GI blood loss. Patient responds no when I asked her if she is having any overt bleeding that she is aware of 62yo female who presented to [facility] ED from [facility] with chief complaint of fever. 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 Patient reportedly had a fever of 102.1 today which prompted the visit to the emergency room. Patient was seen at [facility] on Wednesday and diagnosed with a UTI and discharged from the ED at that time with antibiotics for which she is on her third day. Patient is bed ridden and only gives one-word responses such as yes and no. Obtained/updated/reviewed patient's current medications reviewed [place] records (no abd imaging): 04/05/22 labs: Hgb 7.2 (hgb 01/2022 was 11) WBC12.2 Plts 301 Cr 0.89 AST - 58 ALT - 36 Alk phos - 116 Tbili [address] angio chest 02/05/22 FINDINGS: Acute pulmonary emboli demonstrated in the distal right pulmonary artery extending into the lobar branch to the right upper lobe, right lower lobe, and into segmental branches of the right upper lobe and right lower lobe. No definite left-sided pulmonary emboli. No focal consolidation or pleural effusion. Mild dependent opacities are most consistent with atelectasis. Mildly enlarged hilar, mediastinal lymph nodes are demonstrated, from unknown etiology. Heart is of normal size. No pericardial effusion. Straightening of the interventricular septum is demonstrated. Limited evaluation through the upper abdomen is unremarkable. Mild degenerative changes throughout the visualized spine. No acute fractures. IMPRESSION: 1. Acute pulmonary emboli demonstrated in the right lung, as above. 2. Straightening of the interventricular septum is demonstrated, consistent with a degree of right heart strain. MRI Brain 02/04/22 A large crescent of restricted diffusion with associated ADC mapping defect is present in the right gaming radiata and right putamen consistent with acute or early subacute infarction. The infarct contains some subacute T1 and T2 hyperintense blood products consistent with methemoglobin and a rim of T2 hypointense hemosiderin deposition. Some mild localized mass effect is demonstrated. Encephalomalacia and laminar necrosis rosales the site of a previous right posterior periatrial infarct. Moderate periventricular foci of T2 prolongation consistent with chronic microvascular ischemic change. No midline shift or extra-axial fluid collection. Marked basal ganglia and pontine T2 prolongation consistent with chronic microvascular ischemic change. Remote lacunar type infarcts left cerebellar hemisphere. No hydrocephalus. The larger intracranial flow voids are visualized. The basilar cisterns and aqueducts are maintained. The midline and sellar structures are preserved. Bone marrow signal intensity is maintained in the skull base and calvarium. Mild sphenoid sinus mucosal thickening. Remaining paranasal sinuses, orbits, and mastoids are clear. IMPRESSION: 1. Acute or early subacute infarct in the right gaming radiata extending into right putamen with some subacute blood products noted centrally and mild localized mass effect. 2. Remote right posterior periatrial infarct with encephalomalacia and laminar necrosis. 3. Marked chronic periventricular, basal ganglia, and pontine microvascular ischemic change. 4. Remote left cerebellar lacunar type infarcts. Past History Past Medical History: DVT, stroke Past Surgical History: No surgical history Social history: no significant social history Family history: no significant family history Medications and Allergies Allergies Allergy/AdvReac Type Severity Reaction Status Date / Time Fish Containing Products Allergy Rash Verified 04/09/22 09:26 Home Medications Medication Instructions Recorded Confirmed Last Taken Type Amlodipine Besylate [Norvasc] 5 mg PO DAILY 03/18/22 04/09/22 Unknown History Atorvastatin [Lipitor Tab] 80 mg PO QHS 03/18/22 04/09/22 Unknown History Cholecalciferol Vit D3 [Vitamin D3 1,000 unit PO QDAY 03/18/22 04/09/22 Unknown History 1,000 UNIT TAB] Clopidogrel [Plavix] 75 mg PO QDAY 03/18/22 04/09/22 Unknown History Duloxetine HCl [Drizalma Sprinkle] 30 mg PO BID 03/18/22 04/09/22 Unknown History Levothyroxine [Synthroid] 88 mcg PO QAM 03/18/22 04/09/22 Unknown History Metoprolol Xl [Toprol Xl] 50 mg PO BID 03/18/22 04/09/22 Unknown History levETIRAcetam [Keppra TAB] 750 mg PO BID 03/18/22 04/09/22 Unknown History AtorvaSTATin [Lipitor] 40 mg PO QHS 30 Days #30 tablet 03/23/22 04/09/22 Unknown Rx Insulin Glargine [Lantus VIAL] 30 units SUB-Q QAM units 03/23/22 04/09/22 Unknown Rx Insulin Glargine [Lantus VIAL] 30 units SUB-Q QAM 30 Days #3 vial 03/23/22 04/09/22 Unknown Rx Active Meds: Active Medications Acetaminophen (Acetaminophen 325 Mg Tab) 650 mg PO Q4H PRN PRN Reason: Pain MILD(1-3)/Fever >100.5/PINEDA Morphine Sulfate (Morphine 2 Mg/1 Ml Inj) 2 mg IV Q4H PRN PRN Reason: Pain, Moderate (4-6) Morphine Sulfate (Morphine 4 Mg/1 Ml Inj) 4 mg IV Q4H PRN PRN Reason: Pain , Severe (7-10) Ondansetron HCl (Ondansetron 4 Mg/2 Ml Inj) 4 mg IV Q8H PRN PRN Reason: Nausea And Vomiting Sodium Chloride (Sodium Chloride 0.9% 10 Ml Flush Syringe) 10 ml IV BID DARIANA Last Admin: 04/09/22 21:48 Dose: 10 ml Sodium Chloride (Sodium Chloride 0.9% 10 Ml Flush Syringe) 10 ml IV PRN PRN PRN Reason: LINE FLUSH Review of Systems - Review of Systems ROS unobtainable: due to mental status Exam - Constitutional Vital Signs: Temp Pulse Resp BP Pulse Ox 99.2 F 75 17 137/68 99 04/10/22 03:22 04/10/22 03:22 04/10/22 03:22 04/10/22 03:22 04/10/22 03:22 General appearance: no acute distress - EENT Eyes: EOM intact - Neck Neck: supple - Respiratory Respiratory effort: other (Bilateral rhonchi) - Cardiovascular Rhythm: regular - Gastrointestinal General gastrointestinal: Present: soft, tender, other (G-tube in place) - Integumentary Integumentary: Present: dry - Neurologic Neurological: other (Patient only grunts yes or no, unable to fully assess mental status) - Psychiatric Psychiatric: cooperative - Labs CBC & Chem 7: 04/10/22 04:00 04/10/22 04:00 Lab Results: Laboratory Results - last 24 hr 04/09/22 04/09/22 04/09/22 05:06 07:50 16:18 WBC RBC Hgb Hct MCV MCH MCHC RDW Plt Count Lymph % (Auto) [place] % (Auto) Eos % (Auto) Baso % (Auto) Lymph # (Auto) [place] # (Auto) Eos # (Auto) Baso # (Auto) Seg Neutrophils % Seg Neutrophils # Sodium Potassium Chloride Carbon Dioxide Anion Gap BUN Creatinine Estimated GFR BUN/Creatinine Ratio Glucose POC Glucose 91 Ketones Quantitative Negative Calcium Blood Type A POSITIVE Antibody Screen Negative Crossmatch See Detail 04/10/22 04/10/22 04:00 04:00 WBC 11.6 H RBC 2.94 L Hgb 8.0 L Hct 25.7 L MCV 88 MCH 27 L MCHC 31 RDW 16.2 H Plt Count 325 Lymph % (Auto) 10.0 L [place] % (Auto) 6.4 Eos % (Auto) 2.8 Baso % (Auto) 0.1 Lymph # (Auto) 1.2 [place] # (Auto) 0.7 Eos # (Auto) 0.3 Baso # (Auto) 0.0 Seg Neutrophils % 80.7 H Seg Neutrophils # 9.3 H Sodium 147 H Potassium 4.3 Chloride 112.8 H Carbon Dioxide 25 Anion Gap 14 BUN 27 H Creatinine 0.8 Estimated GFR > 60 BUN/Creatinine Ratio 34 Glucose 82 POC Glucose Ketones Quantitative Calcium 7.9 L Blood Type Antibody Screen Crossmatch Assessment and Plan Patient with likely metastatic pancreatic adenocarcinoma with poor prognosis, complicated by pulmonary embolism and stroke Patient require EUS for biopsy of the pancreatic lesion per radiology. This cannot be performed at this facility and will require transferring to [facility] or other such tertiary care facility. This can be considered on outpatient setting given hospice plan unclear if would make any clinical difference in the patient's care Regarding the anemia, likely multifactorial No overt bleeding At this juncture unclear that the benefits of endoscopy would outweigh the risks given her medical comorbidities and clinical status and lack of overt bleeding. Therefore, recommend start patient on daily PPI monitor hemoglobin and if there is overt bleeding please call GI back for reevaluation of the risk-benefit profile of any endoscopic interventions GI will sign off please call us back if we can be of any further assistance - Patient Problems (1) Pulmonary embolism Current Visit: Yes Status: Acute (2) Anemia Current Visit: Yes Status: Acute Qualifiers: Anemia type: unspecified type Qualified Code(s): D64.9 - Anemia, unspecified (3) Pancreatic mass Current Visit: Yes Status: Acute (4) DVT prophylaxis Current Visit: No Status: Acute (5) Stroke Current Visit: No Status: Acute Qualifiers: CVA mechanism: unspecified Qualified Code(s): I63.9 - Cerebral infarction, unspecified
--- NOTE | 2022-04-10 10:26 | Progress Note ---
Assessment and Plan Assessment and plan: Probable pancreatic adenocarcinoma with metastasis Abd/Pel CT 04/09/22: probable pancreatic adenocarcinoma involving head and distal body of the pancreas with effacement anc encasement of the SMV portal venous/splenic venous confluence resulting in moderate stenosis. Additional at least partial encasement of the hepatic arteries is suggested. SMA appears uninvolved. -extensive metastatic disease -expansile appearance of the left internal obturator muscle suggest metastatic i nvolvement. -enlarged portacaval, sanjay hepatis, and upper abdominal lymph nodes likely metastatic. Oncology and GI following. Follow CA 199 tumor marker Patient would not be a candidate for anti tumor therapy End of life/Hospice discussion is appropriate from Oncology perspective SIRS. The patient meets criteria given the fever and tachypnea but no documented source of infection We will follow-up blood cultures. Chest x-ray is negative. Fever likely related to tumor Normocytic anemia likely secondary to malignancy. 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 Most recent was hemorrhagic cva in November 2021 and ischemic cva in January 2022. - PT/OT ordered - Patient at baseline is nonverbal and has some gait instability. - s/p PEG placement on 03/20 by GI. Chronically Elaveted troponin History of DVT/PE with IVC filter - per conversation with Dr Huerta, patient has a history of DVT/PE with IVC filter placement - anticoagulation is contraindicated in this patient. Hypernatremia - Na: 150 - likely volume depletion - hydration with hypotonic fluids: D5W ordered - avoid nephrotoxins - trend renal fx on bmp. 04/10/2022. Patient with likely metastatic pancreatic adenocarcinoma with poor prognosis, complicated by pulmonary embolism and stroke Patient require EUS for biopsy of the pancreatic lesion per radiology. This cannot be performed at this facility and will require transferring to [facility] or other such tertiary care facility. This can be considered on outpatient setting given hospice plan unclear if would make any clinical difference in the patient's care. I conveyed the oncology and GI recommendations with regards to hospice to both daughters. The daughters are in agreement with hospice at [place]. One of the daughters is a case monitor and has already reached out to [facility]. We will coordinate with our case man agement department. History Interval history: No new issues overnight Hospitalist Physical - Constitutional Vitals: Temp Pulse Resp BP Pulse Ox 99.7 F H 75 18 144/78 99 04/10/22 08:30 04/10/22 08:30 04/10/22 08:30 04/10/22 08:30 04/10/22 08:30 General appearance: Present: no acute distress, well-nourished - EENT Eyes: Present: PERRL, EOM intact ENT: hearing intact, clear oral mucosa, dentition normal - Neck Neck: Present: supple, normal ROM - Respiratory Respiratory effort: normal Respiratory: bilateral: CTA - Cardiovascular Rhythm: regular Heart Sounds: Present: S1 & S2. Absent: gallop, rub - Extremities Extremities: no ischemia, No edema, Full ROM - Abdominal General gastrointestinal: soft, non-tender, non-distended, normal bowel sounds - Integumentary Integumentary: Present: clear, warm, dry - Neurologic Neurologic: CNII-XII intact, moves all extremities HEART Score - HEART Score Troponin: Troponin T 0.109 ng/mL (0.00-0.029) H* 04/09/22 05:06 Results - Labs CBC & Chem 7: 04/10/22 04:00 04/10/22 04:00 Labs: Laboratory Last Values WBC 11.6 K/mm3 (4.5-11.0) H 04/10/22 04:00 RBC 2.94 M/mm3 (3.65-5.03) L 04/10/22 04:00 Hgb 8.0 gm/dl (10.1-14.3) L 04/10/22 04:00 Hct 25.7 % (30.3-42.9) L 04/10/22 04:00 MCV 88 fl (79-97) 04/10/22 04:00 MCH 27 pg (28-32) L 04/10/22 04:00 MCHC 31 % (30-34) 04/10/22 04:00 RDW 16.2 % (13.2-15.2) H 04/10/22 04:00 Plt Count 325 K/mm3 (140-440) 04/10/22 04:00 Lymph % (Auto) 10.0 % (13.4-35.0) L 04/10/22 04:00 [place] % (Auto) 6.4 % (0.0-7.3) 04/10/22 04:00 Eos % (Auto) 2.8 % (0.0-4.3) 04/10/22 04:00 Baso % (Auto) 0.1 % (0.0-1.8) 04/10/22 04:00 Lymph # (Auto) 1.2 K/mm3 (1.2-5.4) 04/10/22 04:00 [place] # (Auto) 0.7 K/mm3 (0.0-0.8) 04/10/22 04:00 Eos # (Auto) 0.3 K/mm3 (0.0-0.4) 04/10/22 04:00 Baso # (Auto) 0.0 K/mm3 (0.0-0.1) 04/10/22 04:00 Seg Neutrophils % 80.7 % (40.0-70.0) H 04/10/22 04:00 Seg Neutrophils # 9.3 K/mm3 (1.8-7.7) H 04/10/22 04:00 PT 14.0 Sec. (12.2-14.9) 04/09/22 05:06 INR 0.95 (0.87-1.13) 04/09/22 05:06 Sodium 147 mmol/L (137-145) H 04/10/22 04:00 Potassium 4.3 mmol/L (3.6-5.0) 04/10/22 04:00 Chloride 112.8 mmol/L (98-107) H 04/10/22 04:00 Carbon Dioxide 25 mmol/L (22-30) 04/10/22 04:00 Anion Gap 14 mmol/L 04/10/22 04:00 BUN 27 mg/dL (7-17) H 04/10/22 04:00 Creatinine 0.8 mg/dL (0.6-1.2) 04/10/22 04:00 Estimated GFR > 60 ml/min 04/10/22 04:00 BUN/Creatinine Ratio 34 % 04/10/22 04:00 Glucose 82 mg/dL (65-100) 04/10/22 04:00 POC Glucose 73 mg/dL (70-105) 04/10/22 06:35 Ketones Quantitative Negative (Negative) 04/09/22 05:06 Lactic Acid 1.80 mmol/L (0.7-2.0) 04/09/22 05:06 Calcium 7.9 mg/dL (8.4-10.2) L 04/10/22 04:00 Total Bilirubin 0.20 mg/dL (0.1-1.2) 04/09/22 05:06 AST 26 units/L (5-40) 04/09/22 05:06 ALT 23 units/L (7-56) 04/09/22 05:06 Alkaline Phosphatase 136 units/L (35-129) H 04/09/22 05:06 Total Creatine Kinase 49 units/L (30-135) 04/09/22 05:06 Troponin T 0.109 ng/mL (0.00-0.029) H* 04/09/22 05:06 C-Reactive Protein 13.00 mg/dL (0.00-1.30) H 04/09/22 05:06 NT-Pro-B Natriuret Pep 607.9 pg/mL (0-900) 04/09/22 05:06 Total Protein 5.8 g/dL (6.3-8.2) L 04/09/22 05:06 Albumin 2.3 g/dL (3.9-5) L 04/09/22 05:06 Albumin/Globulin Ratio 0.7 % 04/09/22 05:06 Triglycerides 111 mg/dL (2-149) 04/09/22 05:06 Cholesterol 77 mg/dL (50-199) 04/09/22 05:06 LDL Cholesterol Direct 23 mg/dL (50-130) L 04/09/22 05:06 HDL Cholesterol 39 mg/dL (40-59) L 04/09/22 05:06 Cholesterol/HDL Ratio 1.97 % 04/09/22 05:06 Urine Color Yellow (Yellow) 04/09/22 07:54 Urine Turbidity Slightly cloudy (Clear) 04/09/22 07:54 Specific [place] (Man) 1.015 (1.003-1.030) 04/09/22 07:54 Ur Protein (Man) Negative mg/dL (Negative) 04/09/22 07:54 Ur Ketones (Man) Negative (Negative) 04/09/22 07:54 Ur Nitrite (Man) Negative (Negative) 04/09/22 07:54 Ur Reducing Substances Not Reportable 04/09/22 07:54 Urine Bilirubin (Man) Negative (Negative) 04/09/22 07:54 Urine Ictotest Not Reportable 04/09/22 07:54 Leukocyte Esterase (Man) Negative (Negative) 04/09/22 07:54 Urine WBC (Auto) 3.0 /HPF (0.0-6.0) 04/09/22 07:54 Urine RBC (Auto) 1.0 /HPF (0.0-6.0) 04/09/22 07:54 U Epithel Cells (Auto) 13.0 /HPF (0-13.0) 04/09/22 07:54 Urine RBC (Manual) Negative (Negative) 04/09/22 07:54 Amorphous Crystals Few 04/09/22 07:54 Urine Mucus Few /HPF 04/09/22 07:54 Blood Type A POSITIVE 04/09/22 07:50 Antibody Screen Negative 04/09/22 07:50 Crossmatch See Detail 04/09/22 07:50 Microbiology: Microbiology 04/09/22 06:04 Peripheral/Venous Blood Culture - Preliminary NO GROWTH AFTER 24 HOURS 04/09/22 05:06 Peripheral/Venous Blood Culture - Preliminary NO GROWTH AFTER 24 HOURS Active Medications - Current Medications Current Medications: Generic Name Dose Route Start Last Admin Trade Name Freq PRN Reason Stop Dose Admin Acetaminophen 650 mg 04/09/22 12:19 Acetaminophen 325 Mg Tab PO Q4H PRN Pain MILD(1-3)/Fever >100.5/PINEDA Morphine Sulfate 2 mg 04/09/22 09:09 Morphine 2 Mg/1 Ml Inj IV Q4H PRN Pain, Moderate (4-6) Morphine Sulfate 4 mg 04/09/22 12:23 Morphine 4 Mg/1 Ml Inj IV Q4H PRN Pain , Severe (7-10) Ondansetron HCl 4 mg 04/09/22 12:19 Ondansetron 4 Mg/2 Ml Inj IV Q8H PRN Nausea And Vomiting Sodium Chloride 10 ml 04/09/22 22:00 04/09/22 21:48 Sodium Chloride 0.9% 10 Ml Flush Syringe IV 10 ml BID DARIANA Administration Sodium Chloride 10 ml 04/09/22 12:19 Sodium Chloride 0.9% 10 Ml Flush Syringe IV PRN PRN LINE FLUSH
--- NOTE | 2022-04-10 11:00 | Discharge Summary ---
Providers - Providers Date of Admission: 04/09/22 09:09 Date of discharge: 04/10/22 Attending physician: JEROD FUNG 04/09/22 10:03 Consult to Physician [CONS] Urgent Comment: Consulting Provider: ADELAIDA HOLM Physician Instructions: Reason For Exam: anemia of blood loss 04/09/22 12:48 Consult to Physician [CONS] Routine Comment: Consulting Provider: SINA PERKINS Physician Instructions: Reason For Exam: Pancreatic Cancer 04/10/22 09:32 Consult to Dietitian/Nutrition [CONS] Routine Physician Instructions: Reason For Exam: Pt has peg tube Reason for Consult: Write/Manage Tube Feeding Primary care physician: ARIAS PERKINS Hospitalization Reason for admission: Fever Condition: Stable Hospital course: 62yo female who presented to [facility] ED from [facility] and rehab with chief complaint of fever. 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 Patient reportedly had a fever of 102.1 today which prompted the visit to the emergency room. Patient was seen at [facility] on Wednesday and diagnosed with a UTI and discharged from the ED at that time with antibiotics for which she is on her third day [employer]. Patient is bed ridden and essentially nonverbal. The daughter was at the bedside and provided all history. The patient was admitted with diagnosis of probable pancreatic adenocarcinoma with metastasis, SIRS, normocytic anemia likely secondary to malignancy, history of CVA, chronically elevated troponin, history of DVT/PE status post IVC filter placement and hyponatremia. The patient had a CT of the abdomen pelvis completed on 04/09/2022 which revealed Abd/Pel CT 04/09/22: probable pancreatic adenocarcinoma involving head and distal body of the pancreas with effacement anc encasement of the SMV portal venous/splenic venous confluence resulting in moderate stenosis. Additional at least partial encasement of the hepatic arteries is suggested. SMA appears uninvolved. -extensive metastatic disease -expansile appearance of the left internal obturator muscle suggest metastatic involvement. -enlarged portacaval, sanjay hepatis, and upper abdominal lymph nodes likely metastatic. Hospital course: The patient received 1 unit PRBCs for the anemia with stabilization of hemoglobin to 8.0. Patient with no signs of active bleeding Patient with likely metastatic pancreatic adenocarcinoma with poor prognosis, complicated by pulmonary embolism and stroke Patient require EUS for biopsy of the pancreatic lesion per radiology. This cannot be performed at this facility and will require transferring to [facility] or other such tertiary care facility. This can be considered on outpatient setting given hospice plan unclear if would make any clinical difference in the patient's care. I conveyed the oncology and GI recommendations with regards to hospice to both daughters. The daughters are in agreement with hospice at [place]. One of the daughters is a disease case manager rn and has already reached out to [facility]. Case management to arrange for hospice at [place]. Dedicated discharge time 32 minutes Disposition: 50 HOSPICE/HOME Final Discharge Diagnosis (Prints w/discharge instructions): pancreatic adenocarcinoma with metastasis, SIRS, normocytic anemia likely secondary to malignancy, history of CVA, chronically elevated troponin, history of DVT/PE status post IVC filter placement and hyponatremia. Core Measure Documentation - Palliative Care Palliative Care/ Comfort Measures: Hospice Care - Core Measures Any of the following diagnoses?: none Exam - Constitutional Vitals: Temp Pulse Resp BP Pulse Ox 99.7 F H 75 18 144/78 99 04/10/22 08:30 04/10/22 08:30 04/10/22 08:30 04/10/22 08:30 04/10/22 08:30 General appearance: Present: no acute distress, well-nourished - EENT Eyes: Present: PERRL ENT: hearing intact, clear oral mucosa - Neck Neck: Present: supple, normal ROM - Respiratory Respiratory effort: normal Respiratory: bilateral: CTA - Cardiovascular Heart Sounds: Present: S1 & S2. Absent: rub, click - Extremities Extremities: pulses symmetrical, No edema Peripheral Pulses: within normal limits - Abdominal General gastrointestinal: Present: soft, non-tender, non-distended, normal bowel sounds Female genitourinary: Present: normal - Integumentary Integumentary: Present: clear, warm, dry - Musculoskeletal Musculoskeletal: gait normal, strength equal bilaterally - Psychiatric Psychiatric: appropriate mood/affect, intact judgment & insight - Neurologic Neurologic: CNII-XII intact, moves all extremities Plan Activity: advance as tolerated Weight Bearing Status: Weight Bear as Tolerated Diet: per dietitian instruction Follow up with: ARIAS PERKINS MD [Primary Care Provider] - 3-5 Days
--- NOTE | 2022-04-10 11:06 | Hem/Onc Progress Note ---
Subjective Date of service: 04/10/22 Interval history: Heme/Onc Progress note CPT 17167 Dx Pancreatic Adenocarcinoma 62yo female from [facility] with chief complaint of fever Past medical history of multiple CVAs with left sided residual weakness, CHF, PE, and DM 2 with insulin dependent. Reports of 102.1 fever which prompted the visit to the emergency room. Patient was seen at [facility] on Wednesday04/06/22 and diagnosed with a UTI and discharged from the ED at that time with antibiotics for which she is on her third day. Patient is bed ridden and only gives one-word responses such as yes and no. Patient had a recent hospitalization from 03/14 3-02/2029 for sepsis/UTI and where PEG tube was placed. Upon arrival to ED, labs noted with leukocytosis and anemia hemoglobin 6.2. Oncology following pancreatic cancer. Chest CT 04/09/22: bilateral hilar adenopathy, mediastinal adenopathy. Nodular airspace attenuation within the posterior sulci may reflect atelectasis. No discrete pulmonary nodules. Abd/Pel CT 04/09/22: probable pancreatic adenocarcinoma involving head and distal body of the pancreas with effacement anc encasement of the SMV portal venous/splenic venous confluence resulting in moderate stenosis. Additional at least partial encasement of the hepatic arteries is suggested. SMA appears uninvolved. -extensive metastatic disease -expansile appearance of the left internal obturator muscle suggest metastatic involvement. -enlarged portacaval, sanjay hepatis, and upper abdominal lymph nodes likely metastatic. Patient asleep during visit. Accompanied by family. Unable to complete biopsy as per radiology department. Discussed with family. Daughter contacting Hospice facilities. DATA REVIEWED IMP: Presumed pancreatic adenocarcinoma with extensive metastasis Normocytic anemia likely secondary to malignancy ECOG performance score of 4 PLAN: Transfuse 1 unit pRBC whenever HCT <23 Patient would not be a candidate for anti tumor therapy End of life/Hospice is appropriate from Oncology perspective Case d/w Dr. Tyron Castro. Laboratory Last Values WBC 11.6 K/mm3 (4.5-11.0) H 04/10/22 04:00 Hgb 8.0 gm/dl (10.1-14.3) L 04/10/22 04:00 Hct 25.7 % (30.3-42.9) L 04/10/22 04:00 MCV 88 fl (79-97) 04/10/22 04:00 Plt Count 325 K/mm3 (140-440) 04/10/22 04:00 Lymph % (Auto) 10.0 % (13.4-35.0) L 04/10/22 04:00 Seg Neutrophils % 80.7 % (40.0-70.0) H 04/10/22 04:00 Seg Neutrophils # 9.3 K/mm3 (1.8-7.7) H 04/10/22 04:00 PT 14.0 Sec. (12.2-14.9) 04/09/22 05:06 INR 0.95 (0.87-1.13) 04/09/22 05:06 Creatinine 0.8 mg/dL (0.6-1.2) 04/10/22 04:00 Total Bilirubin 0.20 mg/dL (0.1-1.2) 04/09/22 05:06 AST 26 units/L (5-40) 04/09/22 05:06 ALT 23 units/L (7-56) 04/09/22 05:06 Alkaline Phosphatase 136 units/L (35-129) H 04/09/22 05:06 Total Creatine Kinase 49 units/L (30-135) 04/09/22 05:06 Blood Type A POSITIVE 04/09/22 07:50 Antibody Screen Negative 04/09/22 07:50 Crossmatch See Detail 04/09/22 07:50 Objective - Constitutional Vitals: Last Vital Signs Temp 99.7 F H 04/10/22 08:30 Pulse 75 04/10/22 08:30 Resp 18 04/10/22 08:30 BP 144/78 04/10/22 08:30 Pulse Ox 99 04/10/22 08:30 - Labs Lab Results: Laboratory Results - last 24 hr 04/09/22 04/09/22 04/10/22 07:50 16:18 00:10 WBC RBC Hgb Hct MCV MCH MCHC RDW Plt Count Lymph % (Auto) [place] % (Auto) Eos % (Auto) Baso % (Auto) Lymph # (Auto) [place] # (Auto) Eos # (Auto) Baso # (Auto) Seg Neutrophils % Seg Neutrophils # Sodium Potassium Chloride Carbon Dioxide Anion Gap BUN Creatinine Estimated GFR BUN/Creatinine Ratio Glucose POC Glucose 91 71 Calcium Blood Type A POSITIVE Antibody Screen Negative Crossmatch See Detail 04/10/22 04/10/22 04/10/22 04:00 04:00 06:35 WBC 11.6 H RBC 2.94 L Hgb 8.0 L Hct 25.7 L MCV 88 MCH 27 L MCHC 31 RDW 16.2 H Plt Count 325 Lymph % (Auto) 10.0 L [place] % (Auto) 6.4 Eos % (Auto) 2.8 Baso % (Auto) 0.1 Lymph # (Auto) 1.2 [place] # (Auto) 0.7 Eos # (Auto) 0.3 Baso # (Auto) 0.0 Seg Neutrophils % 80.7 H Seg Neutrophils # 9.3 H Sodium 147 H Potassium 4.3 Chloride 112.8 H Carbon Dioxide 25 Anion Gap 14 BUN 27 H Creatinine 0.8 Estimated GFR > 60 BUN/Creatinine Ratio 34 Glucose 82 POC Glucose 73 Calcium 7.9 L Blood Type Antibody Screen Crossmatch Medications & Allergies - Medications Allergies/Adverse Reactions: Allergies Fish Containing Products Allergy (Verified 04/09/22 09:26) Rash Home Medications: Home Medications Medication Instructions Recorded Confirmed Last Taken Type Amlodipine Besylate [Norvasc] 5 mg PO DAILY 03/18/22 04/09/22 Unknown History Atorvastatin [Lipitor Tab] 80 mg PO QHS 03/18/22 04/09/22 Unknown History Cholecalciferol Vit D3 [Vitamin D3 1,000 unit PO QDAY 03/18/22 04/09/22 Unknown History 1,000 UNIT TAB] Clopidogrel [Plavix] 75 mg PO QDAY 03/18/22 04/09/22 Unknown History Duloxetine HCl [Drizalma Sprinkle] 30 mg PO BID 03/18/22 04/09/22 Unknown History Levothyroxine [Synthroid] 88 mcg PO QAM 03/18/22 04/09/22 Unknown History Metoprolol Xl [Toprol Xl] 50 mg PO BID 03/18/22 04/09/22 Unknown History levETIRAcetam [Keppra TAB] 750 mg PO BID 03/18/22 04/09/22 Unknown History AtorvaSTATin [Lipitor] 40 mg PO QHS 30 Days #30 tablet 03/23/22 04/09/22 Unknown Rx Insulin Glargine [Lantus VIAL] 30 units SUB-Q QAM units 03/23/22 04/09/22 Unknown Rx Insulin Glargine [Lantus VIAL] 30 units SUB-Q QAM 30 Days #3 vial 03/23/22 04/09/22 Unknown Rx Active Medications: Generic Name Dose Route Start Last Admin Trade Name Freq PRN Reason Stop Dose Admin Acetaminophen 650 mg 04/09/22 12:19 Acetaminophen 325 Mg Tab PO Q4H PRN Pain MILD(1-3)/Fever >100.5/PINEDA Morphine Sulfate 2 mg 04/09/22 09:09 Morphine 2 Mg/1 Ml Inj IV Q4H PRN Pain, Moderate (4-6) Morphine Sulfate 4 mg 04/09/22 12:23 Morphine 4 Mg/1 Ml Inj IV Q4H PRN Pain , Severe (7-10) Ondansetron HCl 4 mg 04/09/22 12:19 Ondansetron 4 Mg/2 Ml Inj IV Q8H PRN Nausea And Vomiting Sodium Chloride 10 ml 04/09/22 22:00 04/09/22 21:48 Sodium Chloride 0.9% 10 Ml Flush Syringe IV 10 ml BID DARIANA Administration Sodium Chloride 10 ml 04/09/22 12:19 Sodium Chloride 0.9% 10 Ml Flush Syringe IV PRN PRN LINE FLUSH
--- NOTE | 2022-04-10 13:20 | Electrocardiograph Report ---
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
--- NOTE | 2022-04-11 09:44 | Progress Note ---
Assessment and Plan Assessment and plan: Probable pancreatic adenocarcinoma with metastasis Abd/Pel CT 04/09/22: probable pancreatic adenocarcinoma involving head and distal body of the pancreas with effacement anc encasement of the SMV portal venous/splenic venous confluence resulting in moderate stenosis. Additional at least partial encasement of the hepatic arteries is suggested. SMA appears uninvolved. -extensive metastatic disease -expansile appearance of the left internal obturator muscle suggest metastatic i nvolvement. -enlarged portacaval, sanjay hepatis, and upper abdominal lymph nodes likely metastatic. Oncology and GI following. Follow CA 199 tumor marker Patient would not be a candidate for anti tumor therapy End of life/Hospice discussion is appropriate from Oncology perspective SIRS. The patient meets criteria given the fever and tachypnea but no documented source of infection We will follow-up blood cultures. Chest x-ray is negative. Fever likely related to tumor COVID-19 infection normocytic anemia likely secondary to malignancy. 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 Most recent was hemorrhagic cva in November 2021 and ischemic cva in January 2022. - PT/OT ordered - Patient at baseline is nonverbal and has some gait instability. - s/p PEG placement on 03/20 by GI. Chronically Elaveted troponin History of DVT/PE with IVC filter - per conversation with Dr Huerta, patient has a history of DVT/PE with IVC filter placement - anticoagulation is contraindicated in this patient. Hypernatremia - Na: 150 - likely volume depletion - hydration with hypotonic fluids: D5W ordered - avoid nephrotoxins - trend renal fx on bmp. 04/10/2022. Patient with likely metastatic pancreatic adenocarcinoma with poor prognosis, complicated by pulmonary embolism and stroke Patient require EUS for biopsy of the pancreatic lesion per radiology. This cannot be performed at this facility and will require transferring to [facility] or other such tertiary care facility. This can be considered on outpatient setting given hospice plan unclear if would make any clinical difference in the patient's care. I conveyed the oncology and GI recommendations with regards to hospice to both daughters. The daughters are in agreement with hospice at [facility]. One of the daughters is a case finishing machine adjuster and has already reached out to [facility]. We will coordinate with our case management department. 04/11/2022. Patient with COVID PCR that was positive. However, patient showing no signs of hypoxia. We will continue supportive care. Await for discharge to [facility] with hospice. History Interval history: No new issues overnight Hospitalist Physical - Constitutional Vitals: Temp Pulse Resp BP Pulse Ox 99.0 F 98 H 16 145/74 97 04/11/22 04:59 04/11/22 04:59 04/11/22 04:59 04/11/22 04:59 04/11/22 04:59 General appearance: Present: no acute distress, well-nourished - EENT Eyes: Present: PERRL, EOM intact ENT: hearing intact, clear oral mucosa, dentition normal - Neck Neck: Present: supple, normal ROM - Respiratory Respiratory effort: normal Respiratory: bilateral: CTA - Cardiovascular Rhythm: regular Heart Sounds: Present: S1 & S2. Absent: gallop, rub - Extremities Extremities: no ischemia, No edema, Full ROM - Abdominal General gastrointestinal: soft, non-tender, non-distended, normal bowel sounds - Integumentary Integumentary: Present: clear, warm, dry - Neurologic Neurologic: CNII-XII intact, moves all extremities HEART Score - HEART Score Troponin: Troponin T 0.109 ng/mL (0.00-0.029) H* 04/09/22 05:06 Results - Labs CBC & Chem 7: 04/10/22 04:00 04/10/22 04:00 Labs: Laboratory Last Values WBC 11.6 K/mm3 (4.5-11.0) H 04/10/22 04:00 RBC 2.94 M/mm3 (3.65-5.03) L 04/10/22 04:00 Hgb 8.0 gm/dl (10.1-14.3) L 04/10/22 04:00 Hct 25.7 % (30.3-42.9) L 04/10/22 04:00 MCV 88 fl (79-97) 04/10/22 04:00 MCH 27 pg (28-32) L 04/10/22 04:00 MCHC 31 % (30-34) 04/10/22 04:00 RDW 16.2 % (13.2-15.2) H 04/10/22 04:00 Plt Count 325 K/mm3 (140-440) 04/10/22 04:00 Lymph % (Auto) 10.0 % (13.4-35.0) L 04/10/22 04:00 [place] % (Auto) 6.4 % (0.0-7.3) 04/10/22 04:00 Eos % (Auto) 2.8 % (0.0-4.3) 04/10/22 04:00 Baso % (Auto) 0.1 % (0.0-1.8) 04/10/22 04:00 Lymph # (Auto) 1.2 K/mm3 (1.2-5.4) 04/10/22 04:00 [place] # (Auto) 0.7 K/mm3 (0.0-0.8) 04/10/22 04:00 Eos # (Auto) 0.3 K/mm3 (0.0-0.4) 04/10/22 04:00 Baso # (Auto) 0.0 K/mm3 (0.0-0.1) 04/10/22 04:00 Seg Neutrophils % 80.7 % (40.0-70.0) H 04/10/22 04:00 Seg Neutrophils # 9.3 K/mm3 (1.8-7.7) H 04/10/22 04:00 PT 14.0 Sec. (12.2-14.9) 04/09/22 05:06 INR 0.95 (0.87-1.13) 04/09/22 05:06 Sodium 147 mmol/L (137-145) H 04/10/22 04:00 Potassium 4.3 mmol/L (3.6-5.0) 04/10/22 04:00 Chloride 112.8 mmol/L (98-107) H 04/10/22 04:00 Carbon Dioxide 25 mmol/L (22-30) 04/10/22 04:00 Anion Gap 14 mmol/L 04/10/22 04:00 BUN 27 mg/dL (7-17) H 04/10/22 04:00 Creatinine 0.8 mg/dL (0.6-1.2) 04/10/22 04:00 Estimated GFR > 60 ml/min 04/10/22 04:00 BUN/Creatinine Ratio 34 % 04/10/22 04:00 Glucose 82 mg/dL (65-100) 04/10/22 04:00 POC Glucose 139 mg/dL (70-105) H 04/11/22 05:34 Ketones Quantitative Negative (Negative) 04/09/22 05:06 Lactic Acid 1.80 mmol/L (0.7-2.0) 04/09/22 05:06 Calcium 7.9 mg/dL (8.4-10.2) L 04/10/22 04:00 Total Bilirubin 0.20 mg/dL (0.1-1.2) 04/09/22 05:06 AST 26 units/L (5-40) 04/09/22 05:06 ALT 23 units/L (7-56) 04/09/22 05:06 Alkaline Phosphatase 136 units/L (35-129) H 04/09/22 05:06 Total Creatine Kinase 49 units/L (30-135) 04/09/22 05:06 Troponin T 0.109 ng/mL (0.00-0.029) H* 04/09/22 05:06 C-Reactive Protein 13.00 mg/dL (0.00-1.30) H 04/09/22 05:06 NT-Pro-B Natriuret Pep 607.9 pg/mL (0-900) 04/09/22 05:06 Total Protein 5.8 g/dL (6.3-8.2) L 04/09/22 05:06 Albumin 2.3 g/dL (3.9-5) L 04/09/22 05:06 Albumin/Globulin Ratio 0.7 % 04/09/22 05:06 Triglycerides 111 mg/dL (2-149) 04/09/22 05:06 Cholesterol 77 mg/dL (50-199) 04/09/22 05:06 LDL Cholesterol Direct 23 mg/dL (50-130) L 04/09/22 05:06 HDL Cholesterol 39 mg/dL (40-59) L 04/09/22 05:06 Cholesterol/HDL Ratio 1.97 % 04/09/22 05:06 Urine Color Yellow (Yellow) 04/09/22 07:54 Urine Turbidity Slightly cloudy (Clear) 04/09/22 07:54 Specific [place] (Man) 1.015 (1.003-1.030) 04/09/22 07:54 Ur Protein (Man) Negative mg/dL (Negative) 04/09/22 07:54 Ur Ketones (Man) Negative (Negative) 04/09/22 07:54 Ur Nitrite (Man) Negative (Negative) 04/09/22 07:54 Ur Reducing Substances Not Reportable 04/09/22 07:54 Urine Bilirubin (Man) Negative (Negative) 04/09/22 07:54 Urine Ictotest Not Reportable 04/09/22 07:54 Leukocyte Esterase (Man) Negative (Negative) 04/09/22 07:54 Urine WBC (Auto) 3.0 /HPF (0.0-6.0) 04/09/22 07:54 Urine RBC (Auto) 1.0 /HPF (0.0-6.0) 04/09/22 07:54 U Epithel Cells (Auto) 13.0 /HPF (0-13.0) 04/09/22 07:54 Urine RBC (Manual) Negative (Negative) 04/09/22 07:54 Amorphous Crystals Few 04/09/22 07:54 Urine Mucus Few /HPF 04/09/22 07:54 SARS-CoV-2 (PCR) Positive (Negative) A 04/10/22 13:38 Blood Type A POSITIVE 04/09/22 07:50 Antibody Screen Negative 04/09/22 07:50 Crossmatch See Detail 04/09/22 07:50 Microbiology: Microbiology 04/09/22 06:04 Peripheral/Venous Blood Culture - Preliminary NO GROWTH AFTER 24 HOURS 04/09/22 05:06 Peripheral/Venous Blood Culture - Preliminary NO GROWTH AFTER 24 HOURS Active Medications - Current Medications Current Medications: Generic Name Dose Route Start Last Admin Trade Name Freq PRN Reason Stop Dose Admin Acetaminophen 650 mg 04/09/22 12:19 Acetaminophen 325 Mg Tab PO Q4H PRN Pain MILD(1-3)/Fever >100.5/PINEDA Morphine Sulfate 2 mg 04/09/22 09:09 Morphine 2 Mg/1 Ml Inj IV Q4H PRN Pain, Moderate (4-6) Morphine Sulfate 4 mg 04/09/22 12:23 Morphine 4 Mg/1 Ml Inj IV Q4H PRN Pain , Severe (7-10) Ondansetron HCl 4 mg 04/09/22 12:19 Ondansetron 4 Mg/2 Ml Inj IV Q8H PRN Nausea And Vomiting Sodium Chloride 10 ml 04/09/22 22:00 04/10/22 22:04 Sodium Chloride 0.9% 10 Ml Flush Syringe IV 10 ml BID DARIANA Administration Sodium Chloride 10 ml 04/09/22 12:19 Sodium Chloride 0.9% 10 Ml Flush Syringe IV PRN PRN LINE FLUSH Nutrition/Malnutrition Assess - Dietary Evaluation Nutrition/Malnutrition Findings: Nutrition Notes Start: 04/10/22 12:51 Freq: Status: Active Protocol: Document 04/10/22 12:51 NEL (Rec: 04/10/22 13:05 NEL [email or web address]) Nutrition Notes Need for Assessment generated from: MD Order Initial or Follow up Assessment Current Diagnosis Diabetes,Heart Failure,Stroke Other Pertinent Diagnosis Fever, SIRS, probable pancreatic adenocarcinoma Current Diet No diet ordered Labs/Tests Na 147 BUN 27 Pertinent Medications Reviewed Height 4 ft 11 in Weight 63.5 kg [place] Body Weight (kg) 43.18 BMI 28.3 Weight Status Overweight Subjective/Other Information RD consulted for TF. Pt from [place] and has a PEG in place. Burn Absent Trauma Absent Difficulty In Swallowing Skin Integrity/Comment No skin breakdown reported Minimum of two criteria No #1 Nutrition Diagnosis Swallowing difficulty Etiology hx of multiple CVAs As Evidenced by Signs and Symptoms pt NPO and requires EN support to meet nutrient needs Is patient on ventilator? No Is Patient Ambulatory and/or Out of Bed No REE-([facility]-confined to bed) 1331.844 Calculation Used for Recommendations [facility] Additional Notes Pro needs 1-1.2g/k-76g/ day Fluid needs 1ml/kcal Nutrition Intervention Nutrition Support: Glucerna 1.2 at 45ml/hr with 100ml water flush q4h (sec to hypernatremia). Kcal 1,296 Protein (gm) 65 Carbohydrates (gm) 124 Fat (gm) 65 Fluid (mL) 869 Fiber (gm) 17 Goal #1 TF tolerance Goal #2 TF to meet at least 75% energy and pro needs Anticipated Discharge Needs: Continue EN support Follow-Up By: 04/13/22 Additional Comments F/U: TF start/tolerance, BM
[2022-04-11] MEDS ORDERED: LIP THERAPY VASELINE TP PRN (16:22)
[2022-04-11] MEDS: INSULIN LISPRO 100 UNIT/ML SUB-Q SCH (17:53)
[2022-04-11] MEDS ORDERED: INSULIN LISPRO 100 UNIT/ML SUB-Q SCH (18:00)
[2022-04-12] MEDS: INSULIN LISPRO 100 UNIT/ML SUB-Q SCH ×4 (00:44→17:09)
--- NOTE | 2022-04-12 07:33 | Progress Note ---
Assessment and Plan Assessment and plan: 62yo female from [facility] and rehab with chief complaint of fever Past medical history of multiple CVAs with left sided residual weakness, CHF, PE, and DM 2 with insulin dependent. Reports of 102.1 fever which prompted the visit to the emergency room. Patient was seen at [facility] on Wednesday04/06/22 and diagnosed with a UTI and discharged from the ED at that time with antibiotics for which she is on her third day. Patient is bed ridden and only gives one-word responses such as yes and no. Patient had a recent hospitalization from 03/14 3-02/2029 for sepsis/UTI and where PEG tube was placed. Upon arrival to ED, labs noted with leukocytosis and anemia hemoglobin 6.2. Oncology following pancreatic cancer. Probable pancreatic adenocarcinoma with metastasis Abd/Pel CT 04/09/22: probable pancreatic adenocarcinoma involving head and distal body of the pancreas with effacement anc encasement of the SMV portal venous/splenic venous confluence resulting in moderate stenosis. Additional at least partial encasement of the hepatic arteries is suggested. SMA appears uninvolved. -extensive metastatic disease -expansile appearance of the left internal obturator muscle suggest metastatic involvement. -enlarged portacaval, sanjay hepatis, and upper abdominal lymph nodes likely metastatic. Oncology and GI following. Follow CA 199 tumor marker Patient would not be a candidate for anti tumor therapy End of life/Hospice discussion is appropriate from Oncology perspective SIRS. The patient meets criteria given the fever and tachypnea but no documented source of infection We will follow-up blood cultures. Chest x-ray is negative. Fever likely related to tumor COVID-19 infection normocytic anemia likely secondary to malignancy. 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 Most recent was hemorrhagic cva in November 2021 and ischemic cva in January 2022. - PT/OT ordered - Patient at baseline is nonverbal and has some gait instability. - s/p PEG placement on 03/20 by GI. Chronically Elaveted troponin History of DVT/PE with IVC filter - per conversation with Dr Huerta, patient has a history of DVT/PE with IVC filter placement - anticoagulation is contraindicated in this patient. Hypernatremia - Na: 150 - likely volume depletion - hydration with hypotonic fluids: D5W ordered - avoid nephrotoxins - trend renal fx on bmp. 04/10/2022. Patient with likely metastatic pancreatic adenocarcinoma with poor prognosis, complicated by pulmonary embolism and stroke Patient require EUS for biopsy of the pancreatic lesion per radiology. This cannot be performed at this facility and will require transferring to [facility] or other such tertiary care facility. This can be considered on outpatient setting given hospice plan unclear if would make any clinical difference in the patient's care. I conveyed the oncology and GI recommendations with regards to hospice to both daughters. The daughters are in agreement with hospice at [place]. One of the daughters is a dependency case manager and has already reached out to [facility]. We will coordinate with our case management department. 04/11/2022. Patient with COVID PCR that was positive. However, patient showing no signs of hypoxia. We will continue supportive care. Await for discharge to [place] with hospice. 04/12/2022. Patient with a low-grade fever of 100.5. However, patient still showing no signs of hypoxia with saturation 100% on room air. [facility]. History Interval history: No new issues overnight Hospitalist Physical - Constitutional Vitals: Temp Pulse Resp BP Pulse Ox 100.5 F H 97 H 18 142/89 99 04/12/22 04:37 04/12/22 04:37 04/12/22 04:37 04/12/22 04:37 04/12/22 04:37 General appearance: Present: no acute distress, well-nourished - EENT Eyes: Present: PERRL, EOM intact ENT: hearing intact, clear oral mucosa, dentition normal - Neck Neck: Present: supple, normal ROM - Respiratory Respiratory effort: normal Respiratory: bilateral: CTA - Cardiovascular Rhythm: regular Heart Sounds: Present: S1 & S2. Absent: gallop, rub - Extremities Extremities: no ischemia, No edema, Full ROM - Abdominal General gastrointestinal: soft, non-tender, non-distended, normal bowel sounds - Integumentary Integumentary: Present: clear, warm, dry - Neurologic Neurologic: CNII-XII intact, moves all extremities HEART Score - HEART Score Troponin: Troponin T 0.109 ng/mL (0.00-0.029) H* 04/09/22 05:06 Results - Labs CBC & Chem 7: 04/10/22 04:00 04/10/22 04:00 Labs: Laboratory Last Values WBC 11.6 K/mm3 (4.5-11.0) H 04/10/22 04:00 RBC 2.94 M/mm3 (3.65-5.03) L 04/10/22 04:00 Hgb 8.0 gm/dl (10.1-14.3) L 04/10/22 04:00 Hct 25.7 % (30.3-42.9) L 04/10/22 04:00 MCV 88 fl (79-97) 04/10/22 04:00 MCH 27 pg (28-32) L 04/10/22 04:00 MCHC 31 % (30-34) 04/10/22 04:00 RDW 16.2 % (13.2-15.2) H 04/10/22 04:00 Plt Count 325 K/mm3 (140-440) 04/10/22 04:00 Lymph % (Auto) 10.0 % (13.4-35.0) L 04/10/22 04:00 [place] % (Auto) 6.4 % (0.0-7.3) 04/10/22 04:00 Eos % (Auto) 2.8 % (0.0-4.3) 04/10/22 04:00 Baso % (Auto) 0.1 % (0.0-1.8) 04/10/22 04:00 Lymph # (Auto) 1.2 K/mm3 (1.2-5.4) 04/10/22 04:00 [place] # (Auto) 0.7 K/mm3 (0.0-0.8) 04/10/22 04:00 Eos # (Auto) 0.3 K/mm3 (0.0-0.4) 04/10/22 04:00 Baso # (Auto) 0.0 K/mm3 (0.0-0.1) 04/10/22 04:00 Seg Neutrophils % 80.7 % (40.0-70.0) H 04/10/22 04:00 Seg Neutrophils # 9.3 K/mm3 (1.8-7.7) H 04/10/22 04:00 PT 14.0 Sec. (12.2-14.9) 04/09/22 05:06 INR 0.95 (0.87-1.13) 04/09/22 05:06 Sodium 147 mmol/L (137-145) H 04/10/22 04:00 Potassium 4.3 mmol/L (3.6-5.0) 04/10/22 04:00 Chloride 112.8 mmol/L (98-107) H 04/10/22 04:00 Carbon Dioxide 25 mmol/L (22-30) 04/10/22 04:00 Anion Gap 14 mmol/L 04/10/22 04:00 BUN 27 mg/dL (7-17) H 04/10/22 04:00 Creatinine 0.8 mg/dL (0.6-1.2) 04/10/22 04:00 Estimated GFR > 60 ml/min 04/10/22 04:00 BUN/Creatinine Ratio 34 % 04/10/22 04:00 Glucose 82 mg/dL (65-100) 04/10/22 04:00 POC Glucose 189 mg/dL (70-105) H 04/12/22 05:38 Ketones Quantitative Negative (Negative) 04/09/22 05:06 Lactic Acid 1.80 mmol/L (0.7-2.0) 04/09/22 05:06 Calcium 7.9 mg/dL (8.4-10.2) L 04/10/22 04:00 Total Bilirubin 0.20 mg/dL (0.1-1.2) 04/09/22 05:06 AST 26 units/L (5-40) 04/09/22 05:06 ALT 23 units/L (7-56) 04/09/22 05:06 Alkaline Phosphatase 136 units/L (35-129) H 04/09/22 05:06 Total Creatine Kinase 49 units/L (30-135) 04/09/22 05:06 Troponin T 0.109 ng/mL (0.00-0.029) H* 04/09/22 05:06 C-Reactive Protein 13.00 mg/dL (0.00-1.30) H 04/09/22 05:06 NT-Pro-B Natriuret Pep 607.9 pg/mL (0-900) 04/09/22 05:06 Total Protein 5.8 g/dL (6.3-8.2) L 04/09/22 05:06 Albumin 2.3 g/dL (3.9-5) L 04/09/22 05:06 Albumin/Globulin Ratio 0.7 % 04/09/22 05:06 Triglycerides 111 mg/dL (2-149) 04/09/22 05:06 Cholesterol 77 mg/dL (50-199) 04/09/22 05:06 LDL Cholesterol Direct 23 mg/dL (50-130) L 04/09/22 05:06 HDL Cholesterol 39 mg/dL (40-59) L 04/09/22 05:06 Cholesterol/HDL Ratio 1.97 % 04/09/22 05:06 Urine Color Yellow (Yellow) 04/09/22 07:54 Urine Turbidity Slightly cloudy (Clear) 04/09/22 07:54 Specific [place] (Man) 1.015 (1.003-1.030) 04/09/22 07:54 Ur Protein (Man) Negative mg/dL (Negative) 04/09/22 07:54 Ur Ketones (Man) Negative (Negative) 04/09/22 07:54 Ur Nitrite (Man) Negative (Negative) 04/09/22 07:54 Ur Reducing Substances Not Reportable 04/09/22 07:54 Urine Bilirubin (Man) Negative (Negative) 04/09/22 07:54 Urine Ictotest Not Reportable 04/09/22 07:54 Leukocyte Esterase (Man) Negative (Negative) 04/09/22 07:54 Urine WBC (Auto) 3.0 /HPF (0.0-6.0) 04/09/22 07:54 Urine RBC (Auto) 1.0 /HPF (0.0-6.0) 04/09/22 07:54 U Epithel Cells (Auto) 13.0 /HPF (0-13.0) 04/09/22 07:54 Urine RBC (Manual) Negative (Negative) 04/09/22 07:54 Amorphous Crystals Few 04/09/22 07:54 Urine Mucus Few /HPF 04/09/22 07:54 SARS-CoV-2 (PCR) Positive (Negative) A 04/10/22 13:38 Blood Type A POSITIVE 04/09/22 07:50 Antibody Screen Negative 04/09/22 07:50 Crossmatch See Detail 04/09/22 07:50 Microbiology: Microbiology 04/09/22 06:04 Peripheral/Venous Blood Culture - Preliminary NO GROWTH AFTER 48 HOURS 04/09/22 05:06 Peripheral/Venous Blood Culture - Preliminary NO GROWTH AFTER 48 HOURS Hayes/IV: Voiding Method Incontinent Active Medications - Current Medications Current Medications: Generic Name Dose Route Start Last Admin Trade Name Freq PRN Reason Stop Dose Admin Acetaminophen 650 mg 04/09/22 12:19 Acetaminophen 325 Mg Tab PO Q4H PRN Pain MILD(1-3)/Fever >100.5/PINEDA Hydrophilic Ointment 1 applic 04/11/22 16:22 Lip Therapy Vaseline TP DIRECT PRN Dry Lips Insulin Human Lispro 0 unit 04/11/22 18:30 04/12/22 06:04 Insulin Lispro 100 Unit/Ml SUB-Q 2 unit Q6HR DARIANA Administration Protocol Morphine Sulfate 2 mg 04/09/22 09:09 Morphine 2 Mg/1 Ml Inj IV Q4H PRN Pain, Moderate (4-6) Morphine Sulfate 4 mg 04/09/22 12:23 Morphine 4 Mg/1 Ml Inj IV Q4H PRN Pain , Severe (7-10) Ondansetron HCl 4 mg 04/09/22 12:19 Ondansetron 4 Mg/2 Ml Inj IV Q8H PRN Nausea And Vomiting Sodium Chloride 10 ml 04/09/22 22:00 04/11/22 21:33 Sodium Chloride 0.9% 10 Ml Flush Syringe IV 10 ml BID DARIANA Administration Sodium Chloride 10 ml 04/09/22 12:19 Sodium Chloride 0.9% 10 Ml Flush Syringe IV PRN PRN LINE FLUSH Nutrition/Malnutrition Assess - Dietary Evaluation Nutrition/Malnutrition Findings: Nutrition Notes Start: 04/10/22 12:51 Freq: Status: Active Protocol: Document 04/10/22 12:51 NEL (Rec: 04/10/22 13:05 [email or web address] [id number]) Nutrition Notes Need for Assessment generated from: MD Order Initial or Follow up Assessment Current Diagnosis Diabetes,Heart Failure,Stroke Other Pertinent Diagnosis Fever, SIRS, probable pancreatic adenocarcinoma Current Diet No diet ordered Labs/Tests Na 147 BUN 27 Pertinent Medications Reviewed Height 4 ft 11 in Weight 63.5 kg [place] Body Weight (kg) 43.18 BMI 28.3 Weight Status Overweight Subjective/Other Information RD consulted for TF. Pt from [place] and has a PEG in place. Burn Absent Trauma Absent Difficulty In Swallowing Skin Integrity/Comment No skin breakdown reported Minimum of two criteria No #1 Nutrition Diagnosis Swallowing difficulty Etiology hx of multiple CVAs As Evidenced by Signs and Symptoms pt NPO and requires EN support to meet nutrient needs Is patient on ventilator? No Is Patient Ambulatory and/or Out of Bed No REE-([facility]-confined to bed) 1331.844 Calculation Used for Recommendations [facility] Additional Notes Pro needs 1-1.2g/k-76g/ day Fluid needs 1ml/kcal Nutrition Intervention Nutrition Support: Glucerna 1.2 at 45ml/hr with 100ml water flush q4h (sec to hypernatremia). Kcal 1,296 Protein (gm) 65 Carbohydrates (gm) 124 Fat (gm) 65 Fluid (mL) 869 Fiber (gm) 17 Goal #1 TF tolerance Goal #2 TF to meet at least 75% energy and pro needs Anticipated Discharge Needs: Continue EN support Follow-Up By: 04/13/22 Additional Comments F/U: TF start/tolerance, BM
[2022-04-13] MEDS: INSULIN LISPRO 100 UNIT/ML SUB-Q SCH ×3 (00:03→11:56)
--- NOTE | 2022-04-13 09:04 | Progress Note ---
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 Reports of 102.1 fever which prompted the visit to the emergency room. Patient was seen at [facility] on Wednesday04/06/22 and diagnosed with a UTI and discharged from the ED at that time with antibiotics for which she is on her third day. Patient is bed ridden and only gives one-word responses such as yes and no. Patient had a recent hospitalization from 03/14 3-02/2029 for sepsis/UTI and where PEG tube was placed. Upon arrival to ED, labs noted with leukocytosis and anemia hemoglobin 6.2. Oncology following pancreatic cancer. Probable pancreatic adenocarcinoma with metastasis Abd/Pel CT 04/09/22: probable pancreatic adenocarcinoma involving head and distal body of the pancreas with effacement anc encasement of the SMV portal venous/splenic venous confluence resulting in moderate stenosis. Additional at least partial encasement of the hepatic arteries is suggested. SMA appears uninvolved. -extensive metastatic disease -expansile appearance of the left internal obturator muscle suggest metastatic involvement. -enlarged portacaval, sanjay hepatis, and upper abdominal lymph nodes likely metastatic. Oncology and GI following. Follow CA 199 tumor marker Patient would not be a candidate for anti tumor therapy End of life/Hospice discussion is appropriate from Oncology perspective SIRS. The patient meets criteria given the fever and tachypnea but no documented source of infection We will follow-up blood cultures. Chest x-ray is negative. Fever likely related to tumor COVID-19 infection normocytic anemia likely secondary to malignancy. 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 Most recent was hemorrhagic cva in November 2021 and ischemic cva in January 2022. - PT/OT ordered - Patient at baseline is nonverbal and has some gait instability. - s/p PEG placement on 03/20 by GI. Chronically Elaveted troponin History of DVT/PE with IVC filter - per conversation with Dr Huerta, patient has a history of DVT/PE with IVC filter placement - anticoagulation is contraindicated in this patient. Hypernatremia - Na: 150 - likely volume depletion - hydration with hypotonic fluids: D5W ordered - avoid nephrotoxins - trend renal fx on bmp. 04/10/2022. Patient with likely metastatic pancreatic adenocarcinoma with poor prognosis, complicated by pulmonary embolism and stroke Patient require EUS for biopsy of the pancreatic lesion per radiology. This cannot be performed at this facility and will require transferring to [facility] or other such tertiary care facility. This can be considered on outpatient setting given hospice plan unclear if would make any clinical difference in the patient's care. I conveyed the oncology and GI recommendations with regards to hospice to both daughters. The daughters are in agreement with hospice at [place]. One of the daughters is a case monitor and has already reached out to [facility]. We will coordinate with our case management department. 04/11/2022. Patient with COVID PCR that was positive. However, patient showing no signs of hypoxia. We will continue supportive care. Await for discharge to [place] with hospice. 04/12/2022. Patient with a low-grade fever of 100.5. However, patient still showing no signs of hypoxia with saturation 100% on room air. Await for discharge back to [facility] with hospice. 04/13/2022. Patient does have some hyperglycemia. We will initiate sliding scale regular insulin. Patient continues to show no signs of hypoxia. Therefore, no treatment for COVID infection. Await hospice arrangements and discharge back to [facility] History Interval history: No new issues overnight Hospitalist Physical - Constitutional Vitals: Temp Pulse Resp BP Pulse Ox 100.6 F H 89 19 130/74 97 04/12/22 23:30 04/12/22 23:30 04/12/22 23:30 04/12/22 23:30 04/12/22 23:30 General appearance: Present: no acute distress, well-nourished - EENT Eyes: Present: PERRL, EOM intact ENT: hearing intact, clear oral mucosa, dentition normal - Neck Neck: Present: supple, normal ROM - Respiratory Respiratory effort: normal Respiratory: bilateral: CTA - Cardiovascular Rhythm: regular Heart Sounds: Present: S1 & S2. Absent: gallop, rub - Extremities Extremities: no ischemia, No edema, Full ROM - Abdominal General gastrointestinal: soft, non-tender, non-distended, normal bowel sounds - Integumentary Integumentary: Present: clear, warm, dry - Neurologic Neurologic: CNII-XII intact, moves all extremities HEART Score - HEART Score Troponin: Troponin T 0.109 ng/mL (0.00-0.029) H* 04/09/22 05:06 Results - Labs CBC & Chem 7: 04/10/22 04:00 04/10/22 04:00 Labs: Laboratory Last Values WBC 11.6 K/mm3 (4.5-11.0) H 04/10/22 04:00 RBC 2.94 M/mm3 (3.65-5.03) L 04/10/22 04:00 Hgb 8.0 gm/dl (10.1-14.3) L 04/10/22 04:00 Hct 25.7 % (30.3-42.9) L 04/10/22 04:00 MCV 88 fl (79-97) 04/10/22 04:00 MCH 27 pg (28-32) L 04/10/22 04:00 MCHC 31 % (30-34) 04/10/22 04:00 RDW 16.2 % (13.2-15.2) H 04/10/22 04:00 Plt Count 325 K/mm3 (140-440) 04/10/22 04:00 Lymph % (Auto) 10.0 % (13.4-35.0) L 04/10/22 04:00 [place] % (Auto) 6.4 % (0.0-7.3) 04/10/22 04:00 Eos % (Auto) 2.8 % (0.0-4.3) 04/10/22 04:00 Baso % (Auto) 0.1 % (0.0-1.8) 04/10/22 04:00 Lymph # (Auto) 1.2 K/mm3 (1.2-5.4) 04/10/22 04:00 [place] # (Auto) 0.7 K/mm3 (0.0-0.8) 04/10/22 04:00 Eos # (Auto) 0.3 K/mm3 (0.0-0.4) 04/10/22 04:00 Baso # (Auto) 0.0 K/mm3 (0.0-0.1) 04/10/22 04:00 Seg Neutrophils % 80.7 % (40.0-70.0) H 04/10/22 04:00 Seg Neutrophils # 9.3 K/mm3 (1.8-7.7) H 04/10/22 04:00 PT 14.0 Sec. (12.2-14.9) 04/09/22 05:06 INR 0.95 (0.87-1.13) 04/09/22 05:06 Sodium 147 mmol/L (137-145) H 04/10/22 04:00 Potassium 4.3 mmol/L (3.6-5.0) 04/10/22 04:00 Chloride 112.8 mmol/L (98-107) H 04/10/22 04:00 Carbon Dioxide 25 mmol/L (22-30) 04/10/22 04:00 Anion Gap 14 mmol/L 04/10/22 04:00 BUN 27 mg/dL (7-17) H 04/10/22 04:00 Creatinine 0.8 mg/dL (0.6-1.2) 04/10/22 04:00 Estimated GFR > 60 ml/min 04/10/22 04:00 BUN/Creatinine Ratio 34 % 04/10/22 04:00 Glucose 82 mg/dL (65-100) 04/10/22 04:00 POC Glucose 235 mg/dL (70-105) H 04/13/22 05:58 Ketones Quantitative Negative (Negative) 04/09/22 05:06 Lactic Acid 1.80 mmol/L (0.7-2.0) 04/09/22 05:06 Calcium 7.9 mg/dL (8.4-10.2) L 04/10/22 04:00 Total Bilirubin 0.20 mg/dL (0.1-1.2) 04/09/22 05:06 AST 26 units/L (5-40) 04/09/22 05:06 ALT 23 units/L (7-56) 04/09/22 05:06 Alkaline Phosphatase 136 units/L (35-129) H 04/09/22 05:06 Total Creatine Kinase 49 units/L (30-135) 04/09/22 05:06 Troponin T 0.109 ng/mL (0.00-0.029) H* 04/09/22 05:06 C-Reactive Protein 13.00 mg/dL (0.00-1.30) H 04/09/22 05:06 NT-Pro-B Natriuret Pep 607.9 pg/mL (0-900) 04/09/22 05:06 Total Protein 5.8 g/dL (6.3-8.2) L 04/09/22 05:06 Albumin 2.3 g/dL (3.9-5) L 04/09/22 05:06 Albumin/Globulin Ratio 0.7 % 04/09/22 05:06 Triglycerides 111 mg/dL (2-149) 04/09/22 05:06 Cholesterol 77 mg/dL (50-199) 04/09/22 05:06 LDL Cholesterol Direct 23 mg/dL (50-130) L 04/09/22 05:06 HDL Cholesterol 39 mg/dL (40-59) L 04/09/22 05:06 Cholesterol/HDL Ratio 1.97 % 04/09/22 05:06 CA 19-9 Antigen 04757 U/mL (<34) H 04/09/22 15:58 Urine Color Yellow (Yellow) 04/09/22 07:54 Urine Turbidity Slightly cloudy (Clear) 04/09/22 07:54 Specific [place] (Man) 1.015 (1.003-1.030) 04/09/22 07:54 Ur Protein (Man) Negative mg/dL (Negative) 04/09/22 07:54 Ur Ketones (Man) Negative (Negative) 04/09/22 07:54 Ur Nitrite (Man) Negative (Negative) 04/09/22 07:54 Ur Reducing Substances Not Reportable 04/09/22 07:54 Urine Bilirubin (Man) Negative (Negative) 04/09/22 07:54 Urine Ictotest Not Reportable 04/09/22 07:54 Leukocyte Esterase (Man) Negative (Negative) 04/09/22 07:54 Urine WBC (Auto) 3.0 /HPF (0.0-6.0) 04/09/22 07:54 Urine RBC (Auto) 1.0 /HPF (0.0-6.0) 04/09/22 07:54 U Epithel Cells (Auto) 13.0 /HPF (0-13.0) 04/09/22 07:54 Urine RBC (Manual) Negative (Negative) 04/09/22 07:54 Amorphous Crystals Few 04/09/22 07:54 Urine Mucus Few /HPF 04/09/22 07:54 SARS-CoV-2 (PCR) Positive (Negative) A 04/10/22 13:38 Blood Type A POSITIVE 04/09/22 07:50 Antibody Screen Negative 04/09/22 07:50 Crossmatch See Detail 04/09/22 07:50 Microbiology: Microbiology 04/09/22 06:04 Peripheral/Venous Blood Culture - Preliminary NO GROWTH AFTER 72 HOURS 04/09/22 05:06 Peripheral/Venous Blood Culture - Preliminary NO GROWTH AFTER 72 HOURS Hayes/IV: Voiding Method Incontinent Active Medications - Current Medications Current Medications: Generic Name Dose Route Start Last Admin Trade Name Freq PRN Reason Stop Dose Admin Acetaminophen 650 mg 04/09/22 12:19 04/13/22 00:02 Acetaminophen 325 Mg Tab PO 650 mg Q4H PRN Administration Pain MILD(1-3)/Fever >100.5/PINEDA Hydrophilic Ointment 1 applic 04/11/22 16:22 Lip Therapy Vaseline TP DIRECT PRN Dry Lips Insulin Human Lispro 0 unit 04/11/22 18:30 04/13/22 06:40 Insulin Lispro 100 Unit/Ml SUB-Q 3 unit Q6HR DARIANA Administration Protocol Morphine Sulfate 2 mg 04/09/22 09:09 Morphine 2 Mg/1 Ml Inj IV Q4H PRN Pain, Moderate (4-6) Morphine Sulfate 4 mg 04/09/22 12:23 Morphine 4 Mg/1 Ml Inj IV Q4H PRN Pain , Severe (7-10) Ondansetron HCl 4 mg 04/09/22 12:19 Ondansetron 4 Mg/2 Ml Inj IV Q8H PRN Nausea And Vomiting Sodium Chloride 10 ml 04/09/22 22:00 04/12/22 22:41 Sodium Chloride 0.9% 10 Ml Flush Syringe IV 10 ml BID DARIANA Administration Sodium Chloride 10 ml 04/09/22 12:19 Sodium Chloride 0.9% 10 Ml Flush Syringe IV PRN PRN LINE FLUSH Nutrition/Malnutrition Assess - Dietary Evaluation Nutrition/Malnutrition Findings: Nutrition Notes Start: 04/10/22 12:51 Freq: Status: Active Protocol: Document 04/10/22 12:51 NEL (Rec: 04/10/22 13:05 NEL [id number]) Nutrition Notes Need for Assessment generated from: MD Order Initial or Follow up Assessment Current Diagnosis Diabetes,Heart Failure,Stroke Other Pertinent Diagnosis Fever, SIRS, probable pancreatic adenocarcinoma Current Diet No diet ordered Labs/Tests Na 147 BUN 27 Pertinent Medications Reviewed Height 4 ft 11 in Weight 63.5 kg [place] Body Weight (kg) 43.18 BMI 28.3 Weight Status Overweight Subjective/Other Information RD consulted for TF. Pt from [place] and has a PEG in place. Burn Absent Trauma Absent Difficulty In Swallowing Skin Integrity/Comment No skin breakdown reported Minimum of two criteria No #1 Nutrition Diagnosis Swallowing difficulty Etiology hx of multiple CVAs As Evidenced by Signs and Symptoms pt NPO and requires EN support to meet nutrient needs Is patient on ventilator? No Is Patient Ambulatory and/or Out of Bed No REE-([facility]-confined to bed) 1331.844 Calculation Used for Recommendations [facility] Additional Notes Pro needs 1-1.2g/k-76g/ day Fluid needs 1ml/kcal Nutrition Intervention Nutrition Support: Glucerna 1.2 at 45ml/hr with 100ml water flush q4h (sec to hypernatremia). Kcal 1,296 Protein (gm) 65 Carbohydrates (gm) 124 Fat (gm) 65 Fluid (mL) 869 Fiber (gm) 17 Goal #1 TF tolerance Goal #2 TF to meet at least 75% energy and pro needs Anticipated Discharge Needs: Continue EN support Follow-Up By: 04/13/22 Additional Comments F/U: TF start/tolerance, BM
[2022-04-13 13:00] VITALS: BP 142/84
== END 2022-04-13 14:36 | disposition hospice, home (50) | DRG 178 ==
LOC: ED 04:13 → 4A 09:09 → 3A 04-10 17:37
PROVIDERS: ADMIT Hospitalist; ATTEND Hospitalist
PROC: 30233N1 Transfusion of Nonautologous Red Blood Cells into Peripheral Vein, Percutaneous Approach (ICD-10-PCS; principal; 2022-04-09)
DX: U07.1 COVID-19 (principal); C25.9 Malignant neoplasm of pancreas, unspecified; E87.0 Hyperosmolality and hypernatremia; R65.10 Systemic inflammatory response syndrome (SIRS) of non-infectious origin without acute organ dysfunction; K86.9 Disease of pancreas, unspecified; I50.9 Heart failure, unspecified; E11.9 Type 2 diabetes mellitus without complications; D51.0 Vitamin B12 deficiency anemia due to intrinsic factor deficiency
CPT/HCPCS: 36415; 71045; 71250; 74177; 80048; 80053; 80061; 81001; 82010; 82140; 82550; 82962; 83880; 84484; 85025; 85610; 86140; 86301; 86850; 86900; 86901; 86920; 87040; 93005; 96365; 96366; 99285; G0378; Q9967; J0696; J1815; J1885; J7030; J7040; P9016; U0003